=== PATIENT | female | born 1955 | race Caucasian/White ===

== ENCOUNTER 2017-01-08 13:42 | Day surgery (SDC) | payer MEDICARE, BC ==
[~2017-01-08 13:42] MED LIST: DIPRIVAN 200 MG/20 ML IV ONE; Kenalog-40 IM ONE; Lactated Ringers 1,000 ML IV ONE; Sensorcaine 0.25% 10 ML IJ ONE
--- NOTE | 2017-01-08 17:20 | XRAY ---
14 seconds fluoroscopy time in surgery for right side L2-5 MBB.
--- NOTE | 2017-01-10 02:53 | XRAY ---
Indication: Right L2-L5 MBB. Intraoperative fluoroscopy was provided for 14 seconds. Single digital spot image submitted for interpretation demonstrates posterior spinal needles with the tips projected over the expected course of the right L2-L5 nerve roots. Correlate with intraoperative findings/report.
== END 2017-01-08 16:00 | disposition home or self-care (01) ==
LOC: SDC-PAIN 13:42
PROVIDERS: ATTEND Pain Medicine Interventional Pain Medicine
DX: M47.816 Spondylosis without myelopathy or radiculopathy, lumbar region (principal); M96.1 Postlaminectomy syndrome, not elsewhere classified; M54.16 Radiculopathy, lumbar region
CPT/HCPCS: 64493; 64494; 64495; 72020; 77003; J2704; J3301

== ENCOUNTER 2018-01-17 14:59 | Inpatient (IN) | payer MEDICARE, BC ==
[2018-01-17] MEDS ORDERED: MORPHINE SULFATE 4 MG INJ IV ONE ×2 (15:24→17:51)
[2018-01-17] MEDS ORDERED: Zofran 4 MG/2 ML VIAL IV ONE (15:24)
[2018-01-17] MEDS ORDERED: Sodium Chloride 0.9% 1000 ML 1,000 ML IV STA (15:24)
[2018-01-17] MEDS ORDERED: Zofran 4 MG/2 ML VIAL ONE (15:34)
[2018-01-17] MEDS ORDERED: MORPHINE SULFATE 4 MG INJ ONE (15:35)
[2018-01-17] MEDS ORDERED: Sodium Chloride 0.9% 1000 ML 1,000 ML ONE (15:35)
--- NOTE | 2018-01-17 15:45 | ERPHSYRPT ---
- History of Present Illness Time Seen by Provider: 01/17/18 15:17 Historian: patient Exam Limitations: no limitations Patient Subjective Stated Complaint: Pt states "I woke up this morning and was having pain in my upper belly. The pain is now going into my back." Triage Nursing Assessment: Pt alert and oriented X 3, skin pwd. PT ambulates with an upright steady gait, able to speak in clear full sentences. Pt in no apparent respiratory distress. PT holding abdomen. Physician History: 62 y/o female comes to the ER with complaints of epigastric abdominal pain that started this afternoon. Pt describes the pain as sharp, constant, 10/10, with radiation to back and pt has not taken any pain meds. Pt also admits to nausea and vomiting. Pt denies any fever, chills, chest pain, shortness of breath, diarrhea or constipation. Timing/Duration: today Activities at Onset: none Quality: sharpness Abdominal Pain Onset Location: epigastric Pain Radiation: scapula, back Severity of Pain-Max: severe Severity of Pain-Current: severe Modifying Factors: Improves With: nothing Associated Symptoms: nausea, vomiting Previous symptoms: no prior history Allergies/Adverse Reactions: Latex, Natural Rubber Allergy (Intermediate, Verified 12/06/15 12:15) methotrexate Allergy (Intermediate, Verified 12/06/15 12:15) Home Medications: Albuterol 2.5 mg/0.5 ml [PROVENTIL Solution 2.5 MG/0.5 ML] 2.5 mg IH QID 10/21/15 [History] Alendronate Sodium 35 mg PO UD 10/21/15 [History] Calcium Carbonate/Vitamin D3 [Calcium 500-Vit D3 400 Tablet] 1 each PO DAILY [History] Esomeprazole Magnesium [Nexium] 20 mg PO .PRN 05/03/16 [History] Furosemide 20 mg [Lasix 20 mg] 20 mg PO DAILY 05/03/16 [History] Budesonide/Formoterol Fumarate [Symbicort 160-4.5 Mcg Inhaler] 2 puff IH BID [History] Cholecalciferol (Vitamin D3) [Vitamin D] 0 unit PO WEEKLY 07/02/16 [History ] Potassium Chloride 10 Meq Tab* [Klor Con 10 MEQ] 10 meq PO BID 07/02/16 [ History] Gabapentin 400 mg [Neurontin 400 MG] 400 - 1,200 mg PO QHS 11/10/17 [ History] Duloxetine HCl 30 mg [Cymbalta 30 MG Capsule] 30 mg PO DAILY 01/17/18 [ History] Hx Tetanus, Diphtheria Vaccination/Date Given: Yes Hx Influenza Vaccination/Date Given: Yes Hx Pneumococcal Vaccination/Date Given: No Immunizations Up to Date: Yes - Review of Systems Constitutional: No Fever, No Chills Eyes: No Symptoms Ears, Nose, & Throat: No Symptoms Respiratory: No Cough, No Dyspnea Cardiac: No Chest Pain, No Edema, No Syncope Abdominal/Gastrointestinal: Abdominal Pain, Nausea, Vomiting, No Diarrhea Genitourinary Symptoms: No Dysuria Musculoskeletal: No Back Pain, No Neck Pain Skin: No Rash Neurological: No Dizziness, No Focal Weakness, No Sensory Changes Psychological: No Symptoms Endocrine: No Symptoms All Other Systems: Reviewed and Negative - Past Medical History Pertinent Past Medical History: Yes Cardiac History: Hypertension Respiratory History: COPD Endocrine Medical History: Hypothyroidism Musculoskeletal History: Fibromyalgia, Osteoarthritis, Rheumatoid Arthritis Other Medical History: CHRONIC BACK PAIN. DVT'S - Past Surgical History Past Surgical History: Yes Other Surgical History: rt shoulder/foot. back surgery - Social History Smoking Status: Never smoker Exposure to second hand smoke: No Drug Use: none Patient Lives Alone: No - Female History Hx Now: No - Nursing Vital Signs Nursing Vital Signs: Initial Vital Signs Temperature 99.4 F 01/17/18 15:13 Pulse Rate 98 H 01/17/18 15:13 Respiratory Rate 18 01/17/18 15:13 Blood Pressure 193/112 01/17/18 15:13 O2 Sat by Pulse Oximetry 98 01/17/18 15:13 Pain Scale Pain Intensity 4 - Physical Exam General Appearance: mild distress, alert Eye Exam: PERRL/EOMI, eyes nml inspection Ears, Nose, Throat Exam: normal ENT inspection, pharynx normal, moist mucous membranes Neck Exam: normal inspection, non-tender, supple, full range of motion Respiratory Exam: normal breath sounds, lungs clear, No respiratory distress Cardiovascular Exam: regular rate/rhythm, normal heart sounds Gastrointestinal/Abdomen Exam: soft, normal bowel sounds, tenderness, No distention, No mass, No guarding, No rebound Back Exam: normal inspection, normal range of motion, No CVA tenderness, No vertebral tenderness Extremity Exam: normal inspection, normal range of motion, pelvis stable Neurologic Exam: alert, oriented x 3, cooperative, normal mood/affect, nml cerebellar function, sensation nml, No motor deficits Skin Exam: normal color, warm, dry SpO2: 98 Oxygen Delivery: Room Air - Course Nursing assessment & vital signs reviewed: Yes EKG Interpreted by Me: RATE, NORMAL AXIS, NORMAL INTERVALS, NORMAL QRS, NORMAL ST-T Ordered Tests: Active Orders 24 hr Category Date Time Status EKG-ER Only STAT Care 01/17/18 15:24 Active IV Insertion STAT Care 01/17/18 15:24 Active NPO (ED) STAT Care 01/17/18 15:24 Active ABDOMEN AND PELVIS W CONTRAST [CT] Stat Exams 01/17/18 16:12 Taken AMYLASE Stat Lab 01/17/18 15:30 Completed CBC W DIFF Stat Lab 01/17/18 15:30 Completed CMP Stat Lab 01/17/18 15:30 Completed LIPASE Stat Lab 01/17/18 15:30 Completed Lactic Acid Stat Lab 01/17/18 15:33 Completed PROTIME WITH INR Stat Lab 01/17/18 15:30 Completed TROPONIN Q3H Lab 01/17/18 15:30 Completed TROPONIN Q3H Lab 01/17/18 18:30 Ordered TROPONIN Q3H Lab 01/17/18 21:30 Ordered TROPONIN Q3H Lab 01/18/18 00:30 Ordered TROPONIN Q3H Lab 01/18/18 03:30 Ordered UA W/RFX UR CULTURE Stat Lab 01/17/18 17:45 Received Medication Summary Generic Name Dose Route Start Last Admin Trade Name Freq PRN Reason Stop Dose Admin Ampicillin Sodium/Sulbactam Sodium 3 gm in 100 mls @ 200 mls/hr 01/17/18 17: 44 Unasyn 3gm / Nacl 100ml IV 01/17/18 18:13 STAT STA Discontinued Medications Generic Name Dose Route Start Last Admin Trade Name Freq PRN Reason Stop Dose Admin Sodium Chloride 1,000 mls @ 999 mls/hr 01/17/18 15:24 01/17/18 15:43 Sodium Chloride 0.9% 1000 Ml IV 01/17/18 16:24 999 mls/hr .Q1H1M STA Administration Sodium Chloride Confirm 01/17/18 15:35 Sodium Chloride 0.9% 1000 Ml Administered 01/17/18 15:36 Dose 1,000 mls @ ud .ROUTE .STK-MED ONE Morphine Sulfate 4 mg 01/17/18 15:24 01/17/18 15:43 Morphine Sulfate 4 Mg Inj IV 01/17/18 15:25 4 mg STAT ONE Administration Morphine Sulfate Confirm 01/17/18 15:35 Morphine Sulfate 4 Mg Inj Administered 01/17/18 15:36 Dose 4 mg .ROUTE .STK-MED ONE Ondansetron HCl 4 mg 01/17/18 15:24 01/17/18 15:43 Zofran 4 Mg/2 Ml Vial IV 01/17/18 15:25 4 mg STAT ONE Administration Ondansetron HCl Confirm 01/17/18 15:34 Zofran 4 Mg/2 Ml Vial Administered 01/17/18 15:35 Dose 4 mg .ROUTE .STK-MED ONE Lab/Rad Data: Laboratory Result Diagrams 01/17/18 15:30 01/17/18 15:30 Laboratory Results 01/17/18 01/17/18 01/17/18 Range/Units 17:45 15:33 15:30 WBC (4.0-10.5) K/mm3 RBC (4.1-5.4) M/mm3 Hgb (12.0-16.0) gm/dl Hct (35-47) % MCV (78-100) fl MCH (26-32) pg MCHC (32-36) g/dl RDW (11.5-14.0) % Plt Count (150-450) K/mm3 MPV (6-9.5) fl Gran % (36.0-66.0) % Eos # (Auto) (0-0.5) Absolute Lymphs (auto) (1.0-4.6) Absolute Monos (auto) (0.0-1.3) Lymphocytes % (24.0-44.0) % Monocytes % (0.0-12.0) % Eosinophils % (0.00-5.0) % Basophils % (0.0-0.4) % Absolute Granulocytes (1.4-6.9) Basophils # (0-0.4) PT (9.95-12.35) SECONDS INR (0.8-3.0) Sodium (137-145) mmol/L Potassium (3.5-5.1) mmol/L Chloride (98-107) mmol/L Carbon Dioxide (22-30) mmol/L Anion Gap (5-15) MEQ/L BUN (7-17) mg/dL Creatinine (0.52-1.04) mg/dL Estimated GFR ML/MIN Glucose (74-106) mg/dL Lactic Acid 1.7 (0.4-2.0) Calcium (8.4-10.2) mg/dL Total Bilirubin (0.2-1.3) mg/dL AST (14-36) U/L ALT (0-35) U/L Alkaline Phosphatase (38-126) U/L Troponin I < 0.012 (0.000-0.034) ng/mL Serum Total Protein (6.3-8.2) g/dL Albumin (3.5-5.0) g/dL Amylase (30-110) U/L Lipase (23-300) U/L Ur Collection Type CLEAN CATCH Urine Color YELLOW (YELLOW) Urine Appearance CLEAR (CLEAR) Urine pH 7.5 (5-6) Ur Specific [place] 1.005 (1.005-1.025) Urine Protein NEGATIVE (Negative) Urine Ketones NEGATIVE (NEGATIVE) Urine Blood NEGATIVE (0-5) River/ul Urine Nitrite NEGATIVE (NEGATIVE) Urine Bilirubin NEGATIVE (NEGATIVE) Urine Urobilinogen NORMAL (0-1) mg/dL Ur Leukocyte Esterase NEGATIVE (NEGATIVE) Urine Culture Reflexed NO (NO) Urine Glucose NEGATIVE (NEGATIVE) mg/dL Specimen Received 01/17/18 3040 01/17/18 01/17/18 01/17/18 Range/Units 15:30 15:30 15:30 WBC 5.3 (4.0-10.5) K/mm3 RBC 4.96 (4.1-5.4) M/mm3 Hgb 13.9 (12.0-16.0) gm/dl Hct 43.1 (35-47) % MCV 86.9 (78-100) fl MCH 28.0 (26-32) pg MCHC 32.3 (32-36) g/dl RDW 13.8 (11.5-14.0) % Plt Count 513 H (150-450) K/mm3 MPV 9.8 H (6-9.5) fl Gran % 65.1 (36.0-66.0) % Eos # (Auto) 0.02 (0-0.5) Absolute Lymphs (auto) 1.10 (1.0-4.6) Absolute Monos (auto) 0.71 (0.0-1.3) Lymphocytes % 20.7 L (24.0-44.0) % Monocytes % 13.4 H (0.0-12.0) % Eosinophils % 0.4 (0.00-5.0) % Basophils % 0.4 (0.0-0.4) % Absolute Granulocytes 3.46 (1.4-6.9) Basophils # 0.02 (0-0.4) PT 26.0 H (9.95-12.35) SECONDS INR 2.22 (0.8-3.0) Sodium 141 (137-145) mmol/L Potassium 4.3 (3.5-5.1) mmol/L Chloride 106 (98-107) mmol/L Carbon Dioxide 25 (22-30) mmol/L Anion Gap 14.6 (5-15) MEQ/L BUN 11 (7-17) mg/dL Creatinine 0.84 (0.52-1.04) mg/dL Estimated GFR > 60.0 ML/MIN Glucose 134 H (74-106) mg/dL Lactic Acid (0.4-2.0) Calcium 9.2 (8.4-10.2) mg/dL Total Bilirubin 2.80 H (0.2-1.3) mg/dL AST 778 H (14-36) U/L ALT 458 H (0-35) U/L Alkaline Phosphatase 189 H (38-126) U/L Troponin I (0.000-0.034) ng/mL Serum Total Protein 7.7 (6.3-8.2) g/dL Albumin 4.0 (3.5-5.0) g/dL Amylase 52 (30-110) U/L Lipase 111 (23-300) U/L Ur Collection Type Urine Color (YELLOW) Urine Appearance (CLEAR) Urine pH (5-6) Ur Specific [place] (1.005-1.025) Urine Protein (Negative) Urine Ketones (NEGATIVE) Urine Blood (0-5) River/ul Urine Nitrite (NEGATIVE) Urine Bilirubin (NEGATIVE) Urine Urobilinogen (0-1) mg/dL Ur Leukocyte Esterase (NEGATIVE) Urine Culture Reflexed (NO) Urine Glucose (NEGATIVE) mg/dL Specimen Received - Progress Progress: improved Progress Note: 01/17/18 17:45 Pt feels better after receiving morphine, zofran and NS fluids. The CT scan abd/ pelvis shows enlarged 5.5 cm transverse diameter gallbladder and mild 4.1 mm gallbladder wall thickening. Pt also has elevated LFTs. I spoke to Dr Cortes who wants the patient to be admitted to Dr Toth and he will see the patient in the morning. Pt will be started on unasyn. Pt has been admitted to Dr Toth. - Departure Time of Disposition: 17:47 Departure Disposition: In-patient Admission Clinical Impression: Cholecystitis Condition: Fair Critical Care Time: Yes Critical Care Time(excluding separately billable procedures): 30-74 minutes Referrals: JONNATHAN WOODSON [Primary Care Provider] -
[2018-01-17 15:53] LABS: INR 2.22 (0.8-3.0)
[2018-01-17 15:57] LABS: BASOPHIL % 0.4 % (0.0-0.4); Basophil (Absolute #) 0.02 (0-0.4); Eosinophil % 0.4 % (0.00-5.0); Eosinophil (Absolute #) 0.02 (0-0.5); Granulocyte Absolute (ANC) 3.46 (1.4-6.9); Granulocytes % 65.1 % (36.0-66.0); Hematocrit 43.1 % (35-47); Hemoglobin 13.9 gm/dl (12.0-16.0); Lymphocytes % 20.7 % (24.0-44.0); Mean Cell Volume 86.9 fl (78-100); Mean Corpuscular Hgb Concent. 32.3 g/dl (32-36); Mean Platelet Volume 9.8 fl (6-9.5); Monocyte (Absolute #) 0.71 (0.0-1.3); Monocytes % 13.4 % (0.0-12.0); Platelet Count 513 K/mm3 (150-450); Red Blood Count 4.96 M/mm3 (4.1-5.4); Red Cell Distribution Width 13.8 % (11.5-14.0); White Blood Count 5.3 K/mm3 (4.0-10.5)
[2018-01-17 16:05] LABS: ALKALINE PHOSPHATASE 189 U/L (38-126); AMYLASE 52 U/L (30-110); ANION GAP 14.6 MEQ/L (5-15); BLOOD UREA NITROGEN 11 mg/dL (7-17); CHLORIDE 106 mmol/L (98-107); Calcium 9.2 mg/dL (8.4-10.2); Carbon Dioxide 25 mmol/L (22-30); Creatinine 1 0.84 mg/dL (0.52-1.04); Glucose 134 mg/dL (74-106); LIPASE 111 U/L (23-300); Potassium 4.3 mmol/L (3.5-5.1); SGPT/ALT 458 U/L (0-35); SODIUM 141 mmol/L (137-145); Total Protein 7.7 g/dL (6.3-8.2)
[2018-01-17 16:16] LABS: SGOT/AST 778 U/L (14-36)
[2018-01-17] MEDS ORDERED: Unasyn 3GM / NaCl 100ML 3 GM/100 ML IVPB IV STA (17:44)
[2018-01-17 17:51] LABS: Appearance CLEAR (CLEAR); Bilirubin NEGATIVE (NEGATIVE); Blood NEGATIVE Ery/ul (0-5); Glucose NEGATIVE (NEGATIVE); Ketones NEGATIVE (NEGATIVE); Leukocyte Esterase NEGATIVE (NEGATIVE); Nitrite NEGATIVE (NEGATIVE); Ph 7.5 (5-6); Protein,Urine Dip NEGATIVE (Negative); Specific Gravity 1.005 (1.005-1.025); Urobilinogen NORMAL mg/dL (0-1)
[2018-01-17] MEDS: Unasyn 3GM / NaCl 100ML 3 GM/100 ML IVPB IV SCH ×2 (18:33→23:54)
[2018-01-17] MEDS: Sodium Chloride 0.9% 1000 ML 1,000 ML IV SCH (18:45)
--- NOTE | 2018-01-17 21:06 | XRAY ---
Indication: Cholecystitis. Multiple contiguous axial images obtained through the abdomen and pelvis using 80 cc Isovue 370 contrast only. Comparison: None. Lung bases demonstrates minimal bibasilar dependent atelectasis and bibasilar fibrosis/scarring. No infiltrate or effusion. Heart is not enlarged. Moderate size hiatal hernia. Noncontrasted stomach and bowel loops appear nonobstructed. Normal appendix. Gallbladder is abnormally distended up to 5.5 cm in diameter with wall thickening/enhancement and minimal biliary distention. No free fluid/air. Calcified splenic granulomas. Tiny 5 mm right lower pole cortical cyst. Remaining liver, pancreas, spleen, adrenal glands, kidneys, ureters, bladder, and uterus appear unremarkable. Minimal aortic calcifications. No AAA or pathologic retroperitoneal lymphadenopathy. Osseous structures intact with moderate mid lumbar degenerative spondylosis and mild levoscoliosis centered at L. Impression: 1. Abnormal distended gallbladder with wall thickening/enhancement and minimal biliary distention but no gallstones. Rule out acalculous cholecystitis. 2. Incidental hiatal hernia, right renal cyst, and evidence for old granulomatous disease. Comment: Preliminary interpretation was made by C. No critical discrepancy. CTDI 23.68
[2018-01-17] MEDS ORDERED: Neurontin 400 MG PO SCH (22:00)
[2018-01-17] MEDS: Zofran 4 MG/2 ML VIAL IV PRN (22:14)
[2018-01-17] MEDS: MORPHINE SULFATE 4 MG INJ IV PRN (22:14)
[2018-01-17] MEDS: Neurontin 400 MG PO SCH (22:24)
[2018-01-17] MEDS: Cymbalta 30 MG Capsule PO SCH (22:24)
[2018-01-18] MEDS: Sodium Chloride 0.9% 1000 ML 1,000 ML IV SCH ×2 (05:22→16:45)
[2018-01-18] MEDS: MORPHINE SULFATE 4 MG INJ IV PRN ×2 (05:23→09:24)
[2018-01-18] MEDS: Unasyn 3GM / NaCl 100ML 3 GM/100 ML IVPB IV SCH ×4 (05:26→23:10)
[2018-01-18 05:41] LABS: BASOPHIL % 0.2 % (0.0-0.4); Basophil (Absolute #) 0.02 (0-0.4); Eosinophil % 0.2 % (0.00-5.0); Eosinophil (Absolute #) 0.02 (0-0.5); Granulocyte Absolute (ANC) 7.11 (1.4-6.9); Granulocytes % 73.4 % (36.0-66.0); Hematocrit 40.4 % (35-47); Lymphocyte (Absolute #) 0.83 (1.0-4.6); Lymphocytes % 8.6 % (24.0-44.0); Mean Cell Volume 87.8 fl (78-100); Mean Corpuscular Hemoglobin 28.3 pg (26-32); Mean Corpuscular Hgb Concent. 32.2 g/dl (32-36); Mean Platelet Volume 9.6 fl (6-9.5); Monocyte (Absolute #) 1.71 (0.0-1.3); Monocytes % 17.6 % (0.0-12.0); Platelet Count 452 K/mm3 (150-450); Red Cell Distribution Width 13.9 % (11.5-14.0); White Blood Count 9.7 K/mm3 (4.0-10.5)
[2018-01-18 05:58] LABS: ALBUMIN 3.3 g/dL (3.5-5.0); ALKALINE PHOSPHATASE 171 U/L (38-126); ANION GAP 11.9 MEQ/L (5-15); BLOOD UREA NITROGEN 9 mg/dL (7-17); CHLORIDE 110 mmol/L (98-107); Calcium 8.4 mg/dL (8.4-10.2); Carbon Dioxide 24 mmol/L (22-30); Creatinine 1 0.77 mg/dL (0.52-1.04); Glucose 110 mg/dL (74-106); INR 2.43 (0.8-3.0); Potassium 3.9 mmol/L (3.5-5.1); SGOT/AST 402 U/L (14-36); SGPT/ALT 317 U/L (0-35); SODIUM 142 mmol/L (137-145); Total Protein 6.7 g/dL (6.3-8.2)
--- NOTE | 2018-01-18 08:51 | PCM.HP ---
History of Present Illness - Chief Complaint Chief Complaint: choleystitis History of Present Illness: is a 62 year old female who presented to the ER with acute onset of epigastric abdominal pain. She had associated nausea and vomiting as well. Interestingly she has been seeing pain management for pain in her lower rib area for the last few weeks and has a chest CT and MRI of t-spine scheduled for tomorrow to evaluate these concerns. She denies any change in bowel habits. - Review of Systems Constitutional: No Fever, No Chills Respiratory: No Cough, No Short Of Breath Cardiac: No Chest Pain, No Edema, No Syncope Abdominal/Gastrointestinal: Abdominal Pain, Nausea, Vomiting, No Diarrhea, No Constipation, No Hematemesis, No Hematochezia Genitourinary Symptoms: No Dysuria Skin: No Rash All Other Systems: Reviewed and Negative Medications & Allergies Home Medications: Home Medication List Alendronate Sodium 35 mg PO WEEKLY 10/21/15 [History Confirmed 01/17/18] Esomeprazole Magnesium [Nexium] 20 mg PO .PRN 05/03/16 [History Confirmed ] Furosemide 20 mg [Lasix 20 mg] 20 mg PO DAILY 05/03/16 [History Confirmed 01/17/18] Budesonide/Formoterol Fumarate [Symbicort 160-4.5 Mcg Inhaler] 2 puff IH BID [History Confirmed 01/17/18] Cholecalciferol (Vitamin D3) [Vitamin D] 50,000 unit PO WEEKLY 07/02/16 [ History Confirmed 01/17/18] Potassium Chloride 10 Meq Tab* [Klor Con 10 MEQ] 10 meq PO BID 07/02/16 [ History Confirmed 01/17/18] Gabapentin 400 mg [Neurontin 400 MG] 400 mg PO TID 11/10/17 [History Confirmed 01/17/18] Calcium Carbonate/Vitamin D3 [Calcium 600 + Vit D Caplet] 1 each PO BID [History Confirmed 01/17/18] Duloxetine HCl 30 mg [Cymbalta 30 MG Capsule] 30 mg PO HS 01/17/18 [ History Confirmed 01/17/18] Levothyroxine Sodium 88 Mcg [Synthroid 88 Mcg] 88 mcg PO DAILY 01/17/18 [ History Confirmed 01/17/18] Umeclidinium [place] [Incruse Ellipta] 62.5 mcg IH DAILY 01/17/18 [History Confirmed 01/17/18] Warfarin Sodium 3 mg [Coumadin 3 MG] 3 mg PO DAILY 01/17/18 [History Confirmed 01/17/18] Warfarin Sodium [Coumadin] 4 mg PO UD 01/17/18 [History Confirmed 01/17/18] Allergies/Adverse Reactions: Allergies Allergy/AdvReac Type Severity Reaction Status Date / Time Latex, Natural Rubber Allergy Intermediate Verified 12/06/15 12:15 methotrexate Allergy Intermediate Verified 12/06/15 12:15 - Past Medical History Past Medical History: Yes Neurological History: Peripheral Neuropathy ENT History: No Pertinent History Cardiac History: Hypertension Respiratory History: COPD Endocrine Medical History: Hypothyroidism Musculoskelatal History: Fibromyalgia, Osteoarthritis, Rheumatoid Arthritis GI Medical History: No Pertinent History History: Other Pyscho-Social History: Anxiety Comment: CHRONIC BACK PAIN. Kidney disease. DVT'S - Female History Are you now?: No - Past Surgical History Past Surgical History: Yes Neuro Surgical History: No Pertinent History Cardiac History: No Pertinent History Respiratory Surgery: No Pertinent History GI Surgical History: No Pertinent History Genitourinary Surgical Hx: No Pertinent History Musculskeletal Surgical Hx: Orthopedic Surgery Female Surgical History: No Pertinent History Other Surgical History: rt shoulder/foot. back surgery. - Social History Smoking Status: Never smoker Exposure to second hand smoke: No Alcohol: None Drug Use: none - Physical Exam Vital Signs: Vital Signs - 24 hr Temp Pulse Resp BP Pulse Ox 01/18/18 07:16 98.2 F 90 20 109/60 98 01/18/18 04:00 98.5 F 92 H 20 133/70 94 L 01/18/18 00:00 98.3 F 79 20 121/67 91 L 01/17/18 20:00 98.8 F 84 18 144/81 94 L 01/17/18 18:47 98.4 F 84 94 H 136/72 98 01/17/18 17:52 98 01/17/18 17:40 83 20 136/72 95 01/17/18 16:40 84 20 146/80 95 06/09/18 15:13 99.4 F 98 H 18 193/112 98 General Appearance: no apparent distress, alert Eye Exam: PERRL/EOMI, eyes nml inspection Respiratory Exam: normal breath sounds, lungs clear, No respiratory distress Cardiovascular Exam: regular rate/rhythm, normal heart sounds, normal peripheral pulses Gastrointestinal/Abdomen Exam: normal bowel sounds, tenderness (RUQ), No distention, No guarding Extremity Exam: normal inspection, normal range of motion, pelvis stable Skin Exam: normal color, warm, dry, No rash Results - Labs Lab/Micro Results: Lab Results-Last 24 Hours 01/17/18 01/17/18 01/18/18 Range/Units 18:30 21:45 01:00 WBC (4.0-10.5) K/mm3 RBC (4.1-5.4) M/mm3 Hgb (12.0-16.0) gm/dl Hct (35-47) % MCV (78-100) fl MCH (26-32) pg MCHC (32-36) g/dl RDW (11.5-14.0) % Plt Count (150-450) K/mm3 MPV (6-9.5) fl Gran % (36.0-66.0) % Eos # (Auto) (0-0.5) Absolute Lymphs (auto) (1.0-4.6) Absolute Monos (auto) (0.0-1.3) Lymphocytes % (24.0-44.0) % Monocytes % (0.0-12.0) % Eosinophils % (0.00-5.0) % Basophils % (0.0-0.4) % Absolute Granulocytes (1.4-6.9) Basophils # (0-0.4) PT (9.95-12.35) SECONDS INR (0.8-3.0) Sodium (137-145) mmol/L Potassium (3.5-5.1) mmol/L Chloride (98-107) mmol/L Carbon Dioxide (22-30) mmol/L Anion Gap (5-15) MEQ/L BUN (7-17) mg/dL Creatinine (0.52-1.04) mg/dL Estimated GFR ML/MIN Glucose (74-106) mg/dL Calcium (8.4-10.2) mg/dL Total Bilirubin (0.2-1.3) mg/dL AST (14-36) U/L ALT (0-35) U/L Alkaline Phosphatase (38-126) U/L Troponin I < 0.012 < 0.012 < 0.012 (0.000-0.034) ng/mL Serum Total Protein (6.3-8.2) g/dL Albumin (3.5-5.0) g/dL 01/18/18 01/18/18 01/18/18 Range/Units 05:05 05:05 05:05 WBC 9.7 (4.0-10.5) K/mm3 RBC 4.60 (4.1-5.4) M/mm3 Hgb 13.0 (12.0-16.0) gm/dl Hct 40.4 (35-47) % MCV 87.8 (78-100) fl MCH 28.3 (26-32) pg MCHC 32.2 (32-36) g/dl RDW 13.9 (11.5-14.0) % Plt Count 452 H (150-450) K/mm3 MPV 9.6 H (6-9.5) fl Gran % 73.4 H (36.0-66.0) % Eos # (Auto) 0.02 (0-0.5) Absolute Lymphs (auto) 0.83 L (1.0-4.6) Absolute Monos (auto) 1.71 H (0.0-1.3) Lymphocytes % 8.6 L (24.0-44.0) % Monocytes % 17.6 H (0.0-12.0) % Eosinophils % 0.2 (0.00-5.0) % Basophils % 0.2 (0.0-0.4) % Absolute Granulocytes 7.11 H (1.4-6.9) Basophils # 0.02 (0-0.4) PT (9.95-12.35) SECONDS INR (0.8-3.0) Sodium 142 (137-145) mmol/L Potassium 3.9 (3.5-5.1) mmol/L Chloride 110 H (98-107) mmol/L Carbon Dioxide 24 (22-30) mmol/L Anion Gap 11.9 (5-15) MEQ/L BUN 9 (7-17) mg/dL Creatinine 0.77 (0.52-1.04) mg/dL Estimated GFR > 60.0 ML/MIN Glucose 110 H (74-106) mg/dL Calcium 8.4 (8.4-10.2) mg/dL Total Bilirubin 3.90 H (0.2-1.3) mg/dL AST 402 H (14-36) U/L ALT 317 H (0-35) U/L Alkaline Phosphatase 171 H (38-126) U/L Troponin I < 0.012 (0.000-0.034) ng/mL Serum Total Protein 6.7 (6.3-8.2) g/dL Albumin 3.3 L (3.5-5.0) g/dL 01/18/18 Range/Units 05:05 WBC (4.0-10.5) K/mm3 RBC (4.1-5.4) M/mm3 Hgb (12.0-16.0) gm/dl Hct (35-47) % MCV (78-100) fl MCH (26-32) pg MCHC (32-36) g/dl RDW (11.5-14.0) % Plt Count (150-450) K/mm3 MPV (6-9.5) fl Gran % (36.0-66.0) % Eos # (Auto) (0-0.5) Absolute Lymphs (auto) (1.0-4.6) Absolute Monos (auto) (0.0-1.3) Lymphocytes % (24.0-44.0) % Monocytes % (0.0-12.0) % Eosinophils % (0.00-5.0) % Basophils % (0.0-0.4) % Absolute Granulocytes (1.4-6.9) Basophils # (0-0.4) PT 28.5 H (9.95-12.35) SECONDS INR 2.43 (0.8-3.0) Sodium (137-145) mmol/L Potassium (3.5-5.1) mmol/L Chloride (98-107) mmol/L Carbon Dioxide (22-30) mmol/L Anion Gap (5-15) MEQ/L BUN (7-17) mg/dL Creatinine (0.52-1.04) mg/dL Estimated GFR ML/MIN Glucose (74-106) mg/dL Calcium (8.4-10.2) mg/dL Total Bilirubin (0.2-1.3) mg/dL AST (14-36) U/L ALT (0-35) U/L Alkaline Phosphatase (38-126) U/L Troponin I (0.000-0.034) ng/mL Serum Total Protein (6.3-8.2) g/dL Albumin (3.5-5.0) g/dL Assessment/Plan (1) Epigastric abdominal pain Current Visit: Yes Status: Acute Assessment & Plan: CT shows enlarged gallbladder with thick wall suspicious for acalculus cholecystitis. continue IV Unasyn, surgery consult pending. elevation of LFT's noted but no CBD dilatation seen on CT and they have improved since admission, NPO and IV abx therapy initiated. Code(s): R10.13 - EPIGASTRIC PAIN (2) Cholecystitis Current Visit: Yes Status: Acute Assessment & Plan: on Unasyn and surgery consult pending. Code(s): K81.9 - CHOLECYSTITIS, UNSPECIFIED
[2018-01-18] MEDS: Zofran 4 MG/2 ML VIAL IV PRN ×2 (09:27→20:13)
[2018-01-18] MEDS ORDERED: MEDICATION INTERVENTION MC SCH (10:00)
[2018-01-18] MEDS ORDERED: Neurontin 400 MG PO SCH ×2 (10:00→16:00)
[2018-01-18] MEDS ORDERED: NON-FORMULARY ITEM (Budesonide/Formoterol Fumarate [Symbicort 160-4.5 Mcg Inhaler] 2 PUFF) IH SCH (10:00)
[2018-01-18] MEDS ORDERED: SYNTHROID 88 MCG PO SCH (10:00)
[2018-01-18] MEDS ORDERED: NON-FORMULARY ITEM (Umeclidinium Bromide [Incruse Ellipta] 62.5 MCG) IH SCH (10:00)
[2018-01-18 10:23] LABS: Slide Review 1 YES
[2018-01-18] MEDS: Advair Hfa 230/21 Mcg COMMON CANISTER IH SCH ×2 (10:49→19:12)
[2018-01-18] MEDS: DILAUDID 2 MG INJECTION IV PRN ×2 (11:53→20:08)
[2018-01-18] MEDS: Cymbalta 30 MG Capsule PO SCH (22:00)
[2018-01-18] MEDS: Neurontin 400 MG PO SCH (22:01)
[2018-01-19] MEDS: Sodium Chloride 0.9% 1000 ML 1,000 ML IV SCH (04:01)
[2018-01-19] MEDS: Zofran 4 MG/2 ML VIAL IV PRN ×2 (04:02→10:14)
[2018-01-19] MEDS: Unasyn 3GM / NaCl 100ML 3 GM/100 ML IVPB IV SCH (05:42)
[2018-01-19 06:14] LABS: Hemoglobin 12.7 gm/dl (12.0-16.0); Mean Cell Volume 88.4 fl (78-100); Mean Corpuscular Hemoglobin 28.8 pg (26-32); Mean Corpuscular Hgb Concent. 32.6 g/dl (32-36); Mean Platelet Volume 9.9 fl (6-9.5); Platelet Count 407 K/mm3 (150-450); Red Blood Count 4.41 M/mm3 (4.1-5.4); Red Cell Distribution Width 14.2 % (11.5-14.0); White Blood Count 11.3 K/mm3 (4.0-10.5)
[2018-01-19 06:24] LABS: ALBUMIN 3.3 g/dL (3.5-5.0); ALKALINE PHOSPHATASE 186 U/L (38-126); ANION GAP 13.5 MEQ/L (5-15); BLOOD UREA NITROGEN 10 mg/dL (7-17); CHLORIDE 111 mmol/L (98-107); Calcium 8.1 mg/dL (8.4-10.2); Carbon Dioxide 22 mmol/L (22-30); Creatinine 1 0.68 mg/dL (0.52-1.04); Glucose 88 mg/dL (74-106); Potassium 3.7 mmol/L (3.5-5.1); SGOT/AST 214 U/L (14-36); SGPT/ALT 221 U/L (0-35); SODIUM 142 mmol/L (137-145); Total Protein 6.6 g/dL (6.3-8.2)
[2018-01-19] MEDS: Advair Hfa 230/21 Mcg COMMON CANISTER IH SCH (06:56)
[2018-01-19] MEDS: DILAUDID 2 MG INJECTION IV PRN (07:39)
[2018-01-19 08:03] VITALS: BP 146/64; PULSE 93; O2SAT 95
--- NOTE | 2018-01-19 09:06 | CONS ---
CONSULT DATE: 01/18/2018 REASON FOR CONSULT: Symptomatic cholelithiasis, acute cholecystitis. HISTORY: The patient is a 62 year-old female who came through the emergency room complaining of sudden onset of abdominal pain localizing in the epigastric and right upper quadrant area 10 out of 10. She had some nausea and vomiting. She denies any fever or chills, any shortness of breath. The patient was evaluated in the emergency room with CT scan which showed some inflammatory changes of the gallbladder wall and also some elevated liver enzymes. She was admitted for surgical management. PAST MEDICAL HISTORY: Positive for hypertension, chronic obstructive pulmonary disease, hypothyroidism. She also had osteoarthritis. Rheumatoid arthritis and chronic back pain. History of deep venous thrombosis. The patient has also been on Coumadin because of the deep venous thrombosis. PAST SURGICAL HISTORY: Shoulder surgery, foot surgery and back surgery. She also had section in the past. PHYSICAL EXAMINATION: She is alert, oriented. HEENT: Pupils are equal normoreactive. NECK: Supple. COR: Regular rhythm. ABDOMEN: Tender in the right upper quadrant. EXTREMITIES: Within normal limits. No pedal edema. LAB DATA AND TESTS: Normal white count. Liver enzymes seem to be elevated. On admission the total bilirubin was 2.8 and today was 3.4. IMPRESSION: At this point in time I suspect the possibility of acalculous cholelithiasis. The plan is to keep her on antibiotics, a lot of clear liquids today, nothing to eat or drink after midnight and proceed with MRCP tomorrow. If a common bile duct stone is found she will need to be transferred to [facility] for ERCP, laparoscopic cholecystectomy to follow.
--- NOTE | 2018-01-20 11:19 | DS ---
DISCHARGE DIAGNOSES: 1) ABDOMINAL PAIN. 2) CHOLECYSTITIS. 3) ELEVATED LIVER FUNCTION TEST WITH OBSTRUCTIVE PATTERN. 4) CORE WINDER ANTICOAGULATION FOR ANTIPHOPHOLIPID ANTIBODY SYNDROME. DISCHARGE PHYSICAL EXAMINATION: VITALS: Temperature current 98.9F, temperature max 98.9F, heart rate 81 to 93, respiratory rate 16 to 18, blood pressure 138 to 146 over 64 to 86. Oxygen saturation 93 to 96% on room air. GENERAL: The patient is lying in bed in no acute distress. CVS: She has a regular rate and rhythm. No murmurs, gallops or rubs are appreciated. CHEST: Clear to auscultation bilaterally. No crackles or wheezes. ABDOMEN: She had tenderness epigastric and right upper quadrant. She had normal bowel sounds. No guarding. No rigidity. Normal bowel sounds. EXTREMITIES: No clubbing, cyanosis or edema. SKIN: Warm, dry and intact. HOSPITAL COURSE: 1) ABDOMINAL PAIN: She was admitted through the emergency room after having a CT scan of her abdomen and pelvis that was read as abnormal distended gallbladder with wall thickening, enhancement and minimal biliary distention but no gallstones; rule out acalculus cholecystitis and an incidental hiatal hernia. General surgeon, Dr. Stanley Joy, was called from the emergency room and consulted on 01/18/2018 and asked for MRCP on 01/19/2018. However before this was done Dr. Adame was contacted as he was be covering on 01/19/2018 and he wanted her transferred for an ERCP regardless whether or not she had the MRCP or what the results were as he felt like she needed an ERCP to look for a possible common bile duct stone. The patient required medication for nausea and IV Dilaudid during her hospital stay for abdominal pain. She was on Unasyn since being in the emergency department. Her white blood cell count was initially 5.3 and at the time of discharge was 11.3. The case was discussed with Dr. Romero who was available at [facility] to do an ERCP. I then discussed with the Hospitalist, Dr. Hinton, who was willing to have the patient transferred under his care to see the specialist. 2) CHOLECYSTITIS: Eventually she will need her gallbladder removed. However first she needs further evaluation for possible common bile duct stone. 3) ELEVATED LIVER FUNCTION TESTS WITH OBSTRUCTION: AST, ALT, alkaline phosphatase and total bilirubin were all elevated. The bilirubin slowly went up during her hospitalization and was 4.5 at the time of her discharge. 4) CORE WINDER ANTICOAGULATION: Dr. Toth held her Coumadin on 01/18/2018 in preparation for possible surgery. She is on Coumadin for history of antiphospholipid antibody syndrome. DISCHARGE MEDICATIONS: Please see her current inpatient medications at the time of discharge. DISPOSITION: The patient was discharged to [facility] in fair condition. She needed to see a specialist for ERCP, further evaluation and management. The surgeon wanted her to have an ERCP before they would think about doing the cholecystectomy and we do not have an ERCP available here at our hospital.
== END 2018-01-19 10:15 | disposition short-term general hospital (02) | DRG 445 ==
LOC: ED 14:59 → MED SURG 18:19
PROVIDERS: ADMIT Family Medicine; ATTEND Internal Medicine
DX: K80.00 Calculus of gallbladder with acute cholecystitis without obstruction (principal); D68.61 Antiphospholipid syndrome; R10.13 Epigastric pain; R79.89 Other specified abnormal findings of blood chemistry; Z79.01 Long term (current) use of anticoagulants; Z79.899 Other long term (current) drug therapy; G62.9 Polyneuropathy, unspecified; K81.9 Cholecystitis, unspecified; I10 Essential (primary) hypertension; J44.9 Chronic obstructive pulmonary disease, unspecified; E03.9 Hypothyroidism, unspecified; M79.7 Fibromyalgia; F41.9 Anxiety disorder, unspecified; E80.7 Disorder of bilirubin metabolism, unspecified; I12.9 Hypertensive chronic kidney disease with stage 1 through stage 4 chronic kidney disease, or unspecified chronic kidney disease; N18.9 Chronic kidney disease, unspecified; M19.90 Unspecified osteoarthritis, unspecified site; M06.9 Rheumatoid arthritis, unspecified; Z86.718 Personal history of other venous thrombosis and embolism
CPT/HCPCS: 36000; 36415; 74177; 80053; 81002; 82150; 83605; 83690; 84484; 85025; 85027; 85610; 93005; 94150; 94640; 94760; 96360; 96365; 96374; 96375; 96376; 99285; J0295; J1170; J2270; J2405; A9270-GY

== ENCOUNTER 2020-07-01 12:31 | Inpatient (IN) | payer MEDICARE ==
[2020-07-01] MEDS ORDERED: DUONEB 0.5-3 MG/3 ml Neb IH ONE ×2 (12:56→13:02)
[2020-07-01] MEDS ORDERED: Sodium Chloride 0.9% 1000 ML 1,000 ML IV SCH (13:00)
--- NOTE | 2020-07-01 13:02 | ERPHSYRPT ---
- History of Present Illness Time Seen by Provider: 07/01/20 12:59 Source: patient, EMS Exam Limitations: no limitations Patient Subjective Stated Complaint: SOB, cough, ASH Triage Nursing Assessment: pt to ED c/o ASH, SOB, chest tightness. pt states SOB last night and increasing today. pt does have hx COPD and does not require home o2. arrives to ED on 2 L NC O2 sat 96%. does appear SOB but states she is feeling more relief. lungs clear in bases bilaterally, audible wheezing and wheezing auscultated in upper lungs. cap refil < 3 sec. denies COVID exposure. Physician History: 64-year-old female with significant past medical history of COPD morbid obesity started having a headache cough shortness of breath since last night which got worse today morning she called ambulance and patient was brought into the emergency room. When came to the emergency room patient was feeling little bit better after was given oxygen and nebulizer treatment. Patient denies any chest pain nausea vomiting diarrhea abdominal pain or Covid exposure. Patient also denies any fever or chills Timing/Duration: yesterday Severity of Dyspnea-Max: moderate Severity of Dyspnea-Current: mild Possible Cause: frequent episodes Modifying Factors: Improves With: albuterol nebulizer Associated Symptoms: cough, No fever, No productive cough Allergies/Adverse Reactions: Latex, Natural Rubber Allergy (Intermediate, Verified 07/01/20 12:54) methotrexate Allergy (Intermediate, Verified 07/01/20 12:54) Home Medications: Alendronate Sodium 35 mg PO WEEKLY 10/21/15 [History] Furosemide 20 mg [Lasix 20 mg] 20 mg PO DAILY 05/03/16 [History] Cholecalciferol (Vitamin D3) [Vitamin D] 50,000 unit PO WEEKLY 07/02/16 [History] Potassium Chloride 10 Meq Tab* [Klor Con 10 MEQ] 10 meq PO BID 07/02/16 [History] Gabapentin 400 mg [Neurontin 400 MG] 400 mg PO TID 11/10/17 [History] Calcium Carbonate/Vitamin D3 [Calcium 600 + Vit D Caplet] 1 each PO BID 01/17/18 [History] Levothyroxine Sodium 88 Mcg [Synthroid 88 Mcg] 88 mcg PO DAILY 01/17/18 [History] Warfarin Sodium 3 mg [Coumadin 3 MG] 3 mg PO DAILY 01/17/18 [History] Warfarin Sodium [Coumadin] 4 mg PO UD 01/17/18 [History] Hx Tetanus, Diphtheria Vaccination/Date Given: No Hx Influenza Vaccination/Date Given: Yes Hx Pneumococcal Vaccination/Date Given: Yes Immunizations Up to Date: Yes Travel Risk - International Travel Have you traveled outside of the country in past 3 weeks: No - Coronavirus Screening Are you exhibiting any of the following symptoms?: Yes Symptoms: Cough: New Onset, Shortness of Breath, Headaches/Body Aches/Fatigue Close contact with a COVID-19 positive Pt in past 14-21 Days: No - Review of Systems Constitutional: No Fever, No Chills Eyes: No Symptoms Ears, Nose, & Throat: No Symptoms Respiratory: Cough, Dyspnea on Exertion (MIRZA), No Dyspnea Cardiac: No Chest Pain, No Edema, No Syncope Abdominal/Gastrointestinal: No Abdominal Pain, No Nausea, No Vomiting, No Diarrhea Genitourinary Symptoms: No Dysuria Musculoskeletal: No Back Pain, No Neck Pain Skin: No Rash Neurological: Headache, No Dizziness, No Focal Weakness, No Sensory Changes Psychological: No Symptoms Endocrine: No Symptoms All Other Systems: Reviewed and Negative - Past Medical History Pertinent Past Medical History: Yes Neurological History: Peripheral Neuropathy ENT History: No Pertinent History Cardiac History: Hypertension Respiratory History: COPD Endocrine Medical History: Hypothyroidism Musculoskeletal History: Fibromyalgia, Osteoarthritis, Rheumatoid Arthritis GI Medical History: No Pertinent History History: Other Psycho-Social History: Anxiety Other Medical History: CHRONIC BACK PAIN. Kidney disease. DVT'S - Past Surgical History Past Surgical History: Yes Neuro Surgical History: No Pertinent History Cardiac: No Pertinent History Respiratory: No Pertinent History Gastrointestinal: Cholecystectomy Genitourinary: No Pertinent History Musculoskeletal: Orthopedic Surgery Female Surgical History: No Pertinent History Other Surgical History: rt shoulder/foot. back surgery. - Social History Smoking Status: Never smoker Exposure to second hand smoke: No Drug Use: none Patient Lives Alone: No - Female History Hx Now: No - Nursing Vital Signs Nursing Vital Signs: Initial Vital Signs Temperature 97.5 F 07/01/20 12:36 Pulse Rate 99 H 07/01/20 12:36 Respiratory Rate 23 07/01/20 12:36 Blood Pressure 157/96 07/01/20 12:36 O2 Sat by Pulse Oximetry 97 07/01/20 12:36 Pain Scale Pain Intensity 6 - Physical Exam General Appearance: no apparent distress, alert Eye Exam: PERRL/EOMI Neck Exam: normal inspection, supple Respiratory Exam: diminished breath sounds, crackles/rales Cardiovascular/Chest Exam: normal heart sounds, regular rate/rhythm Abdominal/Gastrointestinal Exam: soft, No tenderness, No distention, No mass Extremity Exam: non-tender, normal range of motion, normal inspection, no calf tenderness, no pedal edema Neurologic Exam: alert, oriented x 3, cooperative, check totaler II-XII nml as tested, sensation nml, No motor deficits Skin Exam: normal color, warm, No dry SpO2 Interpretation: normal SpO2: 97 O2 Delivery: Nasal Cannula Ordered Tests: Active Orders 24 hr Category Date Time Status [facility] STAT Care 07/01/20 12:58 Active EKG-ER Only STAT Care 07/01/20 12:58 Active CHEST 1 VIEW (PORTABLE) Stat Exams 07/01/20 12:57 Taken CBC W DIFF Stat Lab 07/01/20 13:22 Completed CMP Stat Lab 07/01/20 13:22 Completed NT PRO BNP Stat Lab 07/01/20 13:22 Completed TROPONIN Q3H Lab 07/01/20 13:22 Completed TROPONIN Q3H Lab 07/01/20 16:00 Ordered TROPONIN Q3H Lab 07/01/20 19:00 Ordered TROPONIN Q3H Lab 07/01/20 22:00 Ordered TROPONIN Q3H Lab 07/02/20 01:00 Ordered Respiratory Therapy Assessment DAILY RT 07/01/20 13:21 Completed Transfer Order Routine Transfer 07/01/20 Ordered Medication Summary Generic Name Dose Route Start Last Admin Trade Name Freq PRN Reason Stop Dose Admin Sodium Chloride 1,000 mls @ 50 mls/hr 07/01/20 13:00 07/01/20 13:06 Sodium Chloride 0.9% 1000 Ml IV 07/31/20 12:59 50 mls/hr .Q20H BETHEL Administration Discontinued Medications Generic Name Dose Route Start Last Admin Trade Name Freq PRN Reason Stop Dose Admin Albuterol/Ipratropium 3 ml 07/01/20 12:56 07/01/20 13:00 Duoneb 0.5-3 Mg/3 Ml Neb IH 07/01/20 12:57 3 ml STAT ONE Administration Albuterol/Ipratropium Confirm 07/01/20 13:02 Duoneb 0.5-3 Mg/3 Ml Neb Administered 07/01/20 13:03 Dose 3 ml IH .STK-MED ONE Azithromycin 500 mg in 250 mls @ 250 mls/hr 07/01/20 13:49 07/01/20 15:00 Zithromax 500 Mg/ 250 Ml Nacl Premix IV 07/01/20 14:48 250 mls/hr STAT STA 250 mls/hr Administration Ceftriaxone Sodium/Dextrose 1 g in 50 mls @ 100 mls/hr 07/01/20 13:49 15:00 Rocephin 1 Gm-D5w 50 Ml Bag IV 07/01/20 14:18 Infused STAT STA Infusion Ceftriaxone Sodium/Dextrose Confirm 07/01/20 14:22 Rocephin 1 Gm-D5w 50 Ml Bag Administered 07/01/20 14:23 Dose 1 g in 50 mls @ ud IV .STK-MED ONE Azithromycin Confirm 07/01/20 14:57 Zithromax 500 Mg/ 250 Ml Nacl Premix Administered 07/01/20 14:58 Dose 500 mg in 250 mls @ ud IV .STK-MED ONE Lab/Rad Data: Laboratory Result Diagrams 07/01/20 13:22 07/01/20 13:22 Laboratory Results 07/01/20 07/01/20 07/01/20 Range/Units 13:52 13:22 13:22 WBC (4.0-10.5) K/mm3 RBC (4.1-5.4) M/mm3 Hgb (12.0-16.0) gm/dl Hct (35-47) % MCV (78-100) fl MCH (26-32) pg MCHC (32-36) g/dl RDW (11.5-14.0) % Plt Count (150-450) K/mm3 MPV (7.5-11.0) fl Gran % (36.0-66.0) % Eos # (Auto) (0-0.5) Absolute Lymphs (auto) (1.0-4.6) Absolute Monos (auto) (0.0-1.3) Lymphocytes % (24.0-44.0) % Monocytes % (0.0-12.0) % Eosinophils % (0.00-5.0) % Basophils % (0.0-0.4) % Absolute Granulocytes (1.4-6.9) Basophils # (0-0.4) Sodium 139 (137-145) mmol/L Potassium 4.1 (3.5-5.1) mmol/L Chloride 106 (98-107) mmol/L Carbon Dioxide 26 (22-30) mmol/L Anion Gap 10.0 (5-15) MEQ/L BUN 10 (7-17) mg/dL Creatinine 0.90 (0.52-1.04) mg/dL Estimated GFR > 60.0 ML/MIN Glucose 109 H (74-106) mg/dL Calcium 8.8 (8.4-10.2) mg/dL Total Bilirubin 0.60 (0.2-1.3) mg/dL AST 41 H (14-36) U/L ALT 18 (0-35) U/L Alkaline Phosphatase 96 (38-126) U/L Troponin I < 0.012 (0.000-0.034) ng/mL NT-Pro-B Natriuret Pep 176 (0-900) pg/mL Serum Total Protein 6.7 (6.3-8.2) g/dL Albumin 3.6 (3.5-5.0) g/dL SARS-CoV-2 (PCR) NEGATIVE (NEGATIVE) 07/01/20 Range/Units 13:22 WBC 22.1 H (4.0-10.5) K/mm3 RBC 4.63 (4.1-5.4) M/mm3 Hgb 12.3 (12.0-16.0) gm/dl Hct 39.4 (35-47) % MCV 85.1 (78-100) fl MCH 26.6 (26-32) pg MCHC 31.2 L (32-36) g/dl RDW 15.0 H (11.5-14.0) % Plt Count 407 (150-450) K/mm3 MPV 9.1 (7.5-11.0) fl Gran % 79.2 H (36.0-66.0) % Eos # (Auto) 0.20 (0-0.5) Absolute Lymphs (auto) 2.90 (1.0-4.6) Absolute Monos (auto) 1.48 H (0.0-1.3) Lymphocytes % 13.1 L (24.0-44.0) % Monocytes % 6.7 (0.0-12.0) % Eosinophils % 0.9 (0.00-5.0) % Basophils % 0.1 (0.0-0.4) % Absolute Granulocytes 17.51 H (1.4-6.9) Basophils # 0.03 (0-0.4) Sodium (137-145) mmol/L Potassium (3.5-5.1) mmol/L Chloride (98-107) mmol/L Carbon Dioxide (22-30) mmol/L Anion Gap (5-15) MEQ/L BUN (7-17) mg/dL Creatinine (0.52-1.04) mg/dL Estimated GFR ML/MIN Glucose (74-106) mg/dL Calcium (8.4-10.2) mg/dL Total Bilirubin (0.2-1.3) mg/dL AST (14-36) U/L ALT (0-35) U/L Alkaline Phosphatase (38-126) U/L Troponin I (0.000-0.034) ng/mL NT-Pro-B Natriuret Pep (0-900) pg/mL Serum Total Protein (6.3-8.2) g/dL Albumin (3.5-5.0) g/dL SARS-CoV-2 (PCR) (NEGATIVE) - Departure Departure Disposition: Observation Clinical Impression: Pneumonia Qualifiers: Pneumonia type: due to unspecified organism Laterality: left Lung location: lower lobe of lung Qualified Code(s): J18.9 - Pneumonia, unspecified organism COPD (chronic obstructive pulmonary disease) Qualifiers: COPD type: chronic bronchitis Chronic bronchitis type: unspecified Qualified Code(s): J42 - Unspecified chronic bronchitis Condition: Fair Critical Care Time: Yes Critical Care Time(excluding separately billable procedures): Critical 30-74 mins Instructions: Chronic Obstructive Pulmonary Disease
[2020-07-01] MEDS ORDERED: Sodium Chloride 0.9% 1000 ML 1,000 ML ONE (13:05)
[2020-07-01 13:23] LABS: Absolute Neutrophil Ct (ANC) 17.51 (1.4-6.9); BASOPHIL % 0.1 % (0.0-0.4); Basophil (Absolute #) 0.03 (0-0.4); Eosinophil % 0.9 % (0.00-5.0); Hematocrit 39.4 % (35-47); Hemoglobin 12.3 gm/dl (12.0-16.0); Lymphocytes % 13.1 % (24.0-44.0); Mean Cell Volume 85.1 fl (78-100); Mean Corpuscular Hemoglobin 26.6 pg (26-32); Mean Corpuscular Hgb Concent. 31.2 g/dl (32-36); Mean Platelet Volume 9.1 fl (7.5-11.0); Monocyte (Absolute #) 1.48 (0.0-1.3); Monocytes % 6.7 % (0.0-12.0); Neutrophil % 79.2 % (36.0-66.0); Platelet Count 407 K/mm3 (150-450); Red Blood Count 4.63 M/mm3 (4.1-5.4); White Blood Count 22.1 K/mm3 (4.0-10.5)
[2020-07-01] MEDS ORDERED: Zithromax 500 MG/ 250 ML NaCl Premix 500 MG/250 ML IVPB IV STA (13:49)
[2020-07-01] MEDS ORDERED: ROCEPHIN 1 Gm-D5w 50 ml Bag** 1 G/50 ML IVPB IV STA (13:49)
[2020-07-01 13:50] LABS: ALBUMIN 3.6 g/dL (3.5-5.0); ALKALINE PHOSPHATASE 96 U/L (38-126); BLOOD UREA NITROGEN 10 mg/dL (7-17); CHLORIDE 106 mmol/L (98-107); Calcium 8.8 mg/dL (8.4-10.2); Carbon Dioxide 26 mmol/L (22-30); EST GLOMERULAR FILTRATION RATE > 60.0 ML/MIN; Glucose 109 mg/dL (74-106); NT PRO BNP 176 pg/mL (0-900); Potassium 4.1 mmol/L (3.5-5.1); SGOT/AST 41 U/L (14-36); SGPT/ALT 18 U/L (0-35); SODIUM 139 mmol/L (137-145); Total Protein 6.7 g/dL (6.3-8.2)
[2020-07-01] MEDS ORDERED: ROCEPHIN 1 Gm-D5w 50 ml Bag** 1 G/50 ML IVPB IV ONE (14:22)
[2020-07-01] MEDS ORDERED: Zithromax 500 MG/ 250 ML NaCl Premix 500 MG/250 ML IVPB IV ONE (14:57)
[2020-07-01 17:18] LABS: INR 2.26 (0.8-3.0); PROTIME 25.7 SECONDS (9.95-12.35)
--- NOTE | 2020-07-01 17:20 | PCM.HP ---
History of Present Illness - Chief Complaint Chief Complaint: cough, shortness of breath foer 2-3 days History of Present Illness: is a 64-year-old female with significant past medical history of COPD morbid obesity started having a headache cough shortness of breath since last night which got worse today morning she called ambulance and patient was brought into the emergency room. When came to the emergency room patient was feeling little bit better after was given oxygen and nebulizer treatment. Patient denies any chest pain nausea vomiting diarrhea abdominal pain or Covid exposure. Patient also denies any fever or chills - Review of Systems Constitutional: No Fever, No Chills Eyes: No Symptoms Ears, Nose, & Throat: No Symptoms Respiratory: Cough, Orthopnea, Short Of Breath, Wheezing Cardiac: No Chest Pain, No Edema, No Syncope Abdominal/Gastrointestinal: No Abdominal Pain, No Nausea, No Vomiting, No D iarrhea Genitourinary Symptoms: No Dysuria Musculoskeletal: No Back Pain, No Neck Pain Skin: No Rash Neurological: No Dizziness, No Focal Weakness, No Sensory Changes Psychological: No Symptoms Endocrine: No Symptoms Hematologic/Lymphatic: No Symptoms Immunological/Allergic: No Symptoms Medications & Allergies Home Medications: Home Medication List Alendronate Sodium 35 mg PO WEEKLY 10/21/15 [History Confirmed 07/01/20] Furosemide 20 mg [Lasix 20 mg] 20 mg PO DAILY 05/03/16 [History Confirmed 07/01/20] Potassium Chloride 10 Meq Tab* [Klor Con 10 MEQ] 10 meq PO QAM 07/02/16 [History Confirmed 07/01/20] Gabapentin 400 mg [Neurontin 400 MG] 2 cap PO BID 11/10/17 [History Confirmed 07/01/20] Calcium Carbonate/Vitamin D3 [Calcium 600 + Vit D Caplet] 1 tab PO BID 01/17/18 [History Confirmed 07/01/20] Warfarin Sodium 3 mg [Coumadin 3 MG] 3 mg PO UD 01/17/18 [History Confirmed 07/01/20] Warfarin Sodium [Coumadin] 4 mg PO UD 01/17/18 [History Confirmed 07/01/20] Albuterol Sulfate 3 ml IH BID 07/01/20 [History Confirmed 07/01/20] Albuterol Sulfate [Albuterol Sulfate Hfa] 2 puff IH QIDPRN PRN 07/01/20 [History Confirmed 07/01/20] Amitriptyline HCl 10 mg PO HS 07/01/20 [History Confirmed 07/01/20] Atorvastatin Calcium 10 mg PO QPM 07/01/20 [History Confirmed 07/01/20] Cholecalciferol (Vitamin D3) [Vitamin D] 3,000 tab PO QAM 07/01/20 [History Confirmed 07/01/20] Duloxetine HCl 30 mg PO QAM 07/01/20 [History Confirmed 07/01/20] Fluticasone/Umeclidin/Vilanter [Trelegy Ellipta 100-62.5-25] 1 puff IH QAM 07/01/20 [History Confirmed 07/01/20] Levothyroxine Sodium 100 mcg PO QAM 07/01/20 [History Confirmed 07/01/20] Magnesium Oxide 400 mg [Mag-Ox 400] 400 mg PO QAM 07/01/20 [History Confirmed 07/01/20] PANTOPRAZOLE 40 mg Tablet [Protonix 40MG Tablet] 40 mg PO BID 07/01/20 [History Confirmed 07/01/20] Allergies/Adverse Reactions: Allergies Allergy/AdvReac Type Severity Reaction Status Date / Time Latex, Natural Rubber Allergy Intermediate Verified 07/01/20 12:54 methotrexate Allergy Intermediate Verified 07/01/20 12:54 - Past Medical History Past Medical History: Yes Neurological History: Peripheral Neuropathy ENT History: No Pertinent History Cardiac History: Hypertension Respiratory History: COPD Endocrine Medical History: Hypothyroidism Musculoskelatal History: Fibromyalgia, Osteoarthritis, Rheumatoid Arthritis GI Medical History: No Pertinent History History: No Pertinent History Pyscho-Social History: Anxiety Comment: CHRONIC BACK PAIN. DVT'S, osteopenia - Female History Are you now?: No - Past Surgical History Past Surgical History: Yes Neuro Surgical History: No Pertinent History Cardiac History: No Pertinent History Respiratory Surgery: No Pertinent History GI Surgical History: Cholecystectomy Genitourinary Surgical Hx: No Pertinent History Musculskeletal Surgical Hx: Orthopedic Surgery Female Surgical History: No Pertinent History Other Surgical History: rt shoulder/foot. back surgery. - Social History Smoking Status: Never smoker Exposure to second hand smoke: No Alcohol: None Drug Use: none - Physical Exam Vital Signs: Vital Signs - 24 hr Temp Pulse Resp BP Pulse Ox 07/01/20 16:34 97.5 F 84 118/71 97 07/01/20 16:32 84 18 97 07/01/20 15:23 97 07/01/20 15:02 84 15 118/71 98 07/01/20 14:53 87 13 127/82 99 07/01/20 13:39 90 17 129/79 98 07/01/20 13:22 92 H 20 96 07/01/20 12:36 97.5 F 99 H 21 157/96 96 General Appearance: mild distress, alert Neurologic Exam: alert, oriented x 3, cooperative, normal mood/affect, nml cerebellar function, nml station & gait, sensation nml, No motor deficits Eye Exam: PERRL/EOMI, eyes nml inspection Ears, Nose, Throat Exam: normal ENT inspection, TMs normal, pharynx normal, moist mucous membranes Neck Exam: normal inspection, non-tender, supple, full range of motion Respiratory Exam: diminished breath sounds, crackles/rales, rhonchi, No respiratory distress Cardiovascular Exam: regular rate/rhythm, normal heart sounds, normal peripheral pulses Gastrointestinal/Abdomen Exam: soft, normal bowel sounds, No tenderness, No mass Back Exam: normal inspection, normal range of motion, No CVA tenderness, No vertebral tenderness Extremity Exam: normal inspection, normal range of motion, pelvis stable Skin Exam: normal color, warm, dry, No rash Lymphatic Exam: No adenopathy Results - Labs Lab/Micro Results: Lab Results-Last 24 Hours 07/01/20 07/01/20 07/01/20 Range/Units 13:22 13:22 13:22 WBC 22.1 H (4.0-10.5) K/mm3 RBC 4.63 (4.1-5.4) M/mm3 Hgb 12.3 (12.0-16.0) gm/dl Hct 39.4 (35-47) % MCV 85.1 (78-100) fl MCH 26.6 (26-32) pg MCHC 31.2 L (32-36) g/dl RDW 15.0 H (11.5-14.0) % Plt Count 407 (150-450) K/mm3 MPV 9.1 (7.5-11.0) fl Gran % 79.2 H (36.0-66.0) % Eos # (Auto) 0.20 (0-0.5) Absolute Lymphs (auto) 2.90 (1.0-4.6) Absolute Monos (auto) 1.48 H (0.0-1.3) Lymphocytes % 13.1 L (24.0-44.0) % Monocytes % 6.7 (0.0-12.0) % Eosinophils % 0.9 (0.00-5.0) % Basophils % 0.1 (0.0-0.4) % Absolute Granulocytes 17.51 H (1.4-6.9) Basophils # 0.03 (0-0.4) Sodium 139 (137-145) mmol/L Potassium 4.1 (3.5-5.1) mmol/L Chloride 106 (98-107) mmol/L Carbon Dioxide 26 (22-30) mmol/L Anion Gap 10.0 (5-15) MEQ/L BUN 10 (7-17) mg/dL Creatinine 0.90 (0.52-1.04) mg/dL Estimated GFR > 60.0 ML/MIN Glucose 109 H (74-106) mg/dL Calcium 8.8 (8.4-10.2) mg/dL Total Bilirubin 0.60 (0.2-1.3) mg/dL AST 41 H (14-36) U/L ALT 18 (0-35) U/L Alkaline Phosphatase 96 (38-126) U/L Troponin I < 0.012 (0.000-0.034) ng/mL NT-Pro-B Natriuret Pep 176 (0-900) pg/mL Serum Total Protein 6.7 (6.3-8.2) g/dL Albumin 3.6 (3.5-5.0) g/dL SARS-CoV-2 (PCR) (NEGATIVE) 07/01/20 Range/Units 13:52 WBC (4.0-10.5) K/mm3 RBC (4.1-5.4) M/mm3 Hgb (12.0-16.0) gm/dl Hct (35-47) % MCV (78-100) fl MCH (26-32) pg MCHC (32-36) g/dl RDW (11.5-14.0) % Plt Count (150-450) K/mm3 MPV (7.5-11.0) fl Gran % (36.0-66.0) % Eos # (Auto) (0-0.5) Absolute Lymphs (auto) (1.0-4.6) Absolute Monos (auto) (0.0-1.3) Lymphocytes % (24.0-44.0) % Monocytes % (0.0-12.0) % Eosinophils % (0.00-5.0) % Basophils % (0.0-0.4) % Absolute Granulocytes (1.4-6.9) Basophils # (0-0.4) Sodium (137-145) mmol/L Potassium (3.5-5.1) mmol/L Chloride (98-107) mmol/L Carbon Dioxide (22-30) mmol/L Anion Gap (5-15) MEQ/L BUN (7-17) mg/dL Creatinine (0.52-1.04) mg/dL Estimated GFR ML/MIN Glucose (74-106) mg/dL Calcium (8.4-10.2) mg/dL Total Bilirubin (0.2-1.3) mg/dL AST (14-36) U/L ALT (0-35) U/L Alkaline Phosphatase (38-126) U/L Troponin I (0.000-0.034) ng/mL NT-Pro-B Natriuret Pep (0-900) pg/mL Serum Total Protein (6.3-8.2) g/dL Albumin (3.5-5.0) g/dL SARS-CoV-2 (PCR) NEGATIVE (NEGATIVE) - Radiology Impressions Radiology Exams & Impressions: Radiology Procedures Category Date Time Status CHEST 1 VIEW (PORTABLE) Stat Exams 07/01/20 12:57 Taken - Other Procedures and Tests Respiratory Therapy 07/01/20 15:54 Oxygen Nasal Cannula 2 lpm 07/01/20 16:06 Peak Expiratory Flow Rate ONCE 07/01/20 16:07 Respiratory Therapy Assessment DAILY 07/01/20 16:59 RT Screen per Nursing Assess ONCE Assessment/Plan (1) Pneumonia Current Visit: Yes Status: Acute Qualifiers: Pneumonia type: due to unspecified organism Laterality: left Lung location: lower lobe of lung Qualified Code(s): J18.9 - Pneumonia, unspecified organism Assessment & Plan: Chief Complaint Diagnosis left lower lobe pneumonia Allergies Allergy/AdvReac Type Severity Reaction Status Date / Time Latex, Natural Rubber Allergy Intermediate Verified 07/01/20 12:54 methotrexate Allergy Intermediate Verified 07/01/20 12:54 Vital Signs (Last 24 hours) Temp Pulse Resp BP Pulse Ox 07/01/20 16:34 97.5 F 84 118/71 97 07/01/20 16:32 84 18 97 07/01/20 15:23 97 07/01/20 15:02 84 15 118/71 98 07/01/20 14:53 87 13 127/82 99 07/01/20 13:39 90 17 129/79 98 07/01/20 13:22 92 H 20 96 07/01/20 12:36 97.5 F 99 H 21 157/96 96 Home Medications Medication Instructions Recorded Confirmed Last Taken Type Albuterol Sulfate 3 ml IH BID 07/01/20 07/01/20 07/01/20 History Albuterol Sulfate [Albuterol 2 puff IH QIDPRN PRN 07/01/20 07/01/20 07/01/20 History Sulfate Hfa] Amitriptyline HCl 10 mg PO HS 07/01/20 07/01/20 06/30/20 History Atorvastatin Calcium 10 mg PO QPM 07/01/20 07/01/20 06/30/20 History Cholecalciferol (Vitamin D3) 3,000 tab PO QAM 07/01/20 07/01/20 07/01/20 History [Vitamin D] Duloxetine HCl 30 mg PO QAM 07/01/20 07/01/20 06/30/20 History Fluticasone/Umeclidin/Vilanter 1 puff IH QAM 07/01/20 07/01/20 06/30/20 History [Trelegy Ellipta 100-62.5-25] Levothyroxine Sodium 100 mcg PO QAM 07/01/20 07/01/20 07/01/20 History Magnesium Oxide 400 mg [Mag-Ox 400 mg PO QAM 07/01/20 07/01/20 07/01/20 History 400] PANTOPRAZOLE 40 mg Tablet 40 mg PO BID 07/01/20 07/01/20 07/01/20 History [Protonix 40MG Tablet] Current Medications Generic Name Dose Route Start Last Admin Trade Name Freq PRN Reason Stop Dose Admin Acetaminophen 1,000 mg 07/01/20 17:17 Tylenol Extra Strength 500 Mg PO 07/31/20 17:16 Q4H PRN PRN HEADACHE Albuterol/Ipratropium 3 ml 07/01/20 19:00 Duoneb 0.5-3 Mg/3 Ml Neb IH 07/31/20 18:59 Q6HRT BETHEL Azithromycin 500 mg in 250 mls @ 250 mls/hr 07/02/20 10:00 Zithromax 500 Mg/ 250 Ml Nacl Premix IV 08/01/20 09:59 Q24H10 BETHEL Sodium Chloride 1,000 mls @ 100 mls/hr 07/01/20 15:54 Sodium Chloride 0.9% 1000 Ml IV 07/31/20 15:53 .Q10H BETHEL Ceftriaxone Sodium/Dextrose 1 g in 50 mls @ 100 mls/hr 07/02/20 10:00 Rocephin 1 Gm-D5w 50 Ml Bag IV 08/01/20 09:59 Q24H10 BETHEL Discontinued Medications Generic Name Dose Route Start Last Admin Trade Name Freq PRN Reason Stop Dose Admin Albuterol/Ipratropium 3 ml 07/01/20 12:56 07/01/20 13:00 Duoneb 0.5-3 Mg/3 Ml Neb IH 07/01/20 12:57 3 ml STAT ONE Administration Albuterol/Ipratropium Confirm 07/01/20 13:02 Duoneb 0.5-3 Mg/3 Ml Neb Administered 07/01/20 13:03 Dose 3 ml IH .STK-MED ONE Sodium Chloride 1,000 mls @ 50 mls/hr 07/01/20 13:00 07/01/20 13:06 Sodium Chloride 0.9% 1000 Ml IV 07/31/20 12:59 50 mls/hr .Q20H BETHEL Administration Azithromycin 500 mg in 250 mls @ 250 mls/hr 07/01/20 13:49 07/01/20 15:00 Zithromax 500 Mg/ 250 Ml Nacl Premix IV 07/01/20 14:48 250 mls/hr STAT STA 250 mls/hr Administration Ceftriaxone Sodium/Dextrose 1 g in 50 mls @ 100 mls/hr 07/01/20 13:49 07/01/20 15:00 Rocephin 1 Gm-D5w 50 Ml Bag IV 07/01/20 14:18 Infused STAT STA Infusion Ceftriaxone Sodium/Dextrose Confirm 07/01/20 14:22 Rocephin 1 Gm-D5w 50 Ml Bag Administered 07/01/20 14:23 Dose 1 g in 50 mls @ ud IV .STK-MED ONE Azithromycin Confirm 07/01/20 14:57 Zithromax 500 Mg/ 250 Ml Nacl Premix Administered 07/01/20 14:58 Dose 500 mg in 250 mls @ ud IV .STK-MED ONE Sodium Chloride Confirm 07/01/20 13:05 Sodium Chloride 0.9% 1000 Ml Administered 07/01/20 13:06 Dose 1,000 mls @ ud .ROUTE .STK-MED ONE Intake & Output (Last 24 hours) 06/29/20 06/30/20 07/01/20 07/02/20 11:59 11:59 11:59 11:59 Weight 117.934 kg Laboratory Results (Last 24 hours) 07/01/20 07/01/20 07/01/20 13:52 13:22 13:22 WBC RBC Hgb Hct MCV MCH MCHC RDW Plt Count MPV Gran % Eos # (Auto) Absolute Lymphs (auto) Absolute Monos (auto) Lymphocytes % Monocytes % Eosinophils % Basophils % Absolute Granulocytes Basophils # Sodium 139 Potassium 4.1 Chloride 106 Carbon Dioxide 26 Anion Gap 10.0 BUN 10 Creatinine 0.90 Estimated GFR > 60.0 Glucose 109 H Calcium 8.8 Total Bilirubin 0.60 AST 41 H ALT 18 Alkaline Phosphatase 96 Troponin I < 0.012 NT-Pro-B Natriuret Pep 176 Serum Total Protein 6.7 Albumin 3.6 SARS-CoV-2 (PCR) NEGATIVE 07/01/20 13:22 WBC 22.1 H RBC 4.63 Hgb 12.3 Hct 39.4 MCV 85.1 MCH 26.6 MCHC 31.2 L RDW 15.0 H Plt Count 407 MPV 9.1 Gran % 79.2 H Eos # (Auto) 0.20 Absolute Lymphs (auto) 2.90 Absolute Monos (auto) 1.48 H Lymphocytes % 13.1 L Monocytes % 6.7 Eosinophils % 0.9 Basophils % 0.1 Absolute Granulocytes 17.51 H Basophils # 0.03 Sodium Potassium Chloride Carbon Dioxide Anion Gap BUN Creatinine Estimated GFR Glucose Calcium Total Bilirubin AST ALT Alkaline Phosphatase Troponin I NT-Pro-B Natriuret Pep Serum Total Protein Albumin SARS-CoV-2 (PCR) Orders (Last 24 hours) Category Date Time Status Up Ad Patito ROUTINE Activity 07/01/20 15:54 Active Medical Management Trainer STAT Care 07/01/20 12:58 Completed Code Status Order ROUTINE Care 07/01/20 15:54 Active EKG-ER Only STAT Care 07/01/20 12:58 Completed IV Care Q6H Care 07/01/20 15:[address] in Observation ROUTINE Care 07/01/20 15:54 Active Mnia Lockwood ROUTINE Care 07/01/20 15:54 Active Telemetry q6h Care 07/01/20 15:58 Active Predictive Maintenance Technician/Discharge Plan ROUTINE Cons 07/01/20 16:59 Active Consistent Carbohydrate Diet 1800 Calorie Diet 07/01/20 Dinner Active CHEST 1 VIEW (PORTABLE) Stat Exams 07/01/20 12:57 Taken CBC W DIFF AM.LAB Lab 07/02/20 04:00 Ordered CBC W DIFF Stat Lab 07/01/20 13:22 Completed CMP AM.LAB Lab 07/02/20 04:00 Ordered CMP Stat Lab 07/01/20 13:22 Completed NT PRO BNP Stat Lab 07/01/20 13:22 Completed PT INR [PROTIME WITH INR] Stat Lab 07/01/20 14:22 Received TROPONIN Q3H Lab 07/01/20 13:22 Completed TROPONIN Q3H Lab 07/01/20 16:00 Ordered TROPONIN Q3H Lab 07/01/20 19:00 Ordered TROPONIN Q3H Lab 07/01/20 22:00 Ordered TROPONIN Q3H Lab 07/02/20 01:00 Ordered Acetaminophen 500 mg [Tylenol Extra Strength 500 mg* Med 07/01/20 17:17 Ordered ] 1,000 mg PO Q4H PRN PRN Albuterol/Ipratropium 3ml Neb* [DUONEB 0.5-3 MG/3 ml Med 07/01/20 13:02 Discontinued Neb] 3 ml IH .STK-MED ONE Albuterol/Ipratropium 3ml Neb* [DUONEB 0.5-3 MG/3 ml Med 07/01/20 19:00 Active Neb] 3 ml IH Q6HRT Albuterol/Ipratropium 3ml Neb* [DUONEB 0.5-3 MG/3 ml Med 07/01/20 12:56 Discontinued Neb] 3 ml IH STAT ONE Azithromycin 500 mg/250 ml [Zithromax 500 MG/ 250 ML Med 07/02/20 10:00 Active NaCl Premix] 500 mg in 250 ml IV Q24H10 Azithromycin 500 mg/250 ml [Zithromax 500 MG/ 250 ML Med 07/01/20 13:49 Discon tinued NaCl Premix] 500 mg in 250 ml IV STAT Azithromycin 500 mg/250 ml [Zithromax 500 MG/ 250 ML Med 07/01/20 14:57 Discontinued NaCl Premix] 500 mg in 250 ml IV UD Ceftriaxone 1 GM/50 ML PREMIX* [ROCEPHIN 1 Gm-D5w 50 ml Med 07/02/20 10:00 Active Bag] 1 g in 50 ml IV Q24H10 Ceftriaxone 1 GM/50 ML PREMIX* [ROCEPHIN 1 Gm-D5w 50 ml Med 07/01/20 13:49 Discontinued Bag] 1 g in 50 ml IV STAT Ceftriaxone 1 GM/50 ML PREMIX* [ROCEPHIN 1 Gm-D5w 50 ml Med 07/01/20 14:22 Discontinued Bag] 1 g in 50 ml IV UD NaCl 0.9% 1000 ml [Sodium Chloride 0.9% 1000 ML] 1,000 Med 07/01/20 13:05 Discontinued ml .ROUTE UD NaCl 0.9% 1000 ml [Sodium Chloride 0.9% 1000 ML] 1,000 Med 07/01/20 15:54 Active ml IV 100 mls/hr NaCl 0.9% 1000 ml [Sodium Chloride 0.9% 1000 ML] 1,000 Med 07/01/20 13:00 Discontinued ml IV 50 mls/hr Oxygen Nasal Cannula 2 lpm RT 07/01/20 15:54 Active Peak Expiratory Flow Rate ONCE RT 07/01/20 16:06 Active Pulse Oximetry .spot check RT 07/01/20 16:07 Active RT Screen per Nursing Assess ONCE RT 07/01/20 16:59 Active Respiratory Therapy Assessment DAILY RT 07/01/20 13:21 Completed Respiratory Therapy Assessment DAILY RT 07/01/20 16:07 Active Transfer Order Routine Transfer 07/01/20 Completed Code(s): J18.9 - PNEUMONIA, UNSPECIFIED ORGANISM (2) COPD (chronic obstructive pulmonary disease) Current Visit: Yes Status: Chronic Qualifiers: COPD type: chronic bronchitis Chronic bronchitis type: unspecified Qualified Code(s): J42 - Unspecified chronic bronchitis
[2020-07-01] MEDS ORDERED: NON-FORMULARY ITEM (Alendronate Sodium [Alendronate Sodium] 35 MG) PO SCH (17:30)
[2020-07-01] MEDS: DUONEB 0.5-3 MG/3 ml Neb IH SCH (17:37)
[2020-07-01] MEDS: TYLENOL EXTRA STRENGTH 500 MG PO PRN ×2 (17:42→21:30)
--- NOTE | 2020-07-01 18:36 | XRAY ---
Indication: Cough and short of breath. Comparison: November 29, 2019. Portable chest again demonstrates normal heart and lungs with a few incidental calcified granulomas and right hemidiaphragm elevation. Bony thorax intact. No new/acute findings.
[2020-07-01] MEDS: Calcium 500MG W/Vit D Tablet PO SCH (21:23)
[2020-07-01] MEDS: Zocor 10MG PO SCH (21:24)
[2020-07-01] MEDS: Protonix 40MG Tablet PO SCH (21:24)
[2020-07-01] MEDS: Neurontin 400 MG PO SCH (21:24)
[2020-07-01] MEDS: ELAVIL 10 MG PO SCH (21:24)
[2020-07-01] MEDS ORDERED: NON-FORMULARY ITEM (Calcium Carbonate/Vitamin D3 [Calcium 600 + Vit D Caplet] 1 TAB) PO SCH (22:00)
[2020-07-01] MEDS ORDERED: NON-FORMULARY ITEM (Atorvastatin Calcium [Atorvastatin Calcium] 10 MG) PO SCH (22:00)
[2020-07-02] MEDS: DUONEB 0.5-3 MG/3 ml Neb IH SCH ×4 (00:35→18:53)
[2020-07-02] MEDS: Sodium Chloride 0.9% 1000 ML 1,000 ML IV SCH ×3 (00:36→22:59)
[2020-07-02 05:49] LABS: Absolute Neutrophil Ct (ANC) 8.14 (1.4-6.9); BASOPHIL % 0.2 % (0.0-0.4); Basophil (Absolute #) 0.03 (0-0.4); Eosinophil % 3.7 % (0.00-5.0); Eosinophil (Absolute #) 0.46 (0-0.5); Hematocrit 37.8 % (35-47); Hemoglobin 11.5 gm/dl (12.0-16.0); Lymphocytes % 22.2 % (24.0-44.0); Mean Cell Volume 87.3 fl (78-100); Mean Corpuscular Hemoglobin 26.6 pg (26-32); Mean Corpuscular Hgb Concent. 30.4 g/dl (32-36); Mean Platelet Volume 9.2 fl (7.5-11.0); Monocyte (Absolute #) 1.16 (0.0-1.3); Monocytes % 9.2 % (0.0-12.0); Neutrophil % 64.7 % (36.0-66.0); Platelet Count 363 K/mm3 (150-450); Red Blood Count 4.33 M/mm3 (4.1-5.4); Red Cell Distribution Width 15.3 % (11.5-14.0); White Blood Count 12.6 K/mm3 (4.0-10.5)
[2020-07-02] MEDS ORDERED: Fosamax 70 MG PO SCH (06:00)
[2020-07-02] MEDS: TYLENOL EXTRA STRENGTH 500 MG PO PRN (06:07)
[2020-07-02] MEDS: SYNTHROID 100 MCG PO SCH (06:07)
[2020-07-02 06:15] LABS: ALBUMIN 3.1 g/dL (3.5-5.0); ALKALINE PHOSPHATASE 78 U/L (38-126); ANION GAP 6.9 MEQ/L (5-15); BLOOD UREA NITROGEN 10 mg/dL (7-17); CHLORIDE 109 mmol/L (98-107); Calcium 8.5 mg/dL (8.4-10.2); Carbon Dioxide 27 mmol/L (22-30); Creatinine 1 0.86 mg/dL (0.52-1.04); EST GLOMERULAR FILTRATION RATE > 60.0 ML/MIN; Glucose 98 mg/dL (74-106); Potassium 4.1 mmol/L (3.5-5.1); SGOT/AST 29 U/L (14-36); SGPT/ALT 15 U/L (0-35); SODIUM 138 mmol/L (137-145); Total Protein 6.1 g/dL (6.3-8.2)
[2020-07-02] MEDS: ROCEPHIN 1 Gm-D5w 50 ml Bag** 1 G/50 ML IVPB IV SCH (09:20)
[2020-07-02] MEDS: MAG-OX 400 PO SCH (09:20)
[2020-07-02] MEDS: Calcium 500MG W/Vit D Tablet PO SCH ×2 (09:20→21:12)
[2020-07-02] MEDS: Neurontin 400 MG PO SCH ×2 (09:21→21:12)
[2020-07-02] MEDS: LASIX 20 MG PO SCH (09:21)
[2020-07-02] MEDS: VITAMIN D PO SCH (09:21)
[2020-07-02] MEDS: Klor Con 10 MEQ PO SCH (09:21)
[2020-07-02] MEDS: Cymbalta 30 MG Capsule PO SCH (09:21)
[2020-07-02] MEDS: Protonix 40MG Tablet PO SCH ×2 (09:21→21:12)
--- NOTE | 2020-07-02 09:53 | PCM.NOTE ---
Date and Time: 07/02/20 0950 Subjective Assessment: doing better, still short of breath and wheezing - Review of Systems Constitutional: No Fever, No Chills Eyes: No Symptoms Ears, Nose, & Throat: No Symptoms Respiratory: Orthopnea, Short Of Breath, Wheezing, No Cough Cardiac: No Chest Pain, No Edema, No Syncope Abdominal/Gastrointestinal: No Abdominal Pain, No Nausea, No Vomiting, No Diarrh ea Genitourinary Symptoms: No Dysuria Musculoskeletal: No Back Pain, No Neck Pain Skin: No Rash Neurological: No Dizziness, No Focal Weakness, No Sensory Changes Psychological: No Symptoms Endocrine: No Symptoms Hematologic/Lymphatic: No Symptoms Immunological/Allergic: No Symptoms Objective Exam General Appearance: no apparent distress, alert Neurologic Exam: alert, oriented x 3, cooperative, normal mood/affect, nml cerebellar function, sensation nml, No motor deficits Skin Exam: normal color, warm, dry Eye Exam: PERRL, EOMI, eyes nml inspection Ears, Nose, Throat Exam: normal ENT inspection, pharynx normal, moist mucous membranes Neck Exam: normal inspection, non-tender, supple, full range of motion Respiratory Exam: crackles/rales, rhonchi, wheezing, No respiratory distress Cardiovascular Exam: regular rate/rhythm, normal heart sounds Gastrointestinal/Abdomen Exam: soft, No tenderness, No mass Extremity Exam: normal inspection, normal range of motion Back Exam: normal inspection, normal range of motion, No CVA tenderness, No vertebral tenderness Pelvic Exam: deferred Rectal Exam: deferred OBJECTIVE DATA Vital Signs: Vital Signs - 24 hr Temp Pulse Resp BP Pulse Ox 07/02/20 07:41 96.4 F 84 18 120/67 97 07/02/20 07:13 88 18 98 07/02/20 04:00 98.4 F 87 18 149/75 98 07/02/20 00:35 87 13 99 07/02/20 00:00 98.2 F 87 13 144/72 99 07/01/20 20:00 98.7 F 84 18 130/64 96 07/01/20 19:09 96 07/01/20 17:37 88 20 95 07/01/20 16:34 97.5 F 84 118/71 97 07/01/20 16:32 84 18 97 07/01/20 15:23 97 07/01/20 15:02 84 15 118/71 98 07/01/20 14:53 87 13 127/82 99 07/01/20 13:39 90 17 129/79 98 07/01/20 13:22 92 H 20 96 07/01/20 12:36 97.5 F 99 H 21 157/96 96 Oxygen-Last 24 hours Oxygen Flowrate (L/min)-RT 2 Pain Assessment - Last Documented Pain Intensity 5 Pain Scale Used 0-10 Pain Scale Intake and Output: Intake & Output 06/29/20 06/30/20 07/01/20 07/02/20 11:59 11:59 11:59 11:59 Intake Total 2135 Balance 2135 Weight 117.934 kg Lab Results: Lab Results-Last 24 Hours 07/01/20 07/01/20 07/01/20 Range/Units 13:22 13:22 13:22 WBC 22.1 H (4.0-10.5) K/mm3 RBC 4.63 (4.1-5.4) M/mm3 Hgb 12.3 (12.0-16.0) gm/dl Hct 39.4 (35-47) % MCV 85.1 (78-100) fl MCH 26.6 (26-32) pg MCHC 31.2 L (32-36) g/dl RDW 15.0 H (11.5-14.0) % Plt Count 407 (150-450) K/mm3 MPV 9.1 (7.5-11.0) fl Gran % 79.2 H (36.0-66.0) % Eos # (Auto) 0.20 (0-0.5) Absolute Lymphs (auto) 2.90 (1.0-4.6) Absolute Monos (auto) 1.48 H (0.0-1.3) Lymphocytes % 13.1 L (24.0-44.0) % Monocytes % 6.7 (0.0-12.0) % Eosinophils % 0.9 (0.00-5.0) % Basophils % 0.1 (0.0-0.4) % Absolute Granulocytes 17.51 H (1.4-6.9) Basophils # 0.03 (0-0.4) PT (9.95-12.35) SECONDS INR (0.8-3.0) Sodium 139 (137-145) mmol/L Potassium 4.1 (3.5-5.1) mmol/L Chloride 106 (98-107) mmol/L Carbon Dioxide 26 (22-30) mmol/L Anion Gap 10.0 (5-15) MEQ/L BUN 10 (7-17) mg/dL Creatinine 0.90 (0.52-1.04) mg/dL Estimated GFR > 60.0 ML/MIN Glucose 109 H (74-106) mg/dL Calcium 8.8 (8.4-10.2) mg/dL Total Bilirubin 0.60 (0.2-1.3) mg/dL AST 41 H (14-36) U/L ALT 18 (0-35) U/L Alkaline Phosphatase 96 (38-126) U/L Troponin I < 0.012 (0.000-0.034) ng/mL NT-Pro-B Natriuret Pep 176 (0-900) pg/mL Serum Total Protein 6.7 (6.3-8.2) g/dL Albumin 3.6 (3.5-5.0) g/dL SARS-CoV-2 (PCR) (NEGATIVE) 07/01/20 07/01/20 07/01/20 Range/Units 13:52 14:22 16:00 WBC (4.0-10.5) K/mm3 RBC (4.1-5.4) M/mm3 Hgb (12.0-16.0) gm/dl Hct (35-47) % MCV (78-100) fl MCH (26-32) pg MCHC (32-36) g/dl RDW (11.5-14.0) % Plt Count (150-450) K/mm3 MPV (7.5-11.0) fl Gran % (36.0-66.0) % Eos # (Auto) (0-0.5) Absolute Lymphs (auto) (1.0-4.6) Absolute Monos (auto) (0.0-1.3) Lymphocytes % (24.0-44.0) % Monocytes % (0.0-12.0) % Eosinophils % (0.00-5.0) % Basophils % (0.0-0.4) % Absolute Granulocytes (1.4-6.9) Basophils # (0-0.4) PT 25.7 H (9.95-12.35) SECONDS INR 2.26 (0.8-3.0) Sodium (137-145) mmol/L Potassium (3.5-5.1) mmol/L Chloride (98-107) mmol/L Carbon Dioxide (22-30) mmol/L Anion Gap (5-15) MEQ/L BUN (7-17) mg/dL Creatinine (0.52-1.04) mg/dL Estimated GFR ML/MIN Glucose (74-106) mg/dL Calcium (8.4-10.2) mg/dL Total Bilirubin (0.2-1.3) mg/dL AST (14-36) U/L ALT (0-35) U/L Alkaline Phosphatase (38-126) U/L Troponin I < 0.012 (0.000-0.034) ng/mL NT-Pro-B Natriuret Pep (0-900) pg/mL Serum Total Protein (6.3-8.2) g/dL Albumin (3.5-5.0) g/dL SARS-CoV-2 (PCR) NEGATIVE (NEGATIVE) 07/01/20 07/02/20 07/02/20 Range/Units 19:00 05:30 05:30 WBC 12.6 H (4.0-10.5) K/mm3 RBC 4.33 (4.1-5.4) M/mm3 Hgb 11.5 L (12.0-16.0) gm/dl Hct 37.8 (35-47) % MCV 87.3 (78-100) fl MCH 26.6 (26-32) pg MCHC 30.4 L (32-36) g/dl RDW 15.3 H (11.5-14.0) % Plt Count 363 (150-450) K/mm3 MPV 9.2 (7.5-11.0) fl Gran % 64.7 (36.0-66.0) % Eos # (Auto) 0.46 (0-0.5) Absolute Lymphs (auto) 2.80 (1.0-4.6) Absolute Monos (auto) 1.16 (0.0-1.3) Lymphocytes % 22.2 L (24.0-44.0) % Monocytes % 9.2 (0.0-12.0) % Eosinophils % 3.7 (0.00-5.0) % Basophils % 0.2 (0.0-0.4) % Absolute Granulocytes 8.14 H (1.4-6.9) Basophils # 0.03 (0-0.4) PT (9.95-12.35) SECONDS INR (0.8-3.0) Sodium 138 (137-145) mmol/L Potassium 4.1 (3.5-5.1) mmol/L Chloride 109 H (98-107) mmol/L Carbon Dioxide 27 (22-30) mmol/L Anion Gap 6.9 (5-15) MEQ/L BUN 10 (7-17) mg/dL Creatinine 0.86 (0.52-1.04) mg/dL Estimated GFR > 60.0 ML/MIN Glucose 98 (74-106) mg/dL Calcium 8.5 (8.4-10.2) mg/dL Total Bilirubin 0.40 (0.2-1.3) mg/dL AST 29 (14-36) U/L ALT 15 (0-35) U/L Alkaline Phosphatase 78 (38-126) U/L Troponin I < 0.012 (0.000-0.034) ng/mL NT-Pro-B Natriuret Pep (0-900) pg/mL Serum Total Protein 6.1 L (6.3-8.2) g/dL Albumin 3.1 L (3.5-5.0) g/dL SARS-CoV-2 (PCR) (NEGATIVE) Radiology Exams: Radiology Procedures Category Date Time Status CHEST 1 VIEW (PORTABLE) Stat Exams 07/01/20 12:57 Completed Assessment/Plan (1) Pneumonia Current Visit: Yes Status: Acute Qualifiers: Pneumonia type: due to unspecified organism Laterality: left Lung location: lower lobe of lung Qualified Code(s): J18.9 - Pneumonia, unspecified organism Assessment & Plan: Chief Complaint Diagnosis cough, shortness of breath foer 2-3 days Allergies Allergy/AdvReac Type Severity Reaction Status Date / Time Latex, Natural Rubber Allergy Intermediate Verified 07/01/20 12:54 methotrexate Allergy Intermediate Verified 07/01/20 12:54 Vital Signs (Last 24 hours) Temp Pulse Resp BP Pulse Ox 07/02/20 07:41 96.4 F 84 18 120/67 97 07/02/20 07:13 88 18 98 07/02/20 04:00 98.4 F 87 18 149/75 98 07/02/20 00:35 87 13 99 07/02/20 00:00 98.2 F 87 13 144/72 99 07/01/20 20:00 98.7 F 84 18 130/64 96 07/01/20 19:09 96 07/01/20 17:37 88 20 95 07/01/20 16:34 97.5 F 84 118/71 97 07/01/20 16:32 84 18 97 07/01/20 15:23 97 07/01/20 15:02 84 15 118/71 98 07/01/20 14:53 87 13 127/82 99 07/01/20 13:39 90 17 129/79 98 07/01/20 13:22 92 H 20 96 07/01/20 12:36 97.5 F 99 H 21 157/96 96 Home Medications Medication Instructions Recorded Confirmed Last Taken Type Albuterol Sulfate 3 ml IH BID 07/01/20 07/01/20 07/01/20 History Albuterol Sulfate [Albuterol 2 puff IH QIDPRN PRN 07/01/20 07/01/20 07/01/20 History Sulfate Hfa] Amitriptyline HCl 10 mg PO HS 07/01/20 07/01/20 06/30/20 History Atorvastatin Calcium 10 mg PO QPM 07/01/20 07/01/20 06/30/20 History Cholecalciferol (Vitamin D3) 3,000 tab PO QAM 07/01/20 07/01/20 07/01/20 History [Vitamin D] Duloxetine HCl 30 mg PO QAM 07/01/20 07/01/20 06/30/20 History Fluticasone/Umeclidin/Vilanter 1 puff IH QAM 07/01/20 07/01/20 06/30/20 History [Trelegy Ellipta 100-62.5-25] Levothyroxine Sodium 100 mcg PO QAM 07/01/20 07/01/20 07/01/20 History Magnesium Oxide 400 mg [Mag-Ox 400 mg PO QAM 07/01/20 07/01/20 07/01/20 History 400] PANTOPRAZOLE 40 mg Tablet 40 mg PO BID 07/01/20 07/01/20 07/01/20 History [Protonix 40MG Tablet] Current Medications Generic Name Dose Route Start Last Admin Trade Name Freq PRN Reason Stop Dose Admin Acetaminophen 1,000 mg 07/01/20 17:17 07/02/20 06:07 Tylenol Extra Strength 500 Mg PO 07/31/20 17:16 1,000 mg Q4H PRN PRN Administration HEADACHE Albuterol/Ipratropium 3 ml 07/01/20 19:00 07/02/20 07:08 Duoneb 0.5-3 Mg/3 Ml Neb IH 07/31/20 18:59 3 ml Q6HRT BETHEL Administration Alendronate Sodium 35 mg 07/02/20 06:00 07/02/20 06:24 Fosamax 70 Mg PO 08/01/20 05:59 35 mg Q7D@0600 BETHEL Administration Amitriptyline HCl 10 mg 07/01/20 22:00 07/01/20 21:24 Elavil 10 Mg PO 07/31/20 21:59 10 mg HS BETHEL Administration Calcium Carbonate 1 tab 07/01/20 22:00 07/02/20 09:20 Calcium 500mg W/Vit D Tablet PO 07/31/20 21:59 1 tab BID BETHEL Administration Cholecalciferol 3,000 unit 07/02/20 10:00 07/02/20 09:21 Vitamin D PO 08/01/20 09:59 3,000 unit QAM BETHEL Administration Duloxetine HCl 30 mg 07/02/20 10:00 07/02/20 09:21 Cymbalta 30 Mg Capsule PO 08/01/20 09:59 30 mg QAM BETHEL Administration Furosemide 20 mg 07/02/20 10:00 07/02/20 09:21 Lasix 20 Mg PO 08/01/20 09:59 20 mg DAILY BETHEL Administration Gabapentin 800 mg 07/01/20 22:00 07/02/20 09:21 Neurontin 400 Mg PO 07/31/20 21:59 800 mg BID BETHEL Administration Azithromycin 500 mg in 250 mls @ 250 mls/hr 07/02/20 10:00 Zithromax 500 Mg/ 250 Ml Nacl Premix IV 08/01/20 09:59 Q24H10 BETHEL Sodium Chloride 1,000 mls @ 100 mls/hr 07/01/20 15:54 07/02/20 00:36 Sodium Chloride 0.9% 1000 Ml IV 07/31/20 15:53 100 mls/hr .Q10H BETHEL Administration Ceftriaxone Sodium/Dextrose 1 g in 50 mls @ 100 mls/hr 07/02/20 10:00 07/02/20 09:20 Rocephin 1 Gm-D5w 50 Ml Bag IV 08/01/20 09:59 100 mls/hr Q24H10 BETHEL Administration Levothyroxine Sodium 100 mcg 07/02/20 06:00 07/02/20 06:07 Synthroid 100 Mcg PO 08/01/20 05:59 100 mcg QAM@0600 BETHEL Administration Magnesium Oxide 400 mg 07/02/20 10:00 07/02/20 09:20 Mag-Ox 400 PO 08/01/20 09:59 400 mg QAM BETHEL Administration Pantoprazole Sodium 40 mg 07/01/20 22:00 07/02/20 09:21 Protonix 40mg Tablet PO 07/31/20 21:59 40 mg BID BETHEL Administration Patient Own Med ( 0 each 07/02/20 10:00 Trelog) 08/01/20 09:59 QAM BETHEL Potassium Chloride 10 meq 07/02/20 10:00 07/02/20 09:21 Klor Con 10 Meq PO 08/01/20 09:59 10 meq QAM BETHEL Administration Simvastatin 10 mg 07/01/20 22:00 07/01/20 21:24 Zocor 10mg PO 07/31/20 21:59 10 mg QPM BETHEL Administration Warfarin Sodium 3 mg 07/02/20 18:00 Coumadin 3 Mg PO 08/01/20 17:59 DAILY@1800 BETHEL Warfarin Sodium 1 mg 07/02/20 18:00 Coumadin 1 Mg PO 08/01/20 17:59 Q48H BETHEL Discontinued Medications Generic Name Dose Route Start Last Admin Trade Name Freq PRN Reason Stop Dose Admin Albuterol/Ipratropium 3 ml 07/01/20 12:56 07/01/20 13:00 Duoneb 0.5-3 Mg/3 Ml Neb IH 07/01/20 12:57 3 ml STAT ONE Administration Albuterol/Ipratropium Confirm 07/01/20 13:02 Duoneb 0.5-3 Mg/3 Ml Neb Administered 07/01/20 13:03 Dose 3 ml IH .STK-MED ONE Sodium Chloride 1,000 mls @ 50 mls/hr 07/01/20 13:00 07/01/20 13:06 Sodium Chloride 0.9% 1000 Ml IV 07/31/20 12:59 50 mls/hr .Q20H BETHEL Administration Azithromycin 500 mg in 250 mls @ 250 mls/hr 07/01/20 13:49 07/01/20 15:00 Zithromax 500 Mg/ 250 Ml Nacl Premix IV 07/01/20 14:48 250 mls/hr STAT STA 250 mls/hr Administration Ceftriaxone Sodium/Dextrose 1 g in 50 mls @ 100 mls/hr 07/01/20 13:49 15:00 Rocephin 1 Gm-D5w 50 Ml Bag IV 07/01/20 14:18 Infused STAT STA Infusion Ceftriaxone Sodium/Dextrose Confirm 07/01/20 14:22 Rocephin 1 Gm-D5w 50 Ml Bag Administered 07/01/20 14:23 Dose 1 g in 50 mls @ ud IV .STK-MED ONE Azithromycin Confirm 07/01/20 14:57 Zithromax 500 Mg/ 250 Ml Nacl Premix Administered 07/01/20 14:58 Dose 500 mg in 250 mls @ ud IV .STK-MED ONE Sodium Chloride Confirm 07/01/20 13:05 Sodium Chloride 0.9% 1000 Ml Administered 07/01/20 13:06 Dose 1,000 mls @ ud .ROUTE .STK-MED ONE Intake & Output (Last 24 hours) 06/29/20 06/30/20 07/01/20 07/02/20 11:59 11:59 11:59 11:59 Intake Total 2135 Balance 2135 Weight 117.934 kg Laboratory Results (Last 24 hours) 07/02/20 07/02/20 07/01/20 05:30 05:30 19:00 WBC 12.6 H RBC 4.33 Hgb 11.5 L Hct 37.8 MCV 87.3 MCH 26.6 MCHC 30.4 L RDW 15.3 H Plt Count 363 MPV 9.2 Gran % 64.7 Eos # (Auto) 0.46 Absolute Lymphs (auto) 2.80 Absolute Monos (auto) 1.16 Lymphocytes % 22.2 L Monocytes % 9.2 Eosinophils % 3.7 Basophils % 0.2 Absolute Granulocytes 8.14 H Basophils # 0.03 PT INR Sodium 138 Potassium 4.1 Chloride 109 H Carbon Dioxide 27 Anion Gap 6.9 BUN 10 Creatinine 0.86 Estimated GFR > 60.0 Glucose 98 Calcium 8.5 Total Bilirubin 0.40 AST 29 ALT 15 Alkaline Phosphatase 78 Troponin I < 0.012 NT-Pro-B Natriuret Pep Serum Total Protein 6.1 L Albumin 3.1 L SARS-CoV-2 (PCR) 07/01/20 07/01/20 07/01/20 16:00 14:22 13:52 WBC RBC Hgb Hct MCV MCH MCHC RDW Plt Count MPV Gran % Eos # (Auto) Absolute Lymphs (auto) Absolute Monos (auto) Lymphocytes % Monocytes % Eosinophils % Basophils % Absolute Granulocytes Basophils # PT 25.7 H INR 2.26 Sodium Potassium Chloride Carbon Dioxide Anion Gap BUN Creatinine Estimated GFR Glucose Calcium Total Bilirubin AST ALT Alkaline Phosphatase Troponin I < 0.012 NT-Pro-B Natriuret Pep Serum Total Protein Albumin SARS-CoV-2 (PCR) NEGATIVE 07/01/20 07/01/20 07/01/20 13:22 13:22 13:22 WBC 22.1 H RBC 4.63 Hgb 12.3 Hct 39.4 MCV 85.1 MCH 26.6 MCHC 31.2 L RDW 15.0 H Plt Count 407 MPV 9.1 Gran % 79.2 H Eos # (Auto) 0.20 Absolute Lymphs (auto) 2.90 Absolute Monos (auto) 1.48 H Lymphocytes % 13.1 L Monocytes % 6.7 Eosinophils % 0.9 Basophils % 0.1 Absolute Granulocytes 17.51 H Basophils # 0.03 PT INR Sodium 139 Potassium 4.1 Chloride 106 Carbon Dioxide 26 Anion Gap 10.0 BUN 10 Creatinine 0.90 Estimated GFR > 60.0 Glucose 109 H Calcium 8.8 Total Bilirubin 0.60 AST 41 H ALT 18 Alkaline Phosphatase 96 Troponin I < 0.012 NT-Pro-B Natriuret Pep 176 Serum Total Protein 6.7 Albumin 3.6 SARS-CoV-2 (PCR) Orders (Last 24 hours) Category Date Time Status Up Ad Patito ROUTINE Activity 07/01/20 15:54 Active [facility] STAT Care 07/01/20 12:58 Completed Code Status Order ROUTINE Care 07/01/20 15:54 Active EKG-ER Only STAT Care 07/01/20 12:58 Completed IV Care Q6H Care 07/01/20 15:[address] in Observation ROUTINE Care 07/01/20 15:54 Active SCD's [Sequential Compression Device] Q6H Care 07/02/20 08:00 Active Lenin Gonzalez, Apply ROUTINE Care 07/01/20 15:54 Active Telemetry q6h Care 07/01/20 15:58 Active Supervisor Carding/Discharge Plan ROUTINE Cons 07/01/20 16:59 Active Consistent Carbohydrate Diet 1800 Calorie Diet 07/01/20 Dinner Active CHEST 1 VIEW (PORTABLE) Stat Exams 07/01/20 12:57 Completed CBC W DIFF AM.LAB Lab 07/02/20 05:30 Completed CBC W DIFF Stat Lab 07/01/20 13:22 Completed CMP AM.LAB Lab 07/02/20 05:30 Completed CMP Stat Lab 07/01/20 13:22 Completed NT PRO BNP Stat Lab 07/01/20 13:22 Completed PT INR [PROTIME WITH INR] DAILY Lab 07/03/20 05:00 Ordered PT INR [PROTIME WITH INR] DAILY Lab 07/04/20 05:00 Ordered PT INR [PROTIME WITH INR] DAILY Lab 07/05/20 05:00 Ordered PT INR [PROTIME WITH INR] DAILY Lab 07/06/20 05:00 Ordered PT INR [PROTIME WITH INR] DAILY Lab 07/07/20 05:00 Ordered PT INR [PROTIME WITH INR] Stat Lab 07/01/20 14:22 Completed TROPONIN Q3H Lab 07/01/20 13:22 Completed TROPONIN Q3H Lab 07/01/20 16:00 Completed TROPONIN Q3H Lab 07/01/20 19:00 Completed Acetaminophen 500 mg [Tylenol Extra Strength 500 mg* Med 07/01/20 17:17 Active ] 1,000 mg PO Q4H PRN PRN Albuterol/Ipratropium 3ml Neb* [DUONEB 0.5-3 MG/3 ml Med 07/01/20 13:02 Discontinued Neb] 3 ml IH .STK-MED ONE Albuterol/Ipratropium 3ml Neb* [DUONEB 0.5-3 MG/3 ml Med 07/01/20 19:00 Active Neb] 3 ml IH Q6HRT Albuterol/Ipratropium 3ml Neb* [DUONEB 0.5-3 MG/3 ml Med 07/01/20 12:56 Discontinued Neb] 3 ml IH STAT ONE Alendronate Sodium 70 mg [Fosamax 70 MG] Med 07/02/20 06:00 Active 35 mg PO Q7D@0600 Amitriptyline HCl 10 mg [Elavil 10 mg] Med 07/01/20 22:00 Active 10 mg PO HS Azithromycin 500 mg/250 ml [Zithromax 500 MG/ 250 ML Med 07/02/20 10:00 Active NaCl Premix] 500 mg in 250 ml IV Q24H10 Azithromycin 500 mg/250 ml [Zithromax 500 MG/ 250 ML Med 07/01/20 13:49 Discontinued NaCl Premix] 500 mg in 250 ml IV STAT Azithromycin 500 mg/250 ml [Zithromax 500 MG/ 250 ML Med 07/01/20 14:57 Discontinued NaCl Premix] 500 mg in 250 ml IV UD Calcium Carb/Vitamin D 500 mg* [Calcium 500MG W/Vit D Med 07/01/20 22:00 Active Tablet] 1 tab PO BID Ceftriaxone 1 GM/50 ML PREMIX* [ROCEPHIN 1 Gm-D5w 50 ml Med 07/02/20 10:00 Active Bag] 1 g in 50 ml IV Q24H10 Ceftriaxone 1 GM/50 ML PREMIX* [ROCEPHIN 1 Gm-D5w 50 ml Med 07/01/20 13:49 Discontinued Bag] 1 g in 50 ml IV STAT Ceftriaxone 1 GM/50 ML PREMIX* [ROCEPHIN 1 Gm-D5w 50 ml Med 07/01/20 14:22 Di scontinued Bag] 1 g in 50 ml IV UD Cholecalciferol (Vitamin D3) [Vitamin D] Med 07/02/20 10:00 Active 3,000 unit PO QAM Duloxetine HCl 30 mg [Cymbalta 30 MG Capsule] Med 07/02/20 10:00 Active 30 mg PO QAM Furosemide 20 mg [Lasix 20 mg] Med 07/02/20 10:00 Active 20 mg PO DAILY Gabapentin 400 mg [Neurontin 400 MG] Med 07/01/20 22:00 Active 800 mg PO BID Levothyroxine Sodium 100 Mcg [Synthroid 100 Mcg] Med 07/02/20 06:00 Active 100 mcg PO QAM@0600 Magnesium Oxide 400 mg [Mag-Ox 400] Med 07/02/20 10:00 Active 400 mg PO QAM NaCl 0.9% 1000 ml [Sodium Chloride 0.9% 1000 ML] 1,000 Med 07/01/20 13:05 Discontinued ml .ROUTE UD NaCl 0.9% 1000 ml [Sodium Chloride 0.9% 1000 ML] 1,000 Med 07/01/20 15:54 Active ml IV 100 mls/hr NaCl 0.9% 1000 ml [Sodium Chloride 0.9% 1000 ML] 1,000 Med 07/01/20 13:00 Discontinued ml IV 50 mls/hr PANTOPRAZOLE 40 mg Tablet [Protonix 40MG Tablet] Med 07/01/20 22:00 Active 40 mg PO BID Patient Own Med [Patient Own Medication] Med 07/02/20 10:00 Active 0 each IH QAM Potassium Chloride 10 Meq Tab* [Klor Con 10 MEQ] Med 07/02/20 10:00 Active 10 meq PO QAM Simvastatin 10 mg [Zocor 10MG] Med 07/01/20 22:00 Active 10 mg PO QPM Warfarin Sodium 1 mg [Coumadin 1 MG] Med 07/02/20 18:00 Active 1 mg PO Q48H Warfarin Sodium 3 mg [Coumadin 3 MG] Med 07/02/20 18:00 Active 3 mg PO DAILY@1800 Oxygen Nasal Cannula 2 lpm RT 07/01/20 15:54 Active Peak Expiratory Flow Rate ONCE RT 07/01/20 16:06 Active Pulse Oximetry .spot check RT 07/01/20 16:07 Active RT Screen per Nursing Assess ONCE RT 07/01/20 16:59 Completed Respiratory Therapy Assessment DAILY RT 07/01/20 13:21 Completed Respiratory Therapy Assessment DAILY RT 07/01/20 16:07 Active Code(s): J18.9 - PNEUMONIA, UNSPECIFIED ORGANISM (2) COPD (chronic obstructive pulmonary disease) Current Visit: Yes Status: Chronic Qualifiers: COPD type: chronic bronchitis Chronic bronchitis type: unspecified Qualified Code(s): J42 - Unspecified chronic bronchitis
[2020-07-02] MEDS ORDERED: NON-FORMULARY ITEM (Fluticasone/Umeclidin/Vilanter [Trelegy Ellipta 100-62.5-25] 1 PUFF) IH SCH (10:00)
[2020-07-02] MEDS ORDERED: VITAMIN D PO SCH (10:00)
[2020-07-02] MEDS: Zithromax 500 MG/ 250 ML NaCl Premix 500 MG/250 ML IVPB IV SCH (10:00)
[2020-07-02] MEDS: PATIENT OWN MEDICATION IH SCH (11:32)
[2020-07-02] MEDS: NORCO 5/325 MG PO PRN ×2 (13:25→23:12)
[2020-07-02] MEDS: Coumadin 3 MG PO SCH (17:27)
[2020-07-02] MEDS ORDERED: Coumadin 1 MG PO SCH (18:00)
[2020-07-02] MEDS: ELAVIL 10 MG PO SCH (21:12)
[2020-07-02] MEDS: Zocor 10MG PO SCH (21:12)
[2020-07-03] MEDS: DUONEB 0.5-3 MG/3 ml Neb IH SCH ×4 (01:44→19:44)
[2020-07-03] MEDS: SYNTHROID 100 MCG PO SCH (05:56)
[2020-07-03 05:59] LABS: INR 1.69 (0.8-3.0); PROTIME 19.2 SECONDS (9.95-12.35)
[2020-07-03] MEDS: PATIENT OWN MEDICATION IH SCH (07:31)
[2020-07-03] MEDS: NORCO 5/325 MG PO PRN (09:26)
[2020-07-03] MEDS: solu-MEDROL 125 MG IV SCH ×4 (09:27→23:49)
[2020-07-03] MEDS: VITAMIN D PO SCH (09:36)
[2020-07-03] MEDS: Neurontin 400 MG PO SCH ×2 (09:37→21:58)
[2020-07-03] MEDS: Cymbalta 30 MG Capsule PO SCH (09:37)
[2020-07-03] MEDS: LASIX 20 MG PO SCH (09:37)
[2020-07-03] MEDS: Protonix 40MG Tablet PO SCH ×2 (09:37→21:58)
[2020-07-03] MEDS: Calcium 500MG W/Vit D Tablet PO SCH ×2 (09:37→21:58)
[2020-07-03] MEDS: MAG-OX 400 PO SCH (09:37)
[2020-07-03] MEDS: Klor Con 10 MEQ PO SCH (09:37)
[2020-07-03] MEDS: ROCEPHIN 1 Gm-D5w 50 ml Bag** 1 G/50 ML IVPB IV SCH (09:38)
[2020-07-03] MEDS: Zithromax 500 MG/ 250 ML NaCl Premix 500 MG/250 ML IVPB IV SCH (10:43)
--- NOTE | 2020-07-03 11:05 | XRAY ---
Indication: Pain and swelling. History of DVT. Current Coumadin therapy. Two-dimensional sonogram and color Doppler imaging of the major venous vessels of the left leg was performed. Comparison: January 28, 2017. New nonoccluding thrombi scattered throughout the femoral and popliteal vein. No thrombus seen in the remaining visualized common femoral, posterior tibial, and greater saphenous veins. Impression: New nonoccluding DVT in the femoral and popliteal veins.
[2020-07-03] MEDS ORDERED: ENOXAPARIN SODIUM SQ SCH (15:00)
[2020-07-03] MEDS ORDERED: Coumadin 1 MG PO ONE (18:00)
[2020-07-03] MEDS: Coumadin 3 MG PO SCH (18:12)
[2020-07-03] MEDS: Zocor 10MG PO SCH (21:57)
[2020-07-03] MEDS: ELAVIL 10 MG PO SCH (21:58)
[2020-07-03] MEDS: TYLENOL EXTRA STRENGTH 500 MG PO PRN (22:03)
[2020-07-04] MEDS: DUONEB 0.5-3 MG/3 ml Neb IH SCH ×2 (00:10→07:45)
[2020-07-04] MEDS: solu-MEDROL 125 MG IV SCH (05:30)
[2020-07-04] MEDS: SYNTHROID 100 MCG PO SCH (05:30)
[2020-07-04 05:40] LABS: Absolute Neutrophil Ct (ANC) 8.37 (1.4-6.9); BASOPHIL % 0.1 % (0.0-0.4); Basophil (Absolute #) 0.01 (0-0.4); Eosinophil (Absolute #) 0 (0-0.5); Hematocrit 37.9 % (35-47); Hemoglobin 11.7 gm/dl (12.0-16.0); Lymphocyte (Absolute #) 1.45 (1.0-4.6); Lymphocytes % 14.6 % (24.0-44.0); Mean Cell Volume 85.6 fl (78-100); Mean Corpuscular Hemoglobin 26.4 pg (26-32); Mean Corpuscular Hgb Concent. 30.9 g/dl (32-36); Mean Platelet Volume 9.4 fl (7.5-11.0); Monocyte (Absolute #) 0.12 (0.0-1.3); Monocytes % 1.2 % (0.0-12.0); Neutrophil % 84.1 % (36.0-66.0); Platelet Count 427 K/mm3 (150-450); Red Blood Count 4.43 M/mm3 (4.1-5.4); Red Cell Distribution Width 15.2 % (11.5-14.0)
[2020-07-04 05:45] LABS: INR 1.82 (0.8-3.0); PROTIME 20.7 SECONDS (9.95-12.35)
[2020-07-04 05:55] LABS: ALBUMIN 3.5 g/dL (3.5-5.0); ALKALINE PHOSPHATASE 81 U/L (38-126); ANION GAP 9.4 MEQ/L (5-15); BLOOD UREA NITROGEN 11 mg/dL (7-17); CHLORIDE 106 mmol/L (98-107); Calcium 8.7 mg/dL (8.4-10.2); Carbon Dioxide 25 mmol/L (22-30); Creatinine 1 0.84 mg/dL (0.52-1.04); EST GLOMERULAR FILTRATION RATE > 60.0 ML/MIN; Glucose 167 mg/dL (74-106); Potassium 3.7 mmol/L (3.5-5.1); SGOT/AST 29 U/L (14-36); SGPT/ALT 18 U/L (0-35); SODIUM 137 mmol/L (137-145)
[2020-07-04 07:58] VITALS: BP 136/66; PULSE 85; O2SAT 96
[2020-07-04] MEDS ORDERED: ENOXAPARIN SODIUM SQ SCH (10:00)
--- NOTE | 2020-07-04 11:15 | DS ---
DISCHARGE DIAGNOSIS: ACUTE EXACERBATION OF CHRONIC OBSTRUCTIVE PULMONARY DISEASE. HOSPITAL COURSE: The patient is a 64 year old white female with a long history of chronic obstructive pulmonary disease and exacerbation. She sees Dr. Dunn and takes 10 mg of prednisone at home. The patient noticed increasing shortness of breath and was brought to the emergency room and admitted to the hospital. She had been checked out for COVID and was negative. The patient initially received IV Rocephin and Zithromax at which time her white count did improve but she was noted to be significantly wheezing by the next morning when I saw her. She did not receive any IV steroids. She was given Solu-Medrol 80 mg IV every six hours which did help take care of her wheezing. By the next morning, she was essentially wheeze-free. The patient does have nebulization medicines at home. She was felt to be ready for discharge home again at this time. The patient's chest x-ray was negative for pneumonia. Her metabolic panel was slightly elevated with sugar of 167 after the IV Solu-Medrol but everything else was normal. Her CBC and white count was down to 10,000. Her PLT count 427,000 and hemoglobin 11.7. She was discharged home on prednisone 60 mg for five days, 40 mg for five and then 20 mg for five and then back to her usual 10 mg a day. She will see me in the office in one week. The patient was also noted to have increase in swelling of the left leg. The venous Doppler did show the patient to have a new nonoccluding deep venous thrombosis in the femoral and popliteal veins. She was somewhat low on her INR and was increased on her Coumadin by 1 mg a day. On the day of discharge, her INR was up to 1.8. Again, the patient is ready for discharge home at this time with follow up appointment to see me in the office in one week and to follow up to see Dr. Dunn in the next two weeks. The patient reports she does have an appointment in July to see him already.
[2020-07-04] MEDS ORDERED: Coumadin 1 MG PO ONE (18:00)
== END 2020-07-04 10:26 | disposition home or self-care (01) | DRG 191 ==
LOC: ED 12:31 → MED SURG 15:44 → OBSVTOIN 07-02 09:50
PROVIDERS: ADMIT General Practice; ATTEND Family Medicine
DX: J44.1 Chronic obstructive pulmonary disease with (acute) exacerbation (principal); I82.412 Acute embolism and thrombosis of left femoral vein; I82.432 Acute embolism and thrombosis of left popliteal vein; Z79.01 Long term (current) use of anticoagulants; R51.9 Headache, unspecified; Z79.899 Other long term (current) drug therapy; I10 Essential (primary) hypertension; M79.89 Other specified soft tissue disorders
CPT/HCPCS: 36415; 80053; 83880; 84484; 85025; 85610; 93005; 93041; 93971; 94150; 94640; 94760; 96360; 96365; 96367; 99291; G0378; U0003; 71045; 99285; J0456; J0696; J1650; J2930; A9270-GY

== ENCOUNTER 2020-11-08 13:15 | Day surgery (SDC) | payer MEDICARE ==
[2020-11-08] MEDS ORDERED: Depo-Medrol 40 MG/ML IM ONE (13:16)
[2020-11-08] MEDS ORDERED: Xylocaine 1% Vial 30 ML PF IJ ONE (13:16)
[2020-11-08] MEDS ORDERED: BUPIVACAINE 0.5% VIAL IJ ONE (13:16)
[2020-11-08 13:47] LABS: INR 2.08 (0.8-3.0); PROTIME 23.7 SECONDS (9.95-12.35)
--- NOTE | 2020-11-08 15:22 | XRAY ---
Indication: Left shoulder injection. Intraoperative fluoroscopy provided for 26 seconds. 2 digital spot images submitted for interpretation demonstrate needle tip projecting over the left glenohumeral joint superiorly. Small amount of contrast injected for needle tip placement. Correlate with intraoperative findings/report.
--- NOTE | 2020-11-08 16:22 | XRAY ---
26 seconds of fluoroscopy was used in surgery for a left shoulder intra-articular injection.
== END 2020-11-08 14:51 | disposition home or self-care (01) ==
LOC: SDC-PAIN 13:15
PROVIDERS: ATTEND Psychiatry & Neurology Pain Medicine
DX: M19.012 Primary osteoarthritis, left shoulder (principal); I10 Essential (primary) hypertension; E78.5 Hyperlipidemia, unspecified; J44.9 Chronic obstructive pulmonary disease, unspecified; M06.9 Rheumatoid arthritis, unspecified; Z79.899 Other long term (current) drug therapy; Z79.01 Long term (current) use of anticoagulants
CPT/HCPCS: 20610; 36415; 73030; 77002; 85610; J1030; J2001; Q9966

== ENCOUNTER 2023-08-11 09:06 | Emergency (ER) | payer MEDICARE ==
[2023-08-11 09:42] VITALS: TEMP 97.5
--- NOTE | 2023-08-11 10:54 | ERPHSYRPT ---
- History of Present Illness Time Seen by Provider: 08/11/23 10:28 Source: patient Exam Limitations: no limitations Patient Subjective Stated Complaint: "weak and exausted for past week" Triage Nursing Assessment: C/o feeling weak and exhausted for past week. aaox3, color pale, sob with exertion , h/o copd, denies chest pain, denies cardiac problems. no diabetes, Physician History: Pt c/o shortness of air with exertion and fatigue for the past week; constant occipital headache up to 8/10, chills and cough productive of clear phlegm for the past 2 weeks. Pt also c/o dizziness. Allergies/Adverse Reactions: Latex, Natural Rubber Allergy (Intermediate, Verified 08/20/22 16:34) methotrexate Allergy (Intermediate, Verified 08/20/22 16:34) Home Medications: Alendronate Sodium 35 mg PO WEEKLY 10/21/15 [History] Furosemide 20 mg [Lasix 20 mg] 20 mg PO DAILY 05/03/16 [History] Potassium Chloride Tab* [Klor Con] 10 meq PO QAM 07/02/16 [History] Gabapentin [Neurontin ] 2 cap PO BID 11/10/17 [History] Calcium Carbonate/Vitamin D3 [Calcium 600-Vit D3 400 Caplet] 1 tab PO BID 01/17/18 [History] Warfarin Sodium 3 mg [Coumadin 3 MG] 3 mg PO UD 01/17/18 [History] Warfarin Sodium [Coumadin] 4 mg PO UD 01/17/18 [History] Albuterol Sulfate 3 ml IH BID 07/01/20 [History] Albuterol Sulfate [Albuterol Sulfate Hfa] 2 puff IH QIDPRN PRN 07/01/20 [H istory] Atorvastatin Calcium 10 mg PO QPM 07/01/20 [History] Cholecalciferol (Vitamin D3) [Vitamin D] 3,000 tab PO QAM 07/01/20 [History] Duloxetine HCl 30 mg PO QAM 07/01/20 [History] Fluticasone/Umeclidin/Vilanter [Trelegy Ellipta 100-62.5-25] 1 puff IH QAM 07/01/20 [History] Levothyroxine Sodium 100 mcg PO QAM 07/01/20 [History] Magnesium Oxide 400 mg [Mag-Ox 400] 400 mg PO QAM 07/01/20 [History] PANTOPRAZOLE 40 mg Tablet [Protonix 40MG Tablet] 40 mg PO BID 07/01/20 [History] Hx Tetanus, Diphtheria Vaccination/Date Given: No Hx Influenza Vaccination/Date Given: No Hx Pneumococcal Vaccination/Date Given: No Immunizations Up to Date: Yes Travel Risk - International Travel Have you traveled outside of the country in past 3 weeks: No - Coronavirus Screening Symptoms: Shortness of Breath, Vomiting/Diarrhea Close contact with a COVID-19 positive Pt in past 14-21 Days: No - Vaccine Status Have you recieved a Covid-19 vaccination: Yes 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 - Vaccination Dates Date of 2cond Vaccination (if applicable): 2020 - Review of Systems Constitutional: Chills, Fatigue Respiratory: Cough, Dyspnea on Exertion (MIRZA) Cardiac: No Chest Pain Abdominal/Gastrointestinal: No Abdominal Pain, No Nausea, No Vomiting, No Diarrh ea Neurological: Dizziness, Headache - Past Medical History Pertinent Past Medical History: Yes Neurological History: No Pertinent History ENT History: No Pertinent History Cardiac History: Hypertension Respiratory History: COPD Endocrine Medical History: No Pertinent History Musculoskeletal History: Fibromyalgia, Osteoarthritis, Rheumatoid Arthritis GI Medical History: No Pertinent History History: No Pertinent History Psycho-Social History: Anxiety Other Medical History: 2L O2 AT NIGHT AND SOMETIMES DURING THE DAY. CONSTANT HEADACHE. 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 ALSO TRIED A TENS WITHOUT MUCH RELIEF. STAGE 3 KIDNEY DISEASE. MRI OF THE BACK IN THE PAST, DX WITH SPONDYLOSIS. LB SURGERY IN 2006, L SHOULDER SURGERY 2021, R SHOULDER SURGERY 2011, R FOOT SURGERY 2011. OSTEOPENIA, HISTORY OF SI JOINT PAIN. - Past Surgical History Past Surgical History: Yes Neuro Surgical History: No Pertinent History Cardiac: No Pertinent History Respiratory: No Pertinent History Gastrointestinal: Cholecystectomy Genitourinary: No Pertinent History Musculoskeletal: Orthopedic Surgery Female Surgical History: No Pertinent History Other Surgical History: rt shoulder/foot. back surgery. - Social History Smoking Status: Never smoker Exposure to second hand smoke: Yes ( quit 1979) Drug Use: none Patient Lives Alone: No - Nursing Vital Signs Nursing Vital Signs: Initial Vital Signs Temperature 97.5 F 08/11/23 09:23 Pulse Rate 108 H 08/11/23 09:23 Respiratory Rate 22 08/11/23 09:23 Blood Pressure 135/106 08/11/23 09:23 O2 Sat by Pulse Oximetry 95 08/11/23 09:23 Pain Scale Pain Intensity 3 - Physical Exam General Appearance: alert Eye Exam: PERRL/EOMI Ears, Nose, Throat Exam: TM abnormal (R) (erythematous), TM abnormal (L) (erythematous) Neck Exam: normal inspection Respiratory Exam: wheezing (expiratory wheezing over posterior bases) Cardiovascular Exam: normal heart sounds Gastrointestinal/Abdomen Exam: normal bowel sounds Back Exam: normal inspection Neurologic Exam: alert, cooperative Skin Exam: warm, dry SpO2 Interpretation: normal SpO2: 95 O2 Delivery: Room Air - Course Nursing assessment & vital signs reviewed: Yes EKG Interpreted by Me: RATE ([id number]), Sinus Tach, Left Center Sandwich Deviation - CT Exams Head CT Interpretation: Tele-radiologist Report (Mild bilateral maxillary acute sinusitis. Mild microvascular ischemic changes and senile changes.) Chest CT Interpretation: Tele-radiologist Report (Large hiatal hernia. No evidence of consolidation or pulmonary infection.) Ordered Tests: Active Orders 24 hr Category Date Time Status EKG-ER Only STAT Care 08/11/23 10:53 Active IV Insertion STAT Care 08/11/23 11:34 Active cath [Cath for Specimen-Straight] STAT Care 08/11/23 13:56 Active CHEST WITHOUT CONTRAST [CT] Stat Exams 08/11/23 10:52 Completed HEAD WITHOUT CONTRAST [CT] Stat Exams 08/11/23 10:53 Completed BLOOD CULTURE Stat Lab 08/11/23 11:00 Received CBC W DIFF Stat Lab 08/11/23 10:48 Completed CMP Stat Lab 08/11/23 11:09 Completed CULTURE,SPUTUM Stat Lab 08/11/23 14:03 Ordered CULTURE,URINE Stat Lab 08/11/23 13:56 Received Lactic Acid Stat Lab 08/11/23 11:20 Completed Lactic Acid Stat Lab 08/11/23 13:25 Completed MAGNESIUM Stat Lab 08/11/23 11:09 Completed PROTIME WITH INR Stat Lab 08/11/23 11:09 Completed PTT Stat Lab 08/11/23 11:09 Completed TROPONIN Q4H Lab 08/11/23 11:09 Completed TROPONIN Q4H Lab 08/11/23 14:32 Received TROPONIN Q4H Lab 08/11/23 19:00 Ordered UA W/RFX UR CULTURE Stat Lab 08/11/23 13:56 Completed VENOUS BLOOD GAS Stat Lab 08/11/23 11:20 Completed Respiratory Therapy Assessment DAILY RT 08/11/23 11:29 Active Medication Summary Discontinued Medications Generic Name Dose Route Start Last Admin Trade Name Terrell PRN Reason Stop Dose Admin Albuterol Sulfate 2.5 mg 08/11/23 10:48 08/11/23 11:20 Albuterol Sulfate 2.5 Mg/3 Ml Neb IH 08/11/23 10:49 2.5 mg STAT ONE Administration Albuterol Sulfate Confirm 08/11/23 11:17 Albuterol Sulfate 2.5 Mg/3 Ml Neb Administered 08/11/23 11:18 Dose 2.5 mg IH .STK-MED ONE Sodium Chloride 1,000 mls @ 999 mls/hr 08/11/23 10:48 08/11/23 12:54 Sodium Chloride 0.9% 1000 Ml IV 08/11/23 11:48 Infused .Q1H1M STA Infusion Ceftriaxone Sodium/Dextrose 1 g in 50 mls @ 100 mls/hr 08/11/23 10:48 08/11/23 12:11 Rocephin 1 Gm-D5w 50 Ml Bag IV 08/11/23 11:17 Infused STAT STA Infusion Azithromycin 500 mg in 250 mls @ 250 mls/hr 08/11/23 10:48 08/11/23 12:55 Zithromax 500 Mg/ 250 Ml Nacl Premix IV 08/11/23 11:47 Infused STAT STA Infusion Azithromycin Confirm 08/11/23 11:35 Zithromax 500 Mg/ 250 Ml Nacl Premix Administered 08/11/23 11:36 Dose 500 mg in 250 mls @ ud IV .STK-MED ONE Sodium Chloride Confirm 08/11/23 11:35 Sodium Chloride 0.9% 1000 Ml Administered 08/11/23 11:36 Dose 1,000 mls @ ud .ROUTE .STK-MED ONE Ceftriaxone Sodium/Dextrose Confirm 08/11/23 11:35 Rocephin 1 Gm-D5w 50 Ml Bag Administered 08/11/23 11:36 Dose 1 g in 50 mls @ ud IV .STK-MED ONE Sodium Chloride 1,000 mls @ 999 mls/hr 08/11/23 13:25 08/11/23 14:30 Sodium Chloride 0.9% 1000 Ml IV 08/11/23 14:25 Infused .Q1H1M STA Infusion Sodium Chloride Confirm 08/11/23 13:27 Sodium Chloride 0.9% 1000 Ml Administered 08/11/23 13:28 Dose 1,000 mls @ ud .ROUTE .STK-MED ONE Ondansetron HCl 4 mg 08/11/23 11:59 08/11/23 12:01 Ondansetron Hcl 4 Mg/2 Ml Vial IV 08/11/23 12:00 4 mg STAT ONE Administration Ondansetron HCl Confirm 08/11/23 11:59 Ondansetron Hcl 4 Mg/2 Ml Vial Administered 08/11/23 12:00 Dose 4 mg .ROUTE .STK-MED ONE Lab/Rad Data: Laboratory Result Diagrams 08/11/23 10:48 08/11/23 11:09 Laboratory Results 08/11/23 08/11/23 08/11/23 Range/Units 13:56 13:25 11:20 WBC (4.0-10.5) x10^3/uL RBC (4.1-5.4) x10^6/uL Hgb (12.0-16.0) g/dL Hct (35-47) % MCV (78-100) fL MCH (26-32) pg MCHC (32-36) g/dL RDW (11.5-14.0) % Plt Count (150-450) x10^3/uL MPV (7.5-11.0) fL Gran % (36.0-66.0) % Immature Gran % (Auto) (0.00-0.4) % Nucleat RBC Rel Count (0.00-0.1) % Eos # (Auto) (0-0.5) x10^3/uL Immature Gran # (Auto) (0.00-0.03) x10^3u/L Absolute Lymphs (auto) (1.0-4.6) x10^3/uL Absolute Monos (auto) (0.0-1.3) x10^3/uL Absolute Nucleated RBC (0.00-0.01) x10^3u/L Lymphocytes % (24.0-44.0) % Monocytes % (0.0-12.0) % Eosinophils % (0.00-5.0) % Basophils % (0.0-0.4) % Absolute Granulocytes (1.4-6.9) x10^3/uL Basophils # (0-0.4) x10^3/uL PT (9.4-12.5) SECONDS INR (0.8-3.0) APTT (25.1-36.5) SECONDS pO2/FiO2 Ratio 21.0 % VBG pH 7.46 H (7.32-7.42) VBG pCO2 at Pat Temp 40 L (42-55) mm/Hg VBG pO2 at Pat Temp 31 (25-40) mm/Hg VBG HCO3 28.4 H (22-28) meq/L VBG O2 Sat (Theresa) 54.4 L (95-100) VBG Base Excess 4.2 H (-2.0-2.0) VBG Hemoglobin 13.8 VBG Carboxyhemoglobin 4.8 (0.0-6.9) % T HGB POC Potassium 4.3 (3.5-5.1) Sodium (137-145) mmol/L Potassium (3.5-5.1) mmol/L Chloride (98-107) mmol/L Carbon Dioxide (22-30) mmol/L Anion Gap (5-15) MEQ/L BUN (7-17) mg/dL Creatinine (0.52-1.04) mg/dL Estimated GFR ML/MIN Glucose (74-106) mg/dL Lactic Acid 2.4 H (0.4-2.0) Calcium (8.4-10.2) mg/dL Magnesium (1.6-2.3) mg/dL Total Bilirubin (0.2-1.3) mg/dL AST (14-36) U/L ALT (0-35) U/L Alkaline Phosphatase (38-126) U/L Troponin I (0.000-0.034) ng/mL Serum Total Protein (6.3-8.2) g/dL Albumin (3.5-5.0) g/dL Urine Color Dark Yellow A (Yellow) Urine Appearance Clear (Clear) Urine pH 5.0 (4.6-8.0) Ur Specific [place] >=1.030 A (1.005-1.030) Urine Protein 30 (Negative) Urine Glucose (UA) Negative (Negative) mg/dL Urine Ketones 15 A (Negative) Urine Blood Negative (Negative) Urine Nitrite Negative (Negative) Urine Bilirubin Small A (Negative) Urine Urobilinogen 1.0 A (0.2) mg/dL Ur Leukocyte Esterase Negative (Negative) U Hyaline Cast (Auto) 3-5 A (0-2) /LPF Urine Microscopic RBC 6-10 A (0-5) /HPF Urine Microscopic WBC 0-2 (0-5) /HPF Ur Epithelial Cells Rare (None Seen) /HPF Urine Bacteria None Seen (None Seen) /HPF Urine Culture Reflexed ORDERED SEPARATELY (NO) Influenza Type A Ag (NEGATIVE) Influenza Type B Ag (NEGATIVE) RSV (PCR) (NEGATIVE) SARS-CoV-2 (PCR) (NEGATIVE) 08/11/23 08/11/23 08/11/23 Range/Units 11:20 11:09 11:09 WBC (4.0-10.5) x10^3/uL RBC (4.1-5.4) x10^6/uL Hgb (12.0-16.0) g/dL Hct (35-47) % MCV (78-100) fL MCH (26-32) pg MCHC (32-36) g/dL RDW (11.5-14.0) % Plt Count (150-450) x10^3/uL MPV (7.5-11.0) fL Gran % (36.0-66.0) % Immature Gran % (Auto) (0.00-0.4) % Nucleat RBC Rel Count (0.00-0.1) % Eos # (Auto) (0-0.5) x10^3/uL Immature Gran # (Auto) (0.00-0.03) x10^3u/L Absolute Lymphs (auto) (1.0-4.6) x10^3/uL Absolute Monos (auto) (0.0-1.3) x10^3/uL Absolute Nucleated RBC (0.00-0.01) x10^3u/L Lymphocytes % (24.0-44.0) % Monocytes % (0.0-12.0) % Eosinophils % (0.00-5.0) % Basophils % (0.0-0.4) % Absolute Granulocytes (1.4-6.9) x10^3/uL Basophils # (0-0.4) x10^3/uL PT (9.4-12.5) SECONDS INR (0.8-3.0) APTT (25.1-36.5) SECONDS pO2/FiO2 Ratio % VBG pH (7.32-7.42) VBG pCO2 at Pat Temp (42-55) mm/Hg VBG pO2 at Pat Temp (25-40) mm/Hg VBG HCO3 (22-28) meq/L VBG O2 Sat (Theresa) (95-100) VBG Base Excess (-2.0-2.0) VBG Hemoglobin VBG Carboxyhemoglobin (0.0-6.9) % T HGB POC Potassium (3.5-5.1) Sodium (137-145) mmol/L Potassium (3.5-5.1) mmol/L Chloride (98-107) mmol/L Carbon Dioxide (22-30) mmol/L Anion Gap (5-15) MEQ/L BUN (7-17) mg/dL Creatinine (0.52-1.04) mg/dL Estimated GFR ML/MIN Glucose (74-106) mg/dL Lactic Acid 2.7 H (0.4-2.0) Calcium (8.4-10.2) mg/dL Magnesium (1.6-2.3) mg/dL Total Bilirubin (0.2-1.3) mg/dL AST (14-36) U/L ALT (0-35) U/L Alkaline Phosphatase (38-126) U/L Troponin I < 0.012 (0.000-0.034) ng/mL Serum Total Protein (6.3-8.2) g/dL Albumin (3.5-5.0) g/dL Urine Color (Yellow) Urine Appearance (Clear) Urine pH (4.6-8.0) Ur Specific [place] (1.005-1.030) Urine Protein (Negative) Urine Glucose (UA) (Negative) mg/dL Urine Ketones (Negative) Urine Blood (Negative) Urine Nitrite (Negative) Urine Bilirubin (Negative) Urine Urobilinogen (0.2) mg/dL Ur Leukocyte Esterase (Negative) U Hyaline Cast (Auto) (0-2) /LPF Urine Microscopic RBC (0-5) /HPF Urine Microscopic WBC (0-5) /HPF Ur Epithelial Cells (None Seen) /HPF Urine Bacteria (None Seen) /HPF Urine Culture Reflexed (NO) Influenza Type A Ag NEGATIVE (NEGATIVE) Influenza Type B Ag NEGATIVE (NEGATIVE) RSV (PCR) POSITIVE (NEGATIVE) SARS-CoV-2 (PCR) NEGATIVE (NEGATIVE) 08/11/23 08/11/23 08/11/23 Range/Units 11:09 11:09 10:48 WBC 12.2 H (4.0-10.5) x10^3/uL RBC 4.81 (4.1-5.4) x10^6/uL Hgb 13.2 (12.0-16.0) g/dL Hct 43.2 (35-47) % MCV 89.8 (78-100) fL MCH 27.4 (26-32) pg MCHC 30.6 L (32-36) g/dL RDW 13.3 (11.5-14.0) % Plt Count 370 (150-450) x10^3/uL MPV 9.5 (7.5-11.0) fL Gran % 81.5 H (36.0-66.0) % Immature Gran % (Auto) 0.3 (0.00-0.4) % Nucleat RBC Rel Count 0.0 (0.00-0.1) % Eos # (Auto) 0.01 (0-0.5) x10^3/uL Immature Gran # (Auto) 0.04 H (0.00-0.03) x10^3u/L Absolute Lymphs (auto) 1.42 (1.0-4.6) x10^3/uL Absolute Monos (auto) 0.74 (0.0-1.3) x10^3/uL Absolute Nucleated RBC 0.00 (0.00-0.01) x10^3u/L Lymphocytes % 11.6 L (24.0-44.0) % Monocytes % 6.0 (0.0-12.0) % Eosinophils % 0.1 (0.00-5.0) % Basophils % 0.5 (0.0-0.4) % Absolute Granulocytes 9.97 H (1.4-6.9) x10^3/uL Basophils # 0.06 (0-0.4) x10^3/uL PT 28.6 H (9.4-12.5) SECONDS INR 2.81 (0.8-3.0) APTT 39.7 H (25.1-36.5) SECONDS pO2/FiO2 Ratio % VBG pH (7.32-7.42) VBG pCO2 at Pat Temp (42-55) mm/Hg VBG pO2 at Pat Temp (25-40) mm/Hg VBG HCO3 (22-28) meq/L VBG O2 Sat (Theresa) (95-100) VBG Base Excess (-2.0-2.0) VBG Hemoglobin VBG Carboxyhemoglobin (0.0-6.9) % T HGB POC Potassium (3.5-5.1) Sodium 138 (137-145) mmol/L Potassium 4.1 (3.5-5.1) mmol/L Chloride 101 (98-107) mmol/L Carbon Dioxide 25 (22-30) mmol/L Anion Gap 15.4 H (5-15) MEQ/L BUN 10 (7-17) mg/dL Creatinine 1.20 H (0.52-1.04) mg/dL Estimated GFR 49.3 ML/MIN Glucose 147 H (74-106) mg/dL Lactic Acid (0.4-2.0) Calcium 9.3 (8.4-10.2) mg/dL Magnesium 1.9 (1.6-2.3) mg/dL Total Bilirubin 0.50 (0.2-1.3) mg/dL AST 35 (14-36) U/L ALT 19 (0-35) U/L Alkaline Phosphatase 88 (38-126) U/L Troponin I (0.000-0.034) ng/mL Serum Total Protein 7.5 (6.3-8.2) g/dL Albumin 4.0 (3.5-5.0) g/dL Urine Color (Yellow) Urine Appearance (Clear) Urine pH (4.6-8.0) Ur Specific [place] (1.005-1.030) Urine Protein (Negative) Urine Glucose (UA) (Negative) mg/dL Urine Ketones (Negative) Urine Blood (Negative) Urine Nitrite (Negative) Urine Bilirubin (Negative) Urine Urobilinogen (0.2) mg/dL Ur Leukocyte Esterase (Negative) U Hyaline Cast (Auto) (0-2) /LPF Urine Microscopic RBC (0-5) /HPF Urine Microscopic WBC (0-5) /HPF Ur Epithelial Cells (None Seen) /HPF Urine Bacteria (None Seen) /HPF Urine Culture Reflexed (NO) Influenza Type A Ag (NEGATIVE) Influenza Type B Ag (NEGATIVE) RSV (PCR) (NEGATIVE) SARS-CoV-2 (PCR) (NEGATIVE) - Progress Progress: improved Counseled pt/family regarding: lab results, diagnosis, need for follow-up, rad results Medical Desision Making - Diagnostic Testing Diagnostic test were ordered, analyzed, and reviewed by me: Yes Radiological Interpretation: Teleradiologist Report - Departure Departure Disposition: Home Clinical Impression: RSV infection, Bronchitis, Headache, Maxillary sinusitis, acute Condition: Stable Critical Care Time: No Referrals: JACKY MARIA [Primary Care Provider] - Follow up/PCP as directed Instructions: Acute bronchitis, Respiratory Syncytial Virus, Adult (DC) Additional Instructions: Follow up with private doctor tomorrow. Prescriptions: Albuterol 2.5 mg/0.5 ml [PROVENTIL Solution 2.5 MG/0.5 ML] 2.5 mg IH Q4H PRN PRN #10 PRN Reason: Shortness Of Breath/Wheezing Cefpodoxime Proxetil 200 mg [Vantin 200 mg] 200 mg PO BID #20 tablet Azithromycin 250 mg [Zithromax 250 MG TABLET] 250 mg PO ZPACK #6 tablet
[2023-08-11] MEDS ORDERED: PROVENTIL 2.5 MG/3 ML NEB IH ONE (11:17)
[2023-08-11 11:19] LABS: Absolute Neutrophil Ct (ANC) 9.97 x10^3/uL (1.4-6.9); BASOPHIL % 0.5 % (0.0-0.4); Basophil (Absolute #) 0.06 x10^3/uL (0-0.4); Eosinophil % 0.1 % (0.00-5.0); Eosinophil (Absolute #) 0.01 x10^3/uL (0-0.5); Hematocrit 43.2 % (35-47); Hemoglobin 13.2 g/dL (12.0-16.0); IMMATURE GRAN # 0.04 x10^3u/L (0.00-0.03); IMMATURE GRAN % 0.3 % (0.00-0.4); Lymphocyte (Absolute #) 1.42 x10^3/uL (1.0-4.6); Lymphocytes % 11.6 % (24.0-44.0); Mean Cell Volume 89.8 fL (78-100); Mean Corpuscular Hemoglobin 27.4 pg (26-32); Mean Corpuscular Hgb Concent. 30.6 g/dL (32-36); Mean Platelet Volume 9.5 fL (7.5-11.0); Monocyte (Absolute #) 0.74 x10^3/uL (0.0-1.3); Neutrophil % 81.5 % (36.0-66.0); Platelet Count 370 x10^3/uL (150-450); Red Blood Count 4.81 x10^6/uL (4.1-5.4); Red Cell Distribution Width 13.3 % (11.5-14.0); White Blood Count 12.2 x10^3/uL (4.0-10.5)
[2023-08-11] MEDS: PROVENTIL 2.5 MG/3 ML NEB IH ONE (11:20)
[2023-08-11 11:27] LABS: VBG BASE EXCESS 4.2 (-2.0-2.0); VBG CARBOXYHEMOGLOBIN 4.8 % T HGB (0.0-6.9); VBG HCO3- 28.4 meq/L (22-28); VBG HEMOGLOBIN 13.8; VBG O2 SATURATION 54.4 (95-100); VBG POTASSIUM 4.3 (3.5-5.1); VBG pH 7.46 (7.32-7.42)
[2023-08-11] MEDS ORDERED: Sodium Chloride 0.9% 1000 ML 1,000 ML ONE ×2 (11:35→13:27)
[2023-08-11] MEDS ORDERED: Zithromax 500 MG/ 250 ML NaCl Premix 500 MG/250 ML IVPB IV ONE (11:35)
[2023-08-11] MEDS ORDERED: ROCEPHIN 1 Gm-D5w 50 ml Bag** 1 G/50 ML IVPB IV ONE (11:35)
[2023-08-11 11:37] LABS: ANION GAP 15.4 MEQ/L (5-15); BILIRUBIN,TOTAL 0.5 mg/dL (0.2-1.3); Calcium 9.3 mg/dL (8.4-10.2); Creatinine 1 1.2 mg/dL (0.52-1.04); EST GLOMERULAR FILTRATION RATE 49.3 ML/MIN; MAGNESIUM 1.9 mg/dL (1.6-2.3); Potassium 4.1 mmol/L (3.5-5.1); Total Protein 7.5 g/dL (6.3-8.2)
[2023-08-11] MEDS: ROCEPHIN 1 Gm-D5w 50 ml Bag** 1 G/50 ML IVPB IV STA (11:41)
[2023-08-11] MEDS: Sodium Chloride 0.9% 1000 ML 1,000 ML IV STA ×2 (11:41→13:29)
[2023-08-11] MEDS: Zithromax 500 MG/ 250 ML NaCl Premix 500 MG/250 ML IVPB IV STA (11:43)
[2023-08-11] MEDS ORDERED: Zofran 4 MG/2 ML VIAL ONE (11:59)
[2023-08-11] MEDS: Zofran 4 MG/2 ML VIAL IV ONE (12:01)
[2023-08-11 12:04] LABS: INFLUENZA A NEGATIVE (NEGATIVE); INFLUENZA B NEGATIVE (NEGATIVE); SARS-CoV-2 Xpert Express NEGATIVE (NEGATIVE)
[2023-08-11 12:13] LABS: RESPIRATORY SYNCTIAL VIRUS POSITIVE (NEGATIVE)
--- NOTE | 2023-08-11 13:08 | XRAY ---
CLINICAL HISTORY:headache COMPARISON:None. TECHNIQUE:Axial non-contrast CT scan of the brain was performed from the skull base to the high parietal region. Coronal and sagittal reconstructions were also obtained. FINDINGS: There are a few tiny ill-defined iso-to hypodense areas noted in the subcortical white matter bilaterally, suggestive of microvascular ischemic changes. The ventricular system, cortical sulci and basal cisterns are prominent and consistent with senile changes. The visualized brain parenchyma shows a normal appearance. Shannon-white matter differentiation is maintained. No midline shifts or deformity. No intracerebral or extra axial hematoma. Normal size and configuration of the cerebral ventricles. Normal CT appearance of the posterior fossa structures namely the cerebellar hemispheres, brainstem and cerebellar peduncles. The IACs are unremarkable. The cerebello-pontine angles are clear. The pituitary gland, the pineal gland, the optic chiasm are unremarkable. The osseous structures in the skull base are unremarkable. No definite calvarium fractures. The scanned paranasal sinuses show mild mucosal thickening with air-fluid levels representing acute bilateral maxillary sinusitis. IMPRESSION: 1. The above-mentioned findings are suggestive of mild microvascular ischemic changes and senile changes. 2. The rest of the non-enhanced CT study for the brain is unremarkable. 3. Mild bilateral maxillary acute sinuistis. Electronically Signed by: Mary Mohan MD. (08/11/2023 13:05:11 EST)
[2023-08-11 13:17] LABS: INR 2.81 (0.8-3.0); PROTIME 28.6 SECONDS (9.4-12.5); PTT 39.7 SECONDS (25.1-36.5)
--- NOTE | 2023-08-11 13:42 | XRAY ---
CLINICAL HISTORY:dyspnea on exertion; R/O PE COMPARISON:None. TECHNIQUE:Contiguous axial CT images of the chest were acquired without intravenous contrast. Coronal and sagittal reconstructions were also obtained. FINDINGS: For evaluation of pulmonary embolism, contrast CT chest with pulmonary embolism protocol is advised. No consolidation is seen. The lung parenchyma shows no inter or intralobular septal thickening. No pleural effusion or pneumothorax is seen. Few calcified mediastinal lymph nodes are noted, largest one in the right paratracheal region measures 0.9 cm. Small pre aortic lymph node measuring 0.8 cm is seen. Limited evaluation of the hilar lymph nodes due to lack of IV contrast. No pathologically enlarged axillary lymph nodes are seen. Cardiac size is normal, no pericardial effusion seen. Atherosclerotic calcification of the aortic arch and the coronary vessels. There is evidence of large hiatus hernia noted with herniation of the gastric fundus into the chest cavity. The included sections of the thyroid gland appear unremarkable. Sections of the upper abdomen unremarkable liver, evidence of cholecystectomy, unremarkable pancreas, bilateral adrenal glands and visualized kidneys. Calcified granulomas are seen within the spleen. Small splenule is seen near the splenic hilum. The osseous structures show mild spondylotic changes of the visualized spine. IMPRESSION: 1. For evaluation of pulmonary embolism, contrast CT chest with pulmonary embolism protocol is advised. 2. Large hiatus hernia noted with herniation of the gastric fundus into the chest cavity. 3. No evidence of consolidation or pulmonary infection. Electronically Signed by: Mary Mohan MD. (08/11/2023 13:38:20 EST)
[2023-08-11 14:50] LABS: Appearance Clear (Clear); Bacteria None Seen /HPF (None Seen); Bilirubin Small (Negative); Blood Negative (Negative); Epithelial Cells Rare /HPF (None Seen); Glucose, Urine Negative (Negative); Ketones 15 (Negative); Leukocyte Esterase Negative (Negative); Nitrite Negative (Negative); Protein,Urine Dip 30 (Negative); Specific Gravity >=1.030 (1.005-1.030); WBC 0-2 /HPF (0-5)
[2023-08-11 14:54] VITALS: RESP 18
[2023-08-11 14:54] LABS: ADD URINE CULTURE? ORDERED SEPARATELY (NO)
[2023-08-11 15:14] VITALS: BP 115/75; PULSE 117
[2023-08-11 15:30] VITALS: O2SAT 95
== END 2023-08-11 15:54 | disposition home or self-care (01) ==
LOC: ED 09:06
DX: J20.5 Acute bronchitis due to respiratory syncytial virus (principal); J01.00 Acute maxillary sinusitis, unspecified; R51.9 Headache, unspecified; R06.02 Shortness of breath; R53.83 Other fatigue; R05.1 Acute cough; R68.83 Chills (without fever); R42 Dizziness and giddiness; I12.9 Hypertensive chronic kidney disease with stage 1 through stage 4 chronic kidney disease, or unspecified chronic kidney disease; N18.30 Chronic kidney disease, stage 3 unspecified; Z79.01 Long term (current) use of anticoagulants; Z79.899 Other long term (current) drug therapy
CPT/HCPCS: 0241U; 36000; 36415; 70450; 71250; 80053; 81001; 82805; 83605; 83735; 84484; 85025; 85610; 85730; 87040; 87086; 93005; 94640; 96360; 96365; 96367; 96374; 99285; P9612; J0456; J0696; J2405; J7609; A9270-GY

== ENCOUNTER 2023-08-14 12:52 | Observation (INO) | payer MEDICARE ==
[2023-08-14] MEDS ORDERED: DUONEB 0.5-3 MG/3 ml Neb IH ONE ×2 (13:17→13:21)
[2023-08-14 14:11] LABS: Absolute Neutrophil Ct (ANC) 7.05 x10^3/uL (1.4-6.9); BASOPHIL % 0.4 % (0.0-0.4); Basophil (Absolute #) 0.05 x10^3/uL (0-0.4); Eosinophil % 1.6 % (0.00-5.0); Eosinophil (Absolute #) 0.19 x10^3/uL (0-0.5); Hematocrit 22.9 % (35-47); IMMATURE GRAN # 0.28 x10^3u/L (0.00-0.03); IMMATURE GRAN % 2.3 % (0.00-0.4); Lymphocytes % 28.9 % (24.0-44.0); Mean Cell Volume 90.9 fL (78-100); Mean Corpuscular Hemoglobin 27.8 pg (26-32); Mean Corpuscular Hgb Concent. 30.6 g/dL (32-36); Mean Platelet Volume 10.1 fL (7.5-11.0); Monocyte (Absolute #) 1.04 x10^3/uL (0.0-1.3); Monocytes % 8.6 % (0.0-12.0); NUCLEATED RBC # 0.41 x10^3u/L (0.00-0.01); NUCLEATED RBC % 3.4 % (0.00-0.1); Neutrophil % 58.2 % (36.0-66.0); Platelet Count 383 x10^3/uL (150-450); Red Blood Count 2.52 x10^6/uL (4.1-5.4); Red Cell Distribution Width 13.5 % (11.5-14.0); White Blood Count 12.1 x10^3/uL (4.0-10.5)
[2023-08-14 14:21] LABS: INR 3.68 (0.8-3.0); PROTIME 36.8 SECONDS (9.4-12.5)
[2023-08-14] MEDS ORDERED: Sodium Chloride 0.9% 1000 ML 1,000 ML ONE (14:29)
[2023-08-14] MEDS ORDERED: Sodium Chloride 0.9% 1000 ML 1,000 ML IV SCH ×2 (14:30→19:00)
[2023-08-14 14:31] LABS: ALBUMIN 3.3 g/dL (3.5-5.0); ANION GAP 11.1 MEQ/L (5-15); BILIRUBIN,TOTAL 0.7 mg/dL (0.2-1.3); Calcium 8.4 mg/dL (8.4-10.2); Creatinine 1 1.13 mg/dL (0.52-1.04); Total Protein 6.4 g/dL (6.3-8.2)
--- NOTE | 2023-08-14 14:38 | ERPHSYRPT ---
- History of Present Illness Time Seen by Provider: 08/14/23 12:59 Source: patient, family Exam Limitations: no limitations Patient Subjective Stated Complaint: SOB Triage Nursing Assessment: Patient brought into ED per W/C and transferred to bed with assist of 1. Patient A+O X3. Patient's skin pink, warm and dry. Patient complains of increased SOB since Friday. Patient was seen in ER and dx with RSV, Bronchitis, Sinusitis and prescribed sterioids, nebulizer and atb. Patient denies pain or disomfort. Physician History: 67 years old female presented in the ER with chief complaint of increasing shortness of breath and generalized weakness fatigue and tiredness. Patient was evaluated in this ER 4 days ago with RSV bronchiolitis/sinusitis and was given nebs/steroids and antibiotics. Patient reports worsening of generalized weakness. Denies any chest pain or palpitations. She gets short of breath with minimal activity. Patient also reports increasing pain on the right side of her belly with a bruising. No nausea or vomiting reported. Denies any hemoptysis/hematochezia/hematemesis. No fever or chills reported. Reports having wheezing which is a little worse than usual. Feeling lightheaded with standing. Allergies/Adverse Reactions: Latex, Natural Rubber Allergy (Intermediate, Verified 08/20/22 16:34) methotrexate Allergy (Intermediate, Verified 08/20/22 16:34) Home Medications: Alendronate Sodium 35 mg PO WEEKLY 10/21/15 [History] Furosemide 20 mg [Lasix 20 mg] 40 mg PO DAILY 05/03/16 [History] Potassium Chloride Tab* [Klor Con] 20 meq PO QAM 07/02/16 [History] Gabapentin [Neurontin ] 800 mg PO TID 11/10/17 [History] Warfarin Sodium [Coumadin] 4 mg PO DAILY 01/17/18 [History] Albuterol Sulfate 1 neb IH Q6H 07/01/20 [History] Albuterol Sulfate [Albuterol Sulfate Hfa] 2 puff IH QID 07/01/20 [History] Atorvastatin Calcium 10 mg PO QPM 07/01/20 [History] Cholecalciferol (Vitamin D3) [Vitamin D] 3,000 tab PO DAILY 07/01/20 [History] Duloxetine HCl 60 mg PO QAM 07/01/20 [History] Magnesium Oxide 400 mg [Mag-Ox 400] 400 mg PO DAILY 07/01/20 [History] PANTOPRAZOLE 40 mg Tablet [Protonix 40MG Tablet] 80 mg PO DAILY 07/01/20 [History] Benazepril HCl 5 mg PO DAILY 08/14/23 [History] Calcium Carbonate [Calcium] 1,200 mg PO DAILY 08/14/23 [History] Cetirizine HCl [Zyrtec] 10 mg PO DAILY PRN PRN 08/14/23 [History] Hydroxychloroquine Sulfate [Plaquenil] 200 mg PO DAILY 08/14/23 [History] Levothyroxine Sodium 88 Mcg [Synthroid 88 Mcg] 88 mcg PO DAILY 08/14/23 [History] Meclizine HCl 25 mg [Antivert 25 mg] 25 mg PO TIDPRN PRN 08/14/23 [History] Melatonin 10 mg PO HS 08/14/23 [History] Metoprolol Succinate 25 mg Xl* [Toprol-Xl 25MG Tablets] 25 mg PO DAILY 08/14/23 [History] Semaglutide [Ozempic] 0.5 mg SQ WEEKLY 08/14/23 [History] Hx Tetanus, Diphtheria Vaccination/Date Given: No Hx Influenza Vaccination/Date Given: No Hx Pneumococcal Vaccination/Date Given: No Immunizations Up to Date: Yes Travel Risk - International Travel Have you traveled outside of the country in past 3 weeks: No - Coronavirus Screening Are you exhibiting any of the following symptoms?: No Close contact with a COVID-19 positive Pt in past 14-21 Days: No - Vaccine Status Have you recieved a Covid-19 vaccination: Yes Cryptologic Technician: Moderna - Vaccination Dates Date of 2cond Vaccination (if applicable): 2020 - Review of Systems Constitutional: Fatigue, Weakness Eyes: No Symptoms Ears, Nose, & Throat: No Symptoms Respiratory: Cough, Dyspnea, Wheezing Cardiac: No Symptoms Abdominal/Gastrointestinal: Abdominal Pain Genitourinary Symptoms: No Symptoms Musculoskeletal: Back Pain Skin: No Symptoms Neurological: Dizziness Psychological: No Symptoms Endocrine: No Symptoms Hematologic/Lymphatic: No Symptoms - Past Medical History Pertinent Past Medical History: Yes Neurological History: No Pertinent History ENT History: No Pertinent History Cardiac History: Hypertension Respiratory History: COPD Endocrine Medical History: No Pertinent History Musculoskeletal History: Fibromyalgia, Osteoarthritis, Rheumatoid Arthritis GI Medical History: No Pertinent History History: No Pertinent History Psycho-Social History: Anxiety Other Medical History: 2L O2 AT NIGHT AND SOMETIMES DURING THE DAY. CONSTANT HEADACHE. 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 ALSO TRIED A TENS WITHOUT MUCH RELIEF. STAGE 3 KIDNEY DISEASE. MRI OF THE BACK IN THE PAST, DX WITH SPONDYLOSIS. LB SURGERY IN 2006, L SHOULDER SURGERY 2021, R SHOULDER SURGERY 2011, R FOOT SURGERY 2011. OSTEOPENIA, HISTORY OF SI JOINT PAIN. - Past Surgical History Past Surgical History: Yes Neuro Surgical History: No Pertinent History Cardiac: No Pertinent History Respiratory: No Pertinent History Gastrointestinal: Cholecystectomy Genitourinary: No Pertinent History Musculoskeletal: Orthopedic Surgery Female Surgical History: No Pertinent History Other Surgical History: rt shoulder/foot. back surgery. - Social History Smoking Status: Never smoker Exposure to second hand smoke: Yes ( quit 1979) Drug Use: none Patient Lives Alone: No - Nursing Vital Signs Nursing Vital Signs: Initial Vital Signs Temperature 97.8 F 08/14/23 12:57 Pulse Rate 88 08/14/23 12:57 Respiratory Rate 28 H 08/14/23 12:57 Blood Pressure 124/62 08/14/23 12:57 O2 Sat by Pulse Oximetry 97 08/14/23 12:57 Pain Scale Pain Intensity 0 - Physical Exam General Appearance: no apparent distress, alert Eye Exam: PERRL/EOMI Ears, Nose, Throat Exam: hearing grossly normal, normal ENT inspection, normal pharynx Neck Exam: normal inspection, non-tender, supple, full range of motion Respiratory Exam: wheezing Cardiovascular/Chest Exam: normal heart sounds, regular rate/rhythm Abdominal/Gastrointestinal Exam: normal bowel sounds, other (Bruising/hematoma right flank/right lower quadrant area. Firm consistency. Tender to touch.) Extremity Exam: non-tender, normal range of motion Neurologic Exam: alert, oriented x 3, cooperative Skin Exam: normal color SpO2 Interpretation: normal SpO2: 96 O2 Delivery: Room Air - Course EKG Interpreted by Me: RATE (85), Sinus Rhythm, NORMAL AXIS, NORMAL INTERVALS, Non-specific ST Changes Ordered Tests: Medication Summary Discontinued Medications Generic Name Dose Route Start Last Admin Trade Name Freq PRN Reason Stop Dose Admin Acetaminophen 650 mg 08/14/23 17:50 08/14/23 21:53 Acetaminophen 325 Mg Tablet PO 09/13/23 17:49 650 mg Q6H PRN PRN Administration PAIN AND/OR FEVER Albuterol Sulfate 2 puff 08/14/23 22:00 Albuterol Common Canister Inhaler IH 09/13/23 21:59 QID BETHEL Albuterol/Ipratropium 3 ml 08/14/23 13:17 08/14/23 13:28 Ipratropium/Albuterol Sulfate 3 Ml Ampul.Neb IH 08/14/23 13:18 3 ml STAT ONE Administration Albuterol/Ipratropium Confirm 08/14/23 13:21 Ipratropium/Albuterol Sulfate 3 Ml Ampul.Neb Administered 08/14/23 13:22 Dose 3 ml IH .STK-MED ONE Albuterol/Ipratropium 3 ml 08/14/23 19:00 08/16/23 07:25 Ipratropium/Albuterol Sulfate 3 Ml Ampul.Neb IH 09/13/23 18:59 3 ml Q6HRT BETHEL Administration Albuterol/Ipratropium Confirm 08/15/23 07:14 Ipratropium/Albuterol Sulfate 3 Ml Ampul.Neb Administered 08/15/23 07:15 Dose 3 ml IH .STK-MED ONE Alendronate Sodium 35 mg 08/17/23 06:00 Alendronate Sodium 70 Mg Tablet PO 09/16/23 05:59 Q7D@0600 BETHEL Benazepril HCl 5 mg 08/15/23 10:00 08/16/23 09:58 Benazepril Hcl 10 Mg Tablet PO 09/14/23 09:59 Not Given DAILY BETHEL Calcium Carbonate 2 tab 08/15/23 10:00 08/16/23 09:45 Calcium Carbonate 500 Mg/Vitamin D 1 Tab Tablet PO 09/14/23 09:59 2 tab DAILY BETHEL Administration Cholecalciferol 3,000 unit 08/15/23 10:00 08/16/23 09:45 Cholecalciferol (Vitamin D3) 1000 Unit Tablet PO 09/14/23 09:59 3,000 unit DAILY BETHEL Administration Methylprednisolone Sodium 0 mg 08/15/23 10:00 08/16/23 09:47 Succinate 40 mg/ Sterile Water IV 09/14/23 09:59 40 mg 1 ml Q12HT BETHEL Administration Duloxetine HCl 60 mg 08/15/23 10:00 08/16/23 09:44 Duloxetine Hcl 30 Mg Cap PO 09/14/23 09:59 60 mg QAM BETHEL Administration Furosemide 40 mg 08/15/23 10:00 08/16/23 09:45 Furosemide 40 Mg Tablet PO 09/14/23 09:59 40 mg DAILY BETHEL Administration Gabapentin 800 mg 08/14/23 22:00 08/16/23 09:45 Gabapentin 400 Mg Capsule PO 09/13/23 21:59 800 mg TID BETHEL Administration Guaifenesin/Dextromethorphan 5 ml 08/15/23 13:46 Guaifenesin/D-Methorphan Hb 118 Ml Syrup PO 09/14/23 13:45 Q4H PRN PRN COUGH Sodium Chloride 1,000 mls @ 125 mls/hr 08/14/23 14:30 08/14/23 14:31 Sodium Chloride 0.9% 1000 Ml IV 09/13/23 14:29 125 mls/hr .Q8H BETHEL Administration Sodium Chloride Confirm 08/14/23 14:29 Sodium Chloride 0.9% 1000 Ml Administered 08/14/23 14:30 Dose 1,000 mls @ ud .ROUTE .STK-MED ONE Sodium Chloride 1,000 mls @ 75 mls/hr 08/14/23 19:00 08/14/23 23:06 Sodium Chloride 0.9% 1000 Ml IV 09/13/23 18:59 75 mls/hr .[id number] BETHEL Administration Ceftriaxone Sodium/Dextrose 1 g in 50 mls @ 100 mls/hr 08/15/23 13:00 08/16/23 09:46 Rocephin 1 Gm-D5w 50 Ml Bag IV 08/18/23 12:59 100 mls/hr Q24H10 BETHEL Administration Lactobacillus Acidophilus 1 tab 08/15/23 13:00 08/16/23 09:46 Lactobacillus Acidophilus 1 Tab Tablet PO 09/14/23 12:59 1 tab DAILY BETHEL Administration Levothyroxine Sodium 88 mcg 08/15/23 10:00 08/16/23 09:48 Levothyroxine Sodium 88 Mcg Tablet PO 09/14/23 09:59 88 mcg DAILY BETHEL Administration Lidocaine HCl Confirm 08/14/23 15:46 Lidocaine Hcl 1% 20 Ml Mdv 20 Ml Ml Administered 08/14/23 15:47 Dose 3 ml .ROUTE .STK-MED ONE Loratadine 10 mg 08/15/23 07:20 Loratadine 10 Mg Tablet PO 09/14/23 07:19 DAILY PRN PRN Magnesium Oxide 400 mg 08/15/23 10:00 08/16/23 09:45 Magnesium Oxide 400 Mg Tablet PO 09/14/23 09:59 400 mg DAILY BETHEL Administration Meclizine HCl 25 mg 08/14/23 18:45 Meclizine Hcl 25 Mg Tablet PO 09/13/23 18:44 TIDPRN PRN DIZZINESS Melatonin Confirm 08/14/23 21:32 Melatonin 3 Mg Tablet Administered 08/14/23 21:33 Dose 9 mg PO .STK-MED ONE Melatonin 9 mg 08/15/23 22:00 Melatonin 3 Mg Tablet PO 09/14/23 21:59 HS BETHEL Melatonin 9 mg 08/14/23 22:32 08/15/23 23:05 Melatonin 3 Mg Tablet PO 09/13/23 21:59 9 mg HS [facility] Administration Methylprednisolone Sodium Succinate Confirm 08/15/23 22:23 Methylprednisolone Sod Suc 40m 40 Mg/Ml Vial Administered 08/15/23 22:24 Dose 40 mg .ROUTE .STK-MED ONE Metoprolol Succinate 25 mg 08/15/23 10:00 08/16/23 13:55 Metoprolol Succinate 25 Mg Xl Tab PO 09/14/23 09:59 Not Given DAILY BETHEL Non-Formulary Medication 1 each 08/14/23 17:43 08/14/23 21:43 Pharmacy Dosing Request 08/14/23 17:44 1 each STAT ONE Administration Non-Formulary Medication 1 each 08/14/23 18:42 08/14/23 21:43 Pharmacy Dosing Request 08/14/23 18:43 1 each STAT ONE Administration Non-Formulary Dru each 08/15/23 10:00 08/16/23 09:47 Hydroxychloroquine PO 09/14/23 09:59 1 each 200 Mg DAILY BETHEL Administration Ondansetron HCl 4 mg 08/14/23 17:50 Ondansetron Hcl 4 Mg/2 Ml Vial IV 09/13/23 17:49 Q6H PRN PRN NAUSEA/VOMITING Pantoprazole Sodium 80 mg 08/15/23 10:00 08/16/23 09:46 Protonix (Pantoprazole) 40 Mg Tablet PO 09/14/23 09:59 80 mg DAILY BETHEL Administration Phytonadione 5 mg 08/14/23 14:45 08/14/23 14:53 Phytonadione 10 Mg/Ml Amp PO 08/14/23 14:46 5 mg STAT ONE Administration Phytonadione Confirm 08/14/23 14:48 Phytonadione 10 Mg/Ml Amp Administered 08/14/23 14:49 Dose 10 mg .ROUTE .STK-MED ONE Potassium Chloride 20 meq 08/15/23 10:00 08/16/23 09:46 Potassium Chloride Tab 10 Meq Tab PO 09/14/23 09:59 20 meq QAM BETHEL Administration Fluticasone/Salmeterol 1 each 08/14/23 19:00 08/15/23 07:00 Fluticasone/Salmeterol 500/50* 1 Each Inh IH 09/13/23 18:59 Not Given BIDRT BETHEL Simvastatin Confirm 08/14/23 21:33 Simvastatin 10 Mg Tablet Administered 08/14/23 21:34 Dose 10 mg .ROUTE .STK-MED ONE Simvastatin 10 mg 08/14/23 22:00 08/15/23 23:03 Simvastatin 10 Mg Tablet PO 09/13/23 21:59 10 mg HS [facility] Administration Throat Lozenges 15 mg 08/14/23 20:33 08/14/23 21:24 Benzocaine/Menthol 15 Mg Lozenge - Cepacol PO 09/13/23 20:32 15 mg Q2H PRN PRN Administration SORE THROAT OR COUGH Warfarin Sodium 1 mg 08/14/23 21:00 08/14/23 21:56 Warfarin Sodium 1 Mg Tablet PO 08/14/23 21:01 1 mg ONCE ONE Administration Warfarin Sodium 3 mg 08/18/23 18:00 Warfarin Sodium 3 Mg Tablet PO 09/17/23 17:59 MOWEFR [facility] Warfarin Sodium 4 mg 08/14/23 20:45 Warfarin Sodium 2 Mg Tablet PO 09/13/23 20:44 UD BETHEL Warfarin Sodium 4 mg 08/16/23 18:00 Warfarin Sodium 2 Mg Tablet PO 09/15/23 17:59 COU [facility] Lab/Rad Data: Laboratory Result Diagrams 08/14/23 13:40 08/14/23 13:40 Laboratory Results 08/14/23 08/14/23 08/14/23 Range/Units 16:00 16:00 16:00 WBC (4.0-10.5) x10^3/uL RBC (4.1-5.4) x10^6/uL Hgb (12.0-16.0) g/dL Hct (35-47) % MCV (78-100) fL MCH (26-32) pg MCHC (32-36) g/dL RDW (11.5-14.0) % Plt Count (150-450) x10^3/uL MPV (7.5-11.0) fL Gran % (36.0-66.0) % Immature Gran % (Auto) (0.00-0.4) % Nucleat RBC Rel Count (0.00-0.1) % Eos # (Auto) (0-0.5) x10^3/uL Immature Gran # (Auto) (0.00-0.03) x10^3u/L Absolute Lymphs (auto) (1.0-4.6) x10^3/uL Absolute Monos (auto) (0.0-1.3) x10^3/uL Absolute Nucleated RBC (0.00-0.01) x10^3u/L Lymphocytes % (24.0-44.0) % Monocytes % (0.0-12.0) % Eosinophils % (0.00-5.0) % Basophils % (0.0-0.4) % Absolute Granulocytes (1.4-6.9) x10^3/uL Segmented Neutrophils (36.0-66.0) % Lymphocytes (Manual) (24-44) % Monocytes (Manual) (0.0-12.0) % Basophils # (0-0.4) x10^3/uL Nucleated RBCs % Hypochromia Platelet Estimate (NORMAL) RBC Morphology Polychromasia Anisocytosis Microcytosis PT (9.4-12.5) SECONDS INR (0.8-3.0) Sodium (137-145) mmol/L Potassium (3.5-5.1) mmol/L Chloride (98-107) mmol/L Carbon Dioxide (22-30) mmol/L Anion Gap (5-15) MEQ/L BUN (7-17) mg/dL Creatinine (0.52-1.04) mg/dL Estimated GFR ML/MIN Glucose (74-106) mg/dL Lactic Acid (0.4-2.0) Calcium (8.4-10.2) mg/dL Magnesium (1.6-2.3) mg/dL Total Bilirubin (0.2-1.3) mg/dL AST (14-36) U/L ALT (0-35) U/L Alkaline Phosphatase (38-126) U/L Troponin I (0.000-0.034) ng/mL NT-Pro-B Natriuret Pep (<300) pg/mL Serum Total Protein (6.3-8.2) g/dL Albumin (3.5-5.0) g/dL Influenza Type A Ag (NEGATIVE) Influenza Type B Ag (NEGATIVE) RSV (PCR) (NEGATIVE) SARS-CoV-2 (PCR) (NEGATIVE) ABO Group O Rh Factor POSITIVE Antibody Screen NEGATIVE (NEGATIVE) Crossmatch COMPATIBLE COMPATIBLE (COMPATIBLE) 08/14/23 08/14/23 08/14/23 Range/Units 15:26 13:44 13:44 WBC (4.0-10.5) x10^3/uL RBC (4.1-5.4) x10^6/uL Hgb (12.0-16.0) g/dL Hct (35-47) % MCV (78-100) fL MCH (26-32) pg MCHC (32-36) g/dL RDW (11.5-14.0) % Plt Count (150-450) x10^3/uL MPV (7.5-11.0) fL Gran % (36.0-66.0) % Immature Gran % (Auto) (0.00-0.4) % Nucleat RBC Rel Count (0.00-0.1) % Eos # (Auto) (0-0.5) x10^3/uL Immature Gran # (Auto) (0.00-0.03) x10^3u/L Absolute Lymphs (auto) (1.0-4.6) x10^3/uL Absolute Monos (auto) (0.0-1.3) x10^3/uL Absolute Nucleated RBC (0.00-0.01) x10^3u/L Lymphocytes % (24.0-44.0) % Monocytes % (0.0-12.0) % Eosinophils % (0.00-5.0) % Basophils % (0.0-0.4) % Absolute Granulocytes (1.4-6.9) x10^3/uL Segmented Neutrophils (36.0-66.0) % Lymphocytes (Manual) (24-44) % Monocytes (Manual) (0.0-12.0) % Basophils # (0-0.4) x10^3/uL Nucleated RBCs % Hypochromia Platelet Estimate (NORMAL) RBC Morphology Polychromasia Anisocytosis Microcytosis PT (9.4-12.5) SECONDS INR (0.8-3.0) Sodium (137-145) mmol/L Potassium (3.5-5.1) mmol/L Chloride (98-107) mmol/L Carbon Dioxide (22-30) mmol/L Anion Gap (5-15) MEQ/L BUN (7-17) mg/dL Creatinine (0.52-1.04) mg/dL Estimated GFR ML/MIN Glucose (74-106) mg/dL Lactic Acid 1.9 (0.4-2.0) Calcium (8.4-10.2) mg/dL Magnesium (1.6-2.3) mg/dL Total Bilirubin (0.2-1.3) mg/dL AST (14-36) U/L ALT (0-35) U/L Alkaline Phosphatase (38-126) U/L Troponin I 0.045 H* (0.000-0.034) ng/mL NT-Pro-B Natriuret Pep (<300) pg/mL Serum Total Protein (6.3-8.2) g/dL Albumin (3.5-5.0) g/dL Influenza Type A Ag NEGATIVE (NEGATIVE) Influenza Type B Ag NEGATIVE (NEGATIVE) RSV (PCR) POSITIVE (NEGATIVE) SARS-CoV-2 (PCR) NEGATIVE (NEGATIVE) ABO Group Rh Factor Antibody Screen (NEGATIVE) Crossmatch (COMPATIBLE) 08/14/23 08/14/23 08/14/23 Range/Units 13:40 13:40 13:40 WBC 12.1 H (4.0-10.5) x10^3/uL RBC 2.52 L (4.1-5.4) x10^6/uL Hgb 7.0 L* (12.0-16.0) g/dL Hct 22.9 L (35-47) % MCV 90.9 (78-100) fL MCH 27.8 (26-32) pg MCHC 30.6 L (32-36) g/dL RDW 13.5 (11.5-14.0) % Plt Count 383 (150-450) x10^3/uL MPV 10.1 (7.5-11.0) fL Gran % 58.2 (36.0-66.0) % Immature Gran % (Auto) 2.3 H (0.00-0.4) % Nucleat RBC Rel Count 3.4 H (0.00-0.1) % Eos # (Auto) 0.19 (0-0.5) x10^3/uL Immature Gran # (Auto) 0.28 H (0.00-0.03) x10^3u/L Absolute Lymphs (auto) 3.50 (1.0-4.6) x10^3/uL Absolute Monos (auto) 1.04 (0.0-1.3) x10^3/uL Absolute Nucleated RBC 0.41 H (0.00-0.01) x10^3u/L Lymphocytes % 28.9 (24.0-44.0) % Monocytes % 8.6 (0.0-12.0) % Eosinophils % 1.6 (0.00-5.0) % Basophils % 0.4 (0.0-0.4) % Absolute Granulocytes 7.05 H (1.4-6.9) x10^3/uL Segmented Neutrophils 78 H (36.0-66.0) % Lymphocytes (Manual) 14 L (24-44) % Monocytes (Manual) 8 (0.0-12.0) % Basophils # 0.05 (0-0.4) x10^3/uL Nucleated RBCs 2 % Hypochromia 1+ Platelet Estimate NORMAL (NORMAL) RBC Morphology ABNORMAL Polychromasia 1+ Anisocytosis 1+ Microcytosis 1+ PT 36.8 H (9.4-12.5) SECONDS INR 3.68 H (0.8-3.0) Sodium 136 L (137-145) mmol/L Potassium 4.0 (3.5-5.1) mmol/L Chloride 106 (98-107) mmol/L Carbon Dioxide 23 (22-30) mmol/L Anion Gap 11.1 (5-15) MEQ/L BUN 12 (7-17) mg/dL Creatinine 1.13 H (0.52-1.04) mg/dL Estimated GFR 53.0 ML/MIN Glucose 94 (74-106) mg/dL Lactic Acid (0.4-2.0) Calcium 8.4 (8.4-10.2) mg/dL Magnesium 2.0 (1.6-2.3) mg/dL Total Bilirubin 0.70 (0.2-1.3) mg/dL AST 54 H (14-36) U/L ALT 18 (0-35) U/L Alkaline Phosphatase 60 (38-126) U/L Troponin I (0.000-0.034) ng/mL NT-Pro-B Natriuret Pep 1540 (<300) pg/mL Serum Total Protein 6.4 (6.3-8.2) g/dL Albumin 3.3 L (3.5-5.0) g/dL Influenza Type A Ag (NEGATIVE) Influenza Type B Ag (NEGATIVE) RSV (PCR) (NEGATIVE) SARS-CoV-2 (PCR) (NEGATIVE) ABO Group Rh Factor Antibody Screen (NEGATIVE) Crossmatch (COMPATIBLE) 08/14/23 08/14/23 Range/Units 13:25 05:00 WBC (4.0-10.5) x10^3/uL RBC (4.1-5.4) x10^6/uL Hgb (12.0-16.0) g/dL Hct (35-47) % MCV (78-100) fL MCH (26-32) pg MCHC (32-36) g/dL RDW (11.5-14.0) % Plt Count (150-450) x10^3/uL MPV (7.5-11.0) fL Gran % (36.0-66.0) % Immature Gran % (Auto) (0.00-0.4) % Nucleat RBC Rel Count (0.00-0.1) % Eos # (Auto) (0-0.5) x10^3/uL Immature Gran # (Auto) (0.00-0.03) x10^3u/L Absolute Lymphs (auto) (1.0-4.6) x10^3/uL Absolute Monos (auto) (0.0-1.3) x10^3/uL Absolute Nucleated RBC (0.00-0.01) x10^3u/L Lymphocytes % (24.0-44.0) % Monocytes % (0.0-12.0) % Eosinophils % (0.00-5.0) % Basophils % (0.0-0.4) % Absolute Granulocytes (1.4-6.9) x10^3/uL Segmented Neutrophils (36.0-66.0) % Lymphocytes (Manual) (24-44) % Monocytes (Manual) (0.0-12.0) % Basophils # (0-0.4) x10^3/uL Nucleated RBCs % Hypochromia Platelet Estimate (NORMAL) RBC Morphology Polychromasia Anisocytosis Microcytosis PT (9.4-12.5) SECONDS INR (0.8-3.0) Sodium (137-145) mmol/L Potassium (3.5-5.1) mmol/L Chloride (98-107) mmol/L Carbon Dioxide (22-30) mmol/L Anion Gap (5-15) MEQ/L BUN (7-17) mg/dL Creatinine (0.52-1.04) mg/dL Estimated GFR ML/MIN Glucose (74-106) mg/dL Lactic Acid 2.5 H (0.4-2.0) Calcium (8.4-10.2) mg/dL Magnesium (1.6-2.3) mg/dL Total Bilirubin (0.2-1.3) mg/dL AST (14-36) U/L ALT (0-35) U/L Alkaline Phosphatase (38-126) U/L Troponin I 0.041 H* (0.000-0.034) ng/mL NT-Pro-B Natriuret Pep (<300) pg/mL Serum Total Protein (6.3-8.2) g/dL Albumin (3.5-5.0) g/dL Influenza Type A Ag (NEGATIVE) Influenza Type B Ag (NEGATIVE) RSV (PCR) (NEGATIVE) SARS-CoV-2 (PCR) (NEGATIVE) ABO Group Rh Factor Antibody Screen (NEGATIVE) Crossmatch (COMPATIBLE) - Progress Progress: improved, re-examined Air Movement: fair, good Progress Note: 08/14/23 16:50 67 years old is evaluated for increasing wheezing/shortness of breath, cough and generalized weakness along with increasing pain right flank area. She is given a breathing treatment. On reevaluation she is feeling better. She is on room air around 96%. She has I believe RSV bronchiolitis. Patient hemoglobin was 13 few days ago and today is 7. I believe patient has been bleeding in the abdominal wall. I have discussed with patient about risk and benefits of transfusion and she wants to go ahead with transfusion. We will transfuse 2 units. Chemistries fairly okay. Patient is not in any distress, not hypotensive or tachycardic. Blood transfusion is started in the ER. Patient RSV still positive. Patient INR is 3.68 and I have given a dose of vitamin K. Obtained CT chest abdomen pelvis which showed no acute infiltrative process in the chest and right-sided abdominal wall hematoma. I have shared the results of workup with patient and family and plan of admission which they understand and agree. Discussed with Dr. Escobar and patient is being admitted. Blood Culture(s) Obtained: No Antibiotics given: No Discussed with : Stacy Counseled pt/family regarding: lab results, diagnosis, rad results Medical Desision Making - Discussion of managment Care discussed with:: hospitalist Reviewed:: Test results Agreed on:: Treatment plan Will see patient: in hospital (Dr. Escobar) - Risk of complications The pt has a high risk of morbidity or mortality based on: Decision regarding hospitilization or escalation of hosp level of care - Departure Departure Disposition: Observation Clinical Impression: Hematoma of abdominal wall, RSV bronchiolitis, Elevated INR Condition: Fair Critical Care Time: No
[2023-08-14] MEDS ORDERED: Vitamin K 10 MG/ML PO ONE (14:45)
[2023-08-14 14:48] LABS: INFLUENZA A NEGATIVE (NEGATIVE); INFLUENZA B NEGATIVE (NEGATIVE); SARS-CoV-2 Xpert Express NEGATIVE (NEGATIVE)
[2023-08-14] MEDS ORDERED: Vitamin K 10 MG/ML ONE (14:48)
[2023-08-14 14:50] LABS: RESPIRATORY SYNCTIAL VIRUS POSITIVE (NEGATIVE)
[2023-08-14 15:28] LABS: Lymphocytes 14 % (24-44); Monocyte 8 % (0.0-12.0); Neutrophils 78 % (36.0-66.0); Nucleated Red Blood Cell 2 %; Platelet Estimate NORMAL (NORMAL); Total Cells Counted 100
[2023-08-14 15:30] LABS: ANISOCYTOSIS 1+; Hypochromia 1+; Polychromasia 1+
[2023-08-14 15:31] LABS: Microcytosis 1+
[2023-08-14] MEDS ORDERED: XYLOCAINE 1% HCL 20 ML MDV ONE (15:46)
--- NOTE | 2023-08-14 15:47 | XRAY ---
Indication: Short of breath and cough. Right lateral pain and swelling. Multiple contiguous axial images obtained through the chest without contrast. Comparison: August 11, 2023 Lungs again demonstrates minimal dependent atelectasis without focal infiltrate, consolidation, or effusion. Heart not enlarged again with minimal coronary calcifications. Aorta again minimally arteriosclerotic without aneurysm. Stable paratracheal/right hilar calcified nodes. No pathologic mediastinal lymphadenopathy. Stable moderate-sized hiatal hernia with partial intrathoracic stomach. Bony thorax intact again with minimal/mild degenerative changes throughout the spine. CT abdomen/pelvis reported separately. Impression: No change compared to ER CT chest exam 3 days ago. Again chronic findings including hiatal hernia with partial intrathoracic stomach, arteriosclerotic disease, degenerative spondylosis, and old granulomatous disease. No new/acute findings on this noncontrast exam.
--- NOTE | 2023-08-14 15:53 | XRAY ---
Indication: Right lateral pain and swelling. Hematoma. Multiple contiguous axial images obtained through abdomen and pelvis without contrast. Comparison: January 17, 2018 CT chest reported separately. Study is limited by patient body habitus and does not completely include the entire left abdomen/pelvis. Far right lateral mid abdomen demonstrates new subcutaneous fluid collection midaxillary line measuring at least 8.6 x 11.0 x 7.3 cm in greatest AP, transverse, and CC projections respectively with surrounding fatty infiltration. Finding presumed known hematoma. Lack of IV contrast precludes evaluation for inflammatory/infectious process. Noncontrasted stomach and bowel loops appear nonobstructed. Interval cholecystectomy. Again a few tiny splenic calcified granulomas. No free fluid/air. Remaining liver, pancreas, spleen, adrenal glands, kidneys, ureters, bladder, and uterus are unremarkable for noncontrast exam. Again minimal aortoiliac calcifications without AAA. Osseous structures intact. There remains mild/moderate degenerative changes throughout visualized spine and minimal levoscoliosis centered at L4. Impression: 1. New right flank subcutaneous fluid collection as detailed presumed known hematoma. Inflammatory/infectious process not completely excluded on this noncontrast exam. 2. Again chronic findings including arteriosclerotic disease, chronic bony findings, and old granulomatous disease.
[2023-08-14 17:05] LABS: ABO TYPING O; Antibody Screen NEGATIVE (NEGATIVE); RH TYPING POSITIVE
[2023-08-14 17:08] LABS: CROSS MATCH (PRBC) COMPATIBLE (COMPATIBLE)
--- NOTE | 2023-08-14 17:30 | PCM.HP ---
History of Present Illness - Chief Complaint Chief Complaint: bronchitis Date: 08/14/23 History of Present Illness: is a 67 year old female with PMHX of HTN, COPD, OA, Fibromyalgia, chronic morbid obesity, chronic headaches, RA, anxiety, Stage 3 CKD, spondylos is, and O2 2LNC at [facility]. Pt came in to the ER with complaints of increased SOB, generalized weakness, fatigue and tiredness since Friday. She gets short of breath with minimal activity. Patient also reports increasing pain on the right side of her belly with a bruising. No nausea or vomiting reported. Denies any hemoptysis/hematochezia/hematemesis. No fever or chills reported. Reports having wheezing which is a little worse than usual. Feeling lightheaded with standing. Patient was seen in ER Friday and dx with RSV, Bronchitis, Sinusitis and prescribed sterioids, nebulizer and atbx. Hgb was found to be 7.0 and blood transfusion ordered in ER. It is thought to be r/t elevated PT/INR on warfarin and hematoma she obatined when being transferred to cot Friday in radiology. Will keep pt overnight and most likely d/c tomorrow. She is on RA at 97%. Will continue IVF, breathing txs, abd finish blood products. - Review of Systems Constitutional: No Fever, No Chills Eyes: No Symptoms Ears, Nose, & Throat: No Symptoms Respiratory: Cough, Short Of Breath, Wheezing Cardiac: No Chest Pain, No Edema, No Syncope Abdominal/Gastrointestinal: Abdominal Pain (at site of hematoma), No Nausea, No Vomiting, No Diarrhea Genitourinary Symptoms: No Dysuria Musculoskeletal: No Back Pain, No Neck Pain Skin: No Rash Neurological: No Dizziness, No Focal Weakness, No Sensory Changes Psychological: No Symptoms Endocrine: No Symptoms Hematologic/Lymphatic: No Symptoms Immunological/Allergic: No Symptoms Medications & Allergies Home Medications: Home Medication List Alendronate Sodium 35 mg PO WEEKLY 10/21/15 [History Confirmed 08/14/23] Furosemide 20 mg [Lasix 20 mg] 40 mg PO DAILY 05/03/16 [History Confirmed 08/14/23] Potassium Chloride Tab* [Klor Con] 20 meq PO QAM 07/02/16 [History Confirmed 08/14/23] Gabapentin [Neurontin ] 800 mg PO TID 11/10/17 [History Confirmed 08/14/23] Warfarin Sodium [Coumadin] 4 mg PO DAILY 01/17/18 [History Confirmed 08/14/23] Albuterol Sulfate 1 neb IH Q6H 07/01/20 [History Confirmed 08/14/23] Albuterol Sulfate [Albuterol Sulfate Hfa] 2 puff IH QID 07/01/20 [History Confirmed 08/14/23] Atorvastatin Calcium 10 mg PO QPM 07/01/20 [History Confirmed 08/14/23] Cholecalciferol (Vitamin D3) [Vitamin D] 3,000 tab PO DAILY 07/01/20 [History Confirmed 08/14/23] Duloxetine HCl 60 mg PO QAM 07/01/20 [History Confirmed 08/14/23] Magnesium Oxide 400 mg [Mag-Ox 400] 400 mg PO DAILY 07/01/20 [History Confirmed 08/14/23] PANTOPRAZOLE 40 mg Tablet [Protonix 40MG Tablet] 80 mg PO DAILY 07/01/20 [History Confirmed 08/14/23] Benazepril HCl 5 mg PO DAILY 08/14/23 [History Confirmed 08/14/23] Calcium Carbonate [Calcium] 1,200 mg PO DAILY 08/14/23 [History Confirmed 08/14/23] Cetirizine HCl [Zyrtec] 10 mg PO DAILY PRN PRN 08/14/23 [History Confirmed 08/14/23] Hydroxychloroquine Sulfate [Plaquenil] 200 mg PO DAILY 08/14/23 [History Confirmed 08/14/23] Levothyroxine Sodium 88 Mcg [Synthroid 88 Mcg] 88 mcg PO DAILY 08/14/23 [History Confirmed 08/14/23] Meclizine HCl 25 mg [Antivert 25 mg] 25 mg PO TIDPRN PRN 08/14/23 [History Confirmed 08/14/23] Melatonin 10 mg PO HS 08/14/23 [History Confirmed 08/14/23] Metoprolol Succinate 25 mg Xl* [Toprol-Xl 25MG Tablets] 25 mg PO DAILY 08/14/23 [History Confirmed 08/14/23] Semaglutide [Ozempic] 0.5 mg SQ WEEKLY 08/14/23 [History Confirmed 08/14/23] Allergies/Adverse Reactions: Allergies Allergy/AdvReac Type Severity Reaction Status Date / Time Latex, Natural Rubber Allergy Intermediate Verified 08/20/22 16:34 methotrexate Allergy Intermediate Verified 08/20/22 16:34 - Past Medical History Past Medical History: Yes Neurological History: No Pertinent History ENT History: No Pertinent History Cardiac History: Hypertension Respiratory History: COPD Endocrine Medical History: No Pertinent History Musculoskelatal History: Fibromyalgia, Osteoarthritis, Rheumatoid Arthritis GI Medical History: No Pertinent History History: No Pertinent History Pyscho-Social History: Anxiety Comment: 2L O2 AT NIGHT AND SOMETIMES DURING THE DAY. CONSTANT HEADACHE. 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 ALSO TRIED A TENS WITHOUT MUCH RELIEF. STAGE 3 KIDNEY DISEASE. MRI OF THE BACK IN THE PAST, DX WITH SPONDYLOSIS. LB SURGERY IN 2006, L SHOULDER SURGERY 2021, R SHOULDER SURGERY 2011, R FOOT SURGERY 2011. OSTEOPENIA, HISTORY OF SI JOINT PAIN. - Past Surgical History Past Surgical History: Yes Neuro Surgical History: No Pertinent History Cardiac History: No Pertinent History Respiratory Surgery: No Pertinent History GI Surgical History: Cholecystectomy Genitourinary Surgical Hx: No Pertinent History Musculskeletal Surgical Hx: Orthopedic Surgery Female Surgical History: No Pertinent History Other Surgical History: rt shoulder/foot. back surgery. - Social History Smoking Status: Never smoker Exposure to second hand smoke: Yes ( quit 1979) Alcohol: None Drug Use: none - Physical Exam Vital Signs: Vital Signs - 24 hr Temp Pulse Resp BP BP Pulse Ox 08/14/23 17:00 116/63 98 08/14/23 16:54 96 08/14/23 16:31 108/55 99 08/14/23 16:01 97 08/14/23 15:31 95/46 98 08/14/23 14:30 110/70 97 08/14/23 14:00 79 17 119/65 96 08/14/23 13:31 78 10 L 95/66 98 08/14/23 13:29 82 25 H 95 08/14/23 12:57 97.8 F 88 28 H 124/62 97 General Appearance: no apparent distress, alert, obese Neurologic Exam: alert, oriented x 3, cooperative, normal mood/affect, nml cerebellar function, nml station & gait, sensation nml, No motor deficits Eye Exam: PERRL/EOMI, eyes nml inspection Ears, Nose, Throat Exam: normal ENT inspection, TMs normal, pharynx normal, moist mucous membranes Neck Exam: normal inspection, non-tender, supple, full range of motion Respiratory Exam: wheezing, No respiratory distress Cardiovascular Exam: regular rate/rhythm, normal heart sounds, normal peripheral pulses Gastrointestinal/Abdomen Exam: soft, normal bowel sounds, other (hematoma of abd), No tenderness, No mass Back Exam: normal inspection, normal range of motion, No CVA tenderness, No vertebral tenderness Extremity Exam: normal inspection, normal range of motion, pelvis stable Skin Exam: normal color, warm, dry, No rash Lymphatic Exam: No adenopathy Results - Labs Lab/Micro Results: Lab Results-Last 24 Hours 08/14/23 08/14/23 08/14/23 Range/Units 13:25 13:40 13:40 WBC 12.1 H (4.0-10.5) x10^3/uL RBC 2.52 L (4.1-5.4) x10^6/uL Hgb 7.0 L* (12.0-16.0) g/dL Hct 22.9 L (35-47) % MCV 90.9 (78-100) fL MCH 27.8 (26-32) pg MCHC 30.6 L (32-36) g/dL RDW 13.5 (11.5-14.0) % Plt Count 383 (150-450) x10^3/uL MPV 10.1 (7.5-11.0) fL Gran % 58.2 (36.0-66.0) % Immature Gran % (Auto) 2.3 H (0.00-0.4) % Nucleat RBC Rel Count 3.4 H (0.00-0.1) % Eos # (Auto) 0.19 (0-0.5) x10^3/uL Immature Gran # (Auto) 0.28 H (0.00-0.03) x10^3u/L Absolute Lymphs (auto) 3.50 (1.0-4.6) x10^3/uL Absolute Monos (auto) 1.04 (0.0-1.3) x10^3/uL Absolute Nucleated RBC 0.41 H (0.00-0.01) x10^3u/L Lymphocytes % 28.9 (24.0-44.0) % Monocytes % 8.6 (0.0-12.0) % Eosinophils % 1.6 (0.00-5.0) % Basophils % 0.4 (0.0-0.4) % Absolute Granulocytes 7.05 H (1.4-6.9) x10^3/uL Segmented Neutrophils 78 H (36.0-66.0) % Lymphocytes (Manual) 14 L (24-44) % Monocytes (Manual) 8 (0.0-12.0) % Basophils # 0.05 (0-0.4) x10^3/uL Nucleated RBCs 2 % Hypochromia 1+ Platelet Estimate NORMAL (NORMAL) RBC Morphology ABNORMAL Polychromasia 1+ Anisocytosis 1+ Microcytosis 1+ PT (9.4-12.5) SECONDS INR (0.8-3.0) Sodium 136 L (137-145) mmol/L Potassium 4.0 (3.5-5.1) mmol/L Chloride 106 (98-107) mmol/L Carbon Dioxide 23 (22-30) mmol/L Anion Gap 11.1 (5-15) MEQ/L BUN 12 (7-17) mg/dL Creatinine 1.13 H (0.52-1.04) mg/dL Estimated GFR 53.0 ML/MIN Glucose 94 (74-106) mg/dL Lactic Acid 2.5 H (0.4-2.0) Calcium 8.4 (8.4-10.2) mg/dL Magnesium 2.0 (1.6-2.3) mg/dL Total Bilirubin 0.70 (0.2-1.3) mg/dL AST 54 H (14-36) U/L ALT 18 (0-35) U/L Alkaline Phosphatase 60 (38-126) U/L Troponin I (0.000-0.034) ng/mL NT-Pro-B Natriuret Pep 1540 (<300) pg/mL Serum Total Protein 6.4 (6.3-8.2) g/dL Albumin 3.3 L (3.5-5.0) g/dL Influenza Type A Ag (NEGATIVE) Influenza Type B Ag (NEGATIVE) RSV (PCR) (NEGATIVE) SARS-CoV-2 (PCR) (NEGATIVE) ABO Group Rh Factor Antibody Screen (NEGATIVE) Crossmatch (COMPATIBLE) 08/14/23 08/14/23 08/14/23 Range/Units 13:40 13:44 13:44 WBC (4.0-10.5) x10^3/uL RBC (4.1-5.4) x10^6/uL Hgb (12.0-16.0) g/dL Hct (35-47) % MCV (78-100) fL MCH (26-32) pg MCHC (32-36) g/dL RDW (11.5-14.0) % Plt Count (150-450) x10^3/uL MPV (7.5-11.0) fL Gran % (36.0-66.0) % Immature Gran % (Auto) (0.00-0.4) % Nucleat RBC Rel Count (0.00-0.1) % Eos # (Auto) (0-0.5) x10^3/uL Immature Gran # (Auto) (0.00-0.03) x10^3u/L Absolute Lymphs (auto) (1.0-4.6) x10^3/uL Absolute Monos (auto) (0.0-1.3) x10^3/uL Absolute Nucleated RBC (0.00-0.01) x10^3u/L Lymphocytes % (24.0-44.0) % Monocytes % (0.0-12.0) % Eosinophils % (0.00-5.0) % Basophils % (0.0-0.4) % Absolute Granulocytes (1.4-6.9) x10^3/uL Segmented Neutrophils (36.0-66.0) % Lymphocytes (Manual) (24-44) % Monocytes (Manual) (0.0-12.0) % Basophils # (0-0.4) x10^3/uL Nucleated RBCs % Hypochromia Platelet Estimate (NORMAL) RBC Morphology Polychromasia Anisocytosis Microcytosis PT 36.8 H (9.4-12.5) SECONDS INR 3.68 H (0.8-3.0) Sodium (137-145) mmol/L Potassium (3.5-5.1) mmol/L Chloride (98-107) mmol/L Carbon Dioxide (22-30) mmol/L Anion Gap (5-15) MEQ/L BUN (7-17) mg/dL Creatinine (0.52-1.04) mg/dL Estimated GFR ML/MIN Glucose (74-106) mg/dL Lactic Acid (0.4-2.0) Calcium (8.4-10.2) mg/dL Magnesium (1.6-2.3) mg/dL Total Bilirubin (0.2-1.3) mg/dL AST (14-36) U/L ALT (0-35) U/L Alkaline Phosphatase (38-126) U/L Troponin I 0.045 H* (0.000-0.034) ng/mL NT-Pro-B Natriuret Pep (<300) pg/mL Serum Total Protein (6.3-8.2) g/dL Albumin (3.5-5.0) g/dL Influenza Type A Ag NEGATIVE (NEGATIVE) Influenza Type B Ag NEGATIVE (NEGATIVE) RSV (PCR) POSITIVE (NEGATIVE) SARS-CoV-2 (PCR) NEGATIVE (NEGATIVE) ABO Group Rh Factor Antibody Screen (NEGATIVE) Crossmatch (COMPATIBLE) 08/14/23 08/14/23 08/14/23 Range/Units 15:26 16:00 16:00 WBC (4.0-10.5) x10^3/uL RBC (4.1-5.4) x10^6/uL Hgb (12.0-16.0) g/dL Hct (35-47) % MCV (78-100) fL MCH (26-32) pg MCHC (32-36) g/dL RDW (11.5-14.0) % Plt Count (150-450) x10^3/uL MPV (7.5-11.0) fL Gran % (36.0-66.0) % Immature Gran % (Auto) (0.00-0.4) % Nucleat RBC Rel Count (0.00-0.1) % Eos # (Auto) (0-0.5) x10^3/uL Immature Gran # (Auto) (0.00-0.03) x10^3u/L Absolute Lymphs (auto) (1.0-4.6) x10^3/uL Absolute Monos (auto) (0.0-1.3) x10^3/uL Absolute Nucleated RBC (0.00-0.01) x10^3u/L Lymphocytes % (24.0-44.0) % Monocytes % (0.0-12.0) % Eosinophils % (0.00-5.0) % Basophils % (0.0-0.4) % Absolute Granulocytes (1.4-6.9) x10^3/uL Segmented Neutrophils (36.0-66.0) % Lymphocytes (Manual) (24-44) % Monocytes (Manual) (0.0-12.0) % Basophils # (0-0.4) x10^3/uL Nucleated RBCs % Hypochromia Platelet Estimate (NORMAL) RBC Morphology Polychromasia Anisocytosis Microcytosis PT (9.4-12.5) SECONDS INR (0.8-3.0) Sodium (137-145) mmol/L Potassium (3.5-5.1) mmol/L Chloride (98-107) mmol/L Carbon Dioxide (22-30) mmol/L Anion Gap (5-15) MEQ/L BUN (7-17) mg/dL Creatinine (0.52-1.04) mg/dL Estimated GFR ML/MIN Glucose (74-106) mg/dL Lactic Acid 1.9 (0.4-2.0) Calcium (8.4-10.2) mg/dL Magnesium (1.6-2.3) mg/dL Total Bilirubin (0.2-1.3) mg/dL AST (14-36) U/L ALT (0-35) U/L Alkaline Phosphatase (38-126) U/L Troponin I (0.000-0.034) ng/mL NT-Pro-B Natriuret Pep (<300) pg/mL Serum Total Protein (6.3-8.2) g/dL Albumin (3.5-5.0) g/dL Influenza Type A Ag (NEGATIVE) Influenza Type B Ag (NEGATIVE) RSV (PCR) (NEGATIVE) SARS-CoV-2 (PCR) (NEGATIVE) ABO Group O Rh Factor POSITIVE Antibody Screen NEGATIVE (NEGATIVE) Crossmatch COMPATIBLE (COMPATIBLE) 08/14/23 Range/Units 16:00 WBC (4.0-10.5) x10^3/uL RBC (4.1-5.4) x10^6/uL Hgb (12.0-16.0) g/dL Hct (35-47) % MCV (78-100) fL MCH (26-32) pg MCHC (32-36) g/dL RDW (11.5-14.0) % Plt Count (150-450) x10^3/uL MPV (7.5-11.0) fL Gran % (36.0-66.0) % Immature Gran % (Auto) (0.00-0.4) % Nucleat RBC Rel Count (0.00-0.1) % Eos # (Auto) (0-0.5) x10^3/uL Immature Gran # (Auto) (0.00-0.03) x10^3u/L Absolute Lymphs (auto) (1.0-4.6) x10^3/uL Absolute Monos (auto) (0.0-1.3) x10^3/uL Absolute Nucleated RBC (0.00-0.01) x10^3u/L Lymphocytes % (24.0-44.0) % Monocytes % (0.0-12.0) % Eosinophils % (0.00-5.0) % Basophils % (0.0-0.4) % Absolute Granulocytes (1.4-6.9) x10^3/uL Segmented Neutrophils (36.0-66.0) % Lymphocytes (Manual) (24-44) % Monocytes (Manual) (0.0-12.0) % Basophils # (0-0.4) x10^3/uL Nucleated RBCs % Hypochromia Platelet Estimate (NORMAL) RBC Morphology Polychromasia Anisocytosis Microcytosis PT (9.4-12.5) SECONDS INR (0.8-3.0) Sodium (137-145) mmol/L Potassium (3.5-5.1) mmol/L Chloride (98-107) mmol/L Carbon Dioxide (22-30) mmol/L Anion Gap (5-15) MEQ/L BUN (7-17) mg/dL Creatinine (0.52-1.04) mg/dL Estimated GFR ML/MIN Glucose (74-106) mg/dL Lactic Acid (0.4-2.0) Calcium (8.4-10.2) mg/dL Magnesium (1.6-2.3) mg/dL Total Bilirubin (0.2-1.3) mg/dL AST (14-36) U/L ALT (0-35) U/L Alkaline Phosphatase (38-126) U/L Troponin I (0.000-0.034) ng/mL NT-Pro-B Natriuret Pep (<300) pg/mL Serum Total Protein (6.3-8.2) g/dL Albumin (3.5-5.0) g/dL Influenza Type A Ag (NEGATIVE) Influenza Type B Ag (NEGATIVE) RSV (PCR) (NEGATIVE) SARS-CoV-2 (PCR) (NEGATIVE) ABO Group Rh Factor Antibody Screen (NEGATIVE) Crossmatch COMPATIBLE (COMPATIBLE) - Radiology Impressions Radiology Exams & Impressions: Radiology Procedures Category Date Time Status ABDOMEN AND PELVIS W/0 CONTRAS [CT] Stat Exams 08/14/23 13:18 Completed CHEST WITHOUT CONTRAST [CT] Stat Exams 08/14/23 13:17 Completed - Other Procedures and Tests Respiratory Therapy 08/14/23 17:12 Oxygen Nasal Cannula 2 lpm Respiratory Therapy Consult ONCE Assessment/Plan (1) RSV bronchiolitis Current Visit: Yes Status: Acute Assessment & Plan: - Chest CT Impression: No change compared to ER CT chest exam 3 days ago. Again chronic findings including hiatal hernia with partial intrathoracic stomach, arteriosclerotic disease, degenerative spondylosis, and old granulomatous disease. No new/acute findings on this noncontrast exam. - edwin Bowie - RA 98% - IVF - supportive care - IS - Cough drops - RT eval and treat Code(s): J21.0 - ACUTE BRONCHIOLITIS DUE TO RESPIRATORY SYNCYTIAL VIRUS (2) Elevated INR Current Visit: Yes Status: Acute Assessment & Plan: - - VItamin K gave in ER Code(s): R79.1 - ABNORMAL COAGULATION PROFILE (3) Hematoma of abdominal wall Current Visit: Yes Status: Acute Assessment & Plan: - CT abd. 08/14/23: Impression: 1. New right flank subcutaneous fluid collection as detailed presumed known hematoma. Inflammatory/infectious process not completely excluded on this noncontrast exam. 2. Again chronic findings including arteriosclerotic disease, chronic bony findings, and old granulomatous disease. - Hold warfarin Code(s): S30.1XXA - CONTUSION OF ABDOMINAL WALL, INITIAL ENCOUNTER (4) Obesity, Class III, BMI 40-49.9 (morbid obesity) Current Visit: Yes Status: Chronic Assessment & Plan: - Advised diet and exercise control Code(s): E66.01 - MORBID (SEVERE) OBESITY DUE TO EXCESS CALORIES (5) Anemia Current Visit: Yes Status: Acute Qualifiers: Anemia type: other cause Assessment & Plan: - acute 2:2 elevated PT/INR, hematoma, CKD - 2 units PRBC ordered in ER - Type and screen done in ER - Hgb 7.0- trend - Tele Code(s): D64.9 - ANEMIA, UNSPECIFIED (6) Chronic anticoagulation Current Visit: Yes Status: Acute Assessment & Plan: - For repeat blood clots in legs - Warfarin- held - PT 36.8, INR 3.68 - VItamin K gave in ER - pharmacy to dose - trend labs daily Code(s): Z79.01 - FPC (CURRENT) USE OF ANTICOAGULANTS (7) Acute on chronic renal failure Current Visit: Yes Status: Acute Assessment & Plan: - IVF started in ER NS @ 125ml/hr - near baseline creat Code(s): N17.9 - ACUTE KIDNEY FAILURE, UNSPECIFIED; N18.9 - CHRONIC KIDNEY DISEASE, UNSPECIFIED (8) Weakness Current Visit: Yes Status: Acute Assessment & Plan: - PT/OT eval - 2:2 anemia and RSV - Consider rehab Code(s): R53.1 - WEAKNESS (9) Elevated troponin Current Visit: Yes Status: Acute Assessment & Plan: - trop 0.045- trend - denies CP - EKG reviewed will repeat in AM VTE: SCD PPI: pantoprazole Next of Kin: Spouse, Anthony Crespo [phone] Code status: SCO/ DNR Code(s): R79.89 - OTHER SPECIFIED ABNORMAL FINDINGS OF BLOOD CHEMISTRY
[2023-08-14] MEDS ORDERED: PHARMACY DOSING REQUEST MC ONE ×2 (17:43→18:42)
[2023-08-14] MEDS ORDERED: Zofran 4 MG/2 ML VIAL IV PRN (17:50)
[2023-08-14] MEDS ORDERED: TYLENOL 325 MG PO PRN (17:50)
[2023-08-14] MEDS: DUONEB 0.5-3 MG/3 ml Neb IH SCH (18:42)
[2023-08-14] MEDS ORDERED: NON-FORMULARY ITEM (Alendronate Sodium [Alendronate Sodium] 35 MG Tablet) PO SCH (18:45)
[2023-08-14] MEDS ORDERED: ANTIVERT 25 MG PO PRN (18:45)
[2023-08-14] MEDS ORDERED: NON-FORMULARY ITEM (Cetirizine Hcl [Zyrtec] 10 MG Capsule) PO PRN (18:45)
[2023-08-14] MEDS: ADVAIR 500-50 DISKUS IH SCH (20:23)
[2023-08-14] MEDS ORDERED: CEPACOL SORE THROAT LOZENGE PO PRN (20:33)
[2023-08-14] MEDS ORDERED: Coumadin 2 MG PO SCH (20:45)
[2023-08-14] MEDS ORDERED: COUMADIN PO ONE (21:00)
[2023-08-14] MEDS ORDERED: MELATONIN PO ONE (21:32)
[2023-08-14] MEDS ORDERED: Zocor 10MG ONE (21:33)
[2023-08-14] MEDS: Zocor 10MG PO SCH (21:55)
[2023-08-14] MEDS: Neurontin PO SCH (21:56)
[2023-08-14] MEDS ORDERED: VENTOLIN COMMON CANISTER IH SCH (22:00)
[2023-08-14] MEDS ORDERED: NON-FORMULARY ITEM (Atorvastatin Calcium [Atorvastatin Calcium] 10 MG Tablet) PO SCH (22:00)
[2023-08-14] MEDS ORDERED: NON-FORMULARY ITEM (Melatonin [Melatonin] 10 MG Tablet) PO SCH (22:00)
[2023-08-14] MEDS: MELATONIN PO SCH (22:33)
[2023-08-15] MEDS: DUONEB 0.5-3 MG/3 ml Neb IH SCH ×4 (00:58→19:10)
[2023-08-15 05:14] LABS: Hematocrit 29.3 % (35-47); Hemoglobin 8.9 g/dL (12.0-16.0); Mean Cell Volume 88.3 fL (78-100); Mean Corpuscular Hemoglobin 26.8 pg (26-32); Mean Corpuscular Hgb Concent. 30.4 g/dL (32-36); Mean Platelet Volume 9.9 fL (7.5-11.0); Platelet Count 321 x10^3/uL (150-450); Red Blood Count 3.32 x10^6/uL (4.1-5.4); White Blood Count 9.2 x10^3/uL (4.0-10.5)
[2023-08-15 05:36] LABS: INR 1.54 (0.8-3.0); PROTIME 16.3 SECONDS (9.4-12.5)
[2023-08-15 05:39] LABS: ALBUMIN 2.9 g/dL (3.5-5.0); ANION GAP 8.6 MEQ/L (5-15); BILIRUBIN,TOTAL 0.7 mg/dL (0.2-1.3); Calcium 8.2 mg/dL (8.4-10.2); Creatinine 1 1.07 mg/dL (0.52-1.04); EST GLOMERULAR FILTRATION RATE 56.6 ML/MIN; Potassium 3.7 mmol/L (3.5-5.1)
[2023-08-15] MEDS: ADVAIR 500-50 DISKUS IH SCH (07:00)
[2023-08-15] MEDS ORDERED: DUONEB 0.5-3 MG/3 ml Neb IH ONE (07:14)
[2023-08-15] MEDS ORDERED: CLARITIN 10 MG PO PRN (07:20)
[2023-08-15] MEDS ORDERED: LASIX 20 MG PO SCH (10:00)
[2023-08-15] MEDS ORDERED: NON-FORMULARY ITEM (Hydroxychloroquine Sulfate [Plaquenil] 200 MG Tablet) PO SCH (10:00)
[2023-08-15] MEDS ORDERED: BENAZEPRIL HCL 5 MG PO SCH (10:00)
[2023-08-15] MEDS ORDERED: NON-FORMULARY ITEM (Calcium Carbonate [Calcium] 600 MG Tablet) PO SCH (10:00)
[2023-08-15] MEDS: VITAMIN D PO SCH (10:43)
[2023-08-15] MEDS: Klor Con PO SCH (10:44)
[2023-08-15] MEDS: Neurontin PO SCH ×3 (10:44→23:03)
[2023-08-15] MEDS: Cymbalta 30 MG Capsule PO SCH (10:44)
[2023-08-15] MEDS: Protonix 40MG Tablet PO SCH (10:44)
[2023-08-15] MEDS: Calcium 500MG W/Vit D Tablet PO SCH (10:44)
[2023-08-15] MEDS: Lasix 40 MG PO SCH (10:45)
[2023-08-15] MEDS: MAG-OX 400 PO SCH (10:45)
[2023-08-15] MEDS: NON-FORMULARY ITEM PO SCH (10:45)
[2023-08-15] MEDS: SYNTHROID 88 MCG PO SCH (10:46)
[2023-08-15] MEDS: solu-MEDROL 40 MG, Sterile H2O 10 ml 1 ML IV SCH ×4 (10:46→23:03)
[2023-08-15] MEDS: Lotensin PO SCH (11:31)
[2023-08-15] MEDS: Toprol-Xl 25MG Tablets PO SCH (11:32)
--- NOTE | 2023-08-15 12:33 | PCM.NOTE ---
Date and Time: 08/15/23 1220 Subjective Assessment: 08/14/23 is a 67 year old female with PMHX of HTN, COPD, OA, Fibromyalgia, chronic morbid obesity, chronic headaches, RA, anxiety, Stage 3 CKD, spondylosis, and O2 2LNC at [facility]. Pt came in to the ER with complaints of increased SOB, generalized weakness, fatigue and tiredness since Friday. She gets short of breath with minimal activity. Patient also reports increasing pain on the right side of her belly with a bruising. No nausea or vomiting reported. Denies any hemoptysis/hematochezia/hematemesis. No fever or chills reported. Reports having wheezing which is a little worse than usual. Feeling lightheaded with standing. Patient was seen in ER Friday and dx with RSV, Bronchitis, Sinusitis and prescribed sterioids, nebulizer and atbx. Hgb was found to be 7.0 and blood transfusion ordered in ER. It is thought to be r/t elevated PT/INR on warfarin and hematoma she obatined when being transferred to cot Friday in radiology. Will keep pt overnight and most likely d/c tomorrow. She is on RA at 97%. Will continue IVF, breathing txs, abd finish blood products. 08/15/23 Pt resting in bed. She was able to get up with PT in the room and walk and did well. She has increased wheezing today. Will start steroids and antibiotics for COPD exacerbation. She has some diarrhea today will test for c-diff d/t recent antibiotic use. Will start probiotics. Hgb is stable at 8.9 after 2 units of PRBC yesterday. Will continue to monitor hgb. Pharmacy managing warfarin and discussed with Dr. Nascimento her PCP as he manages this OP. He advised to continue to hold for now and monitor HGB. However this will need to be restarted to her hx of multiple blood clots in legs. Pt wanting to d/c but explained she should at least wait one more day. She denies CP, N/V. - Review of Systems Constitutional: No Fever, No Chills Eyes: No Symptoms Ears, Nose, & Throat: No Symptoms Respiratory: Cough, Short Of Breath, Wheezing Cardiac: No Chest Pain, No Edema, No Syncope Abdominal/Gastrointestinal: Abdominal Pain, Other ((at site of hematoma),), No Nausea, No Vomiting, No Diarrhea Genitourinary Symptoms: No Dysuria Musculoskeletal: No Back Pain, No Neck Pain Skin: No Rash Neurological: No Dizziness, No Focal Weakness, No Sensory Changes Psychological: No Symptoms Endocrine: No Symptoms Hematologic/Lymphatic: No Symptoms Immunological/Allergic: No Symptoms Objective Exam General Appearance: no apparent distress, alert, obese Neurologic Exam: alert, oriented x 3, cooperative, normal mood/affect, nml cerebellar function, sensation nml, No motor deficits Skin Exam: normal color, warm, dry Eye Exam: PERRL, EOMI, eyes nml inspection Ears, Nose, Throat Exam: normal ENT inspection, pharynx normal, moist mucous membranes Neck Exam: normal inspection, non-tender, supple, full range of motion Respiratory Exam: wheezing, No respiratory distress Cardiovascular Exam: regular rate/rhythm, normal heart sounds Gastrointestinal/Abdomen Exam: soft, tenderness ((at site of hematoma),), No mass Extremity Exam: normal inspection, normal range of motion Back Exam: normal inspection, normal range of motion, No CVA tenderness, No vertebral tenderness Pelvic Exam: deferred Rectal Exam: deferred OBJECTIVE DATA Vital Signs: Vital Signs - 24 hr Temp Pulse Resp BP BP Pulse Ox 08/15/23 10:41 97.4 F 83 14 124/58 97 08/15/23 09:30 96 08/15/23 07:19 96.7 F 87 18 121/60 94 L 08/15/23 04:00 97.8 F 76 21 110/55 96 08/15/23 01:08 83 18 98 08/15/23 00:20 65 18 107/55 99 08/14/23 23:47 97.3 F 70 24 112/54 95 08/14/23 21:30 97.8 F 70 16 106/55 98 08/14/23 20:00 97.9 F 83 24 113/56 98 08/14/23 19:59 72 18 96 08/14/23 19:56 96 08/14/23 17:57 98.3 F 91 H 18 138/73 99 08/14/23 17:00 116/63 98 08/14/23 16:54 96 08/14/23 16:31 108/55 99 08/14/23 16:01 97 08/14/23 15:31 95/46 98 08/14/23 14:30 110/70 97 08/14/23 14:00 79 17 119/65 96 08/14/23 13:31 78 10 L 95/66 98 08/14/23 13:29 82 25 H 95 08/14/23 12:57 97.8 F 88 28 H 124/62 97 Pain Assessment - Last Documented Pain Intensity 5 Pain Scale Used 0-10 Pain Scale Intake and Output: Intake & Output 08/13/23 08/14/23 08/15/23 08/16/23 11:59 11:59 11:59 11:59 Intake Total 1362 Balance 1362 Weight 119.8 kg Lab Results: Lab Results-Last 24 Hours 08/14/23 08/14/23 08/14/23 Range/Units 05:00 13:25 13:40 WBC 12.1 H (4.0-10.5) x10^3/uL RBC 2.52 L (4.1-5.4) x10^6/uL Hgb 7.0 L* (12.0-16.0) g/dL Hct 22.9 L (35-47) % MCV 90.9 (78-100) fL MCH 27.8 (26-32) pg MCHC 30.6 L (32-36) g/dL RDW 13.5 (11.5-14.0) % Plt Count 383 (150-450) x10^3/uL MPV 10.1 (7.5-11.0) fL Gran % 58.2 (36.0-66.0) % Immature Gran % (Auto) 2.3 H (0.00-0.4) % Nucleat RBC Rel Count 3.4 H (0.00-0.1) % Eos # (Auto) 0.19 (0-0.5) x10^3/uL Immature Gran # (Auto) 0.28 H (0.00-0.03) x10^3u/L Absolute Lymphs (auto) 3.50 (1.0-4.6) x10^3/uL Absolute Monos (auto) 1.04 (0.0-1.3) x10^3/uL Absolute Nucleated RBC 0.41 H (0.00-0.01) x10^3u/L Lymphocytes % 28.9 (24.0-44.0) % Monocytes % 8.6 (0.0-12.0) % Eosinophils % 1.6 (0.00-5.0) % Basophils % 0.4 (0.0-0.4) % Absolute Granulocytes 7.05 H (1.4-6.9) x10^3/uL Segmented Neutrophils 78 H (36.0-66.0) % Lymphocytes (Manual) 14 L (24-44) % Monocytes (Manual) 8 (0.0-12.0) % Basophils # 0.05 (0-0.4) x10^3/uL Nucleated RBCs 2 % Hypochromia 1+ Platelet Estimate NORMAL (NORMAL) RBC Morphology ABNORMAL Polychromasia 1+ Anisocytosis 1+ Microcytosis 1+ PT (9.4-12.5) SECONDS INR (0.8-3.0) Sodium (137-145) mmol/L Potassium (3.5-5.1) mmol/L Chloride (98-107) mmol/L Carbon Dioxide (22-30) mmol/L Anion Gap (5-15) MEQ/L BUN (7-17) mg/dL Creatinine (0.52-1.04) mg/dL Estimated GFR ML/MIN Glucose (74-106) mg/dL Lactic Acid 2.5 H (0.4-2.0) Calcium (8.4-10.2) mg/dL Magnesium (1.6-2.3) mg/dL Total Bilirubin (0.2-1.3) mg/dL AST (14-36) U/L ALT (0-35) U/L Alkaline Phosphatase (38-126) U/L Troponin I 0.041 H* (0.000-0.034) ng/mL NT-Pro-B Natriuret Pep (<300) pg/mL Serum Total Protein (6.3-8.2) g/dL Albumin (3.5-5.0) g/dL Influenza Type A Ag (NEGATIVE) Influenza Type B Ag (NEGATIVE) RSV (PCR) (NEGATIVE) SARS-CoV-2 (PCR) (NEGATIVE) ABO Group Rh Factor Antibody Screen (NEGATIVE) Crossmatch (COMPATIBLE) 08/14/23 08/14/23 08/14/23 Range/Units 13:40 13:40 13:44 WBC (4.0-10.5) x10^3/uL RBC (4.1-5.4) x10^6/uL Hgb (12.0-16.0) g/dL Hct (35-47) % MCV (78-100) fL MCH (26-32) pg MCHC (32-36) g/dL RDW (11.5-14.0) % Plt Count (150-450) x10^3/uL MPV (7.5-11.0) fL Gran % (36.0-66.0) % Immature Gran % (Auto) (0.00-0.4) % Nucleat RBC Rel Count (0.00-0.1) % Eos # (Auto) (0-0.5) x10^3/uL Immature Gran # (Auto) (0.00-0.03) x10^3u/L Absolute Lymphs (auto) (1.0-4.6) x10^3/uL Absolute Monos (auto) (0.0-1.3) x10^3/uL Absolute Nucleated RBC (0.00-0.01) x10^3u/L Lymphocytes % (24.0-44.0) % Monocytes % (0.0-12.0) % Eosinophils % (0.00-5.0) % Basophils % (0.0-0.4) % Absolute Granulocytes (1.4-6.9) x10^3/uL Segmented Neutrophils (36.0-66.0) % Lymphocytes (Manual) (24-44) % Monocytes (Manual) (0.0-12.0) % Basophils # (0-0.4) x10^3/uL Nucleated RBCs % Hypochromia Platelet Estimate (NORMAL) RBC Morphology Polychromasia Anisocytosis Microcytosis PT 36.8 H (9.4-12.5) SECONDS INR 3.68 H (0.8-3.0) Sodium 136 L (137-145) mmol/L Potassium 4.0 (3.5-5.1) mmol/L Chloride 106 (98-107) mmol/L Carbon Dioxide 23 (22-30) mmol/L Anion Gap 11.1 (5-15) MEQ/L BUN 12 (7-17) mg/dL Creatinine 1.13 H (0.52-1.04) mg/dL Estimated GFR 53.0 ML/MIN Glucose 94 (74-106) mg/dL Lactic Acid (0.4-2.0) Calcium 8.4 (8.4-10.2) mg/dL Magnesium 2.0 (1.6-2.3) mg/dL Total Bilirubin 0.70 (0.2-1.3) mg/dL AST 54 H (14-36) U/L ALT 18 (0-35) U/L Alkaline Phosphatase 60 (38-126) U/L Troponin I 0.045 H* (0.000-0.034) ng/mL NT-Pro-B Natriuret Pep 1540 (<300) pg/mL Serum Total Protein 6.4 (6.3-8.2) g/dL Albumin 3.3 L (3.5-5.0) g/dL Influenza Type A Ag (NEGATIVE) Influenza Type B Ag (NEGATIVE) RSV (PCR) (NEGATIVE) SARS-CoV-2 (PCR) (NEGATIVE) ABO Group Rh Factor Antibody Screen (NEGATIVE) Crossmatch (COMPATIBLE) 08/14/23 08/14/23 08/14/23 Range/Units 13:44 15:26 16:00 WBC (4.0-10.5) x10^3/uL RBC (4.1-5.4) x10^6/uL Hgb (12.0-16.0) g/dL Hct (35-47) % MCV (78-100) fL MCH (26-32) pg MCHC (32-36) g/dL RDW (11.5-14.0) % Plt Count (150-450) x10^3/uL MPV (7.5-11.0) fL Gran % (36.0-66.0) % Immature Gran % (Auto) (0.00-0.4) % Nucleat RBC Rel Count (0.00-0.1) % Eos # (Auto) (0-0.5) x10^3/uL Immature Gran # (Auto) (0.00-0.03) x10^3u/L Absolute Lymphs (auto) (1.0-4.6) x10^3/uL Absolute Monos (auto) (0.0-1.3) x10^3/uL Absolute Nucleated RBC (0.00-0.01) x10^3u/L Lymphocytes % (24.0-44.0) % Monocytes % (0.0-12.0) % Eosinophils % (0.00-5.0) % Basophils % (0.0-0.4) % Absolute Granulocytes (1.4-6.9) x10^3/uL Segmented Neutrophils (36.0-66.0) % Lymphocytes (Manual) (24-44) % Monocytes (Manual) (0.0-12.0) % Basophils # (0-0.4) x10^3/uL Nucleated RBCs % Hypochromia Platelet Estimate (NORMAL) RBC Morphology Polychromasia Anisocytosis Microcytosis PT (9.4-12.5) SECONDS INR (0.8-3.0) Sodium (137-145) mmol/L Potassium (3.5-5.1) mmol/L Chloride (98-107) mmol/L Carbon Dioxide (22-30) mmol/L Anion Gap (5-15) MEQ/L BUN (7-17) mg/dL Creatinine (0.52-1.04) mg/dL Estimated GFR ML/MIN Glucose (74-106) mg/dL Lactic Acid 1.9 (0.4-2.0) Calcium (8.4-10.2) mg/dL Magnesium (1.6-2.3) mg/dL Total Bilirubin (0.2-1.3) mg/dL AST (14-36) U/L ALT (0-35) U/L Alkaline Phosphatase (38-126) U/L Troponin I (0.000-0.034) ng/mL NT-Pro-B Natriuret Pep (<300) pg/mL Serum Total Protein (6.3-8.2) g/dL Albumin (3.5-5.0) g/dL Influenza Type A Ag NEGATIVE (NEGATIVE) Influenza Type B Ag NEGATIVE (NEGATIVE) RSV (PCR) POSITIVE (NEGATIVE) SARS-CoV-2 (PCR) NEGATIVE (NEGATIVE) ABO Group O Rh Factor POSITIVE Antibody Screen NEGATIVE (NEGATIVE) Crossmatch (COMPATIBLE) 08/14/23 08/14/23 08/14/23 Range/Units 16:00 16:00 18:20 WBC (4.0-10.5) x10^3/uL RBC (4.1-5.4) x10^6/uL Hgb (12.0-16.0) g/dL Hct (35-47) % MCV (78-100) fL MCH (26-32) pg MCHC (32-36) g/dL RDW (11.5-14.0) % Plt Count (150-450) x10^3/uL MPV (7.5-11.0) fL Gran % (36.0-66.0) % Immature Gran % (Auto) (0.00-0.4) % Nucleat RBC Rel Count (0.00-0.1) % Eos # (Auto) (0-0.5) x10^3/uL Immature Gran # (Auto) (0.00-0.03) x10^3u/L Absolute Lymphs (auto) (1.0-4.6) x10^3/uL Absolute Monos (auto) (0.0-1.3) x10^3/uL Absolute Nucleated RBC (0.00-0.01) x10^3u/L Lymphocytes % (24.0-44.0) % Monocytes % (0.0-12.0) % Eosinophils % (0.00-5.0) % Basophils % (0.0-0.4) % Absolute Granulocytes (1.4-6.9) x10^3/uL Segmented Neutrophils (36.0-66.0) % Lymphocytes (Manual) (24-44) % Monocytes (Manual) (0.0-12.0) % Basophils # (0-0.4) x10^3/uL Nucleated RBCs % Hypochromia Platelet Estimate (NORMAL) RBC Morphology Polychromasia Anisocytosis Microcytosis PT (9.4-12.5) SECONDS INR (0.8-3.0) Sodium (137-145) mmol/L Potassium (3.5-5.1) mmol/L Chloride (98-107) mmol/L Carbon Dioxide (22-30) mmol/L Anion Gap (5-15) MEQ/L BUN (7-17) mg/dL Creatinine (0.52-1.04) mg/dL Estimated GFR ML/MIN Glucose (74-106) mg/dL Lactic Acid (0.4-2.0) Calcium (8.4-10.2) mg/dL Magnesium (1.6-2.3) mg/dL Total Bilirubin (0.2-1.3) mg/dL AST (14-36) U/L ALT (0-35) U/L Alkaline Phosphatase (38-126) U/L Troponin I 0.041 H* (0.000-0.034) ng/mL NT-Pro-B Natriuret Pep (<300) pg/mL Serum Total Protein (6.3-8.2) g/dL Albumin (3.5-5.0) g/dL Influenza Type A Ag (NEGATIVE) Influenza Type B Ag (NEGATIVE) RSV (PCR) (NEGATIVE) SARS-CoV-2 (PCR) (NEGATIVE) ABO Group Rh Factor Antibody Screen (NEGATIVE) Crossmatch COMPATIBLE COMPATIBLE (COMPATIBLE) 08/15/23 08/15/23 08/15/23 Range/Units 04:49 04:49 04:49 WBC 9.2 (4.0-10.5) x10^3/uL RBC 3.32 L (4.1-5.4) x10^6/uL Hgb 8.9 L D (12.0-16.0) g/dL Hct 29.3 L (35-47) % MCV 88.3 (78-100) fL MCH 26.8 (26-32) pg MCHC 30.4 L (32-36) g/dL RDW 15.0 H (11.5-14.0) % Plt Count 321 (150-450) x10^3/uL MPV 9.9 (7.5-11.0) fL Gran % (36.0-66.0) % Immature Gran % (Auto) (0.00-0.4) % Nucleat RBC Rel Count (0.00-0.1) % Eos # (Auto) (0-0.5) x10^3/uL Immature Gran # (Auto) (0.00-0.03) x10^3u/L Absolute Lymphs (auto) (1.0-4.6) x10^3/uL Absolute Monos (auto) (0.0-1.3) x10^3/uL Absolute Nucleated RBC (0.00-0.01) x10^3u/L Lymphocytes % (24.0-44.0) % Monocytes % (0.0-12.0) % Eosinophils % (0.00-5.0) % Basophils % (0.0-0.4) % Absolute Granulocytes (1.4-6.9) x10^3/uL Segmented Neutrophils (36.0-66.0) % Lymphocytes (Manual) (24-44) % Monocytes (Manual) (0.0-12.0) % Basophils # (0-0.4) x10^3/uL Nucleated RBCs % Hypochromia Platelet Estimate (NORMAL) RBC Morphology Polychromasia Anisocytosis Microcytosis PT 16.3 H (9.4-12.5) SECONDS INR 1.54 D (0.8-3.0) Sodium 135 L (137-145) mmol/L Potassium 3.7 (3.5-5.1) mmol/L Chloride 109 H (98-107) mmol/L Carbon Dioxide 22 (22-30) mmol/L Anion Gap 8.6 (5-15) MEQ/L BUN 9 (7-17) mg/dL Creatinine 1.07 H (0.52-1.04) mg/dL Estimated GFR 56.6 ML/MIN Glucose 96 (74-106) mg/dL Lactic Acid (0.4-2.0) Calcium 8.2 L (8.4-10.2) mg/dL Magnesium (1.6-2.3) mg/dL Total Bilirubin 0.70 (0.2-1.3) mg/dL AST 47 H (14-36) U/L ALT 18 (0-35) U/L Alkaline Phosphatase 66 (38-126) U/L Troponin I (0.000-0.034) ng/mL NT-Pro-B Natriuret Pep (<300) pg/mL Serum Total Protein 6.0 L (6.3-8.2) g/dL Albumin 2.9 L (3.5-5.0) g/dL Influenza Type A Ag (NEGATIVE) Influenza Type B Ag (NEGATIVE) RSV (PCR) (NEGATIVE) SARS-CoV-2 (PCR) (NEGATIVE) ABO Group Rh Factor Antibody Screen (NEGATIVE) Crossmatch (COMPATIBLE) Radiology Exams: Radiology Procedures Category Date Time Status ABDOMEN AND PELVIS W/0 CONTRAS [CT] Stat Exams 08/14/23 13:18 Completed CHEST WITHOUT CONTRAST [CT] Stat Exams 08/14/23 13:17 Completed Multi-Disciplinary Progress Notes: Multi-Disciplinary Progress Notes 08/15/23 11:51 Pharmacy Note by Malik Hernandez Pharmacy to Manage Warfarin Discussed case with Dr. Nascimento. Patient is sporadic in getting INR checked with MD office. No level checked in all of 2022 Due to pt hematoma and drop in hemoglobin and vitamin k administration.. decided to hold warfarin 1 more day to make sure there is no further bleeding since hemoglobin only increased to 8.9. Per Beckie Patient had missed 3 doses of warfarin last week and has only taken 2 doses this week before coming to hospital .. patient non-compliance. Hold coumadin x 1 more day... recheck hemoglobin in AM ... restart warfarin if hemoglobin returning towards normal. Pharmacy to manage Per Dr. Nascimento we will also try to convince patient to come to [facility]. Joseph LewisPh. Initialized on 08/15/23 11:51 - END OF NOTE 08/15/23 11:15 Case Management Note by Alie Castillo [facility]- PATIENT HAS OXYGEN THRU [facility] THAT WAS ORDERED FOR 2L/NC AT HS ONLY. IF PATIENT NEEDS 24 HR O2 AT DC THIS WILL NEED ORDERED THRU [facility]. ORDER FORM PLACED ON CHART FOR WEEKEND USE. Initialized on 08/15/23 11:15 - END OF NOTE Assessment/Plan (1) RSV bronchiolitis Current Visit: Yes Status: Acute Code(s): J21.0 - ACUTE BRONCHIOLITIS DUE TO RESPIRATORY SYNCYTIAL VIRUS (2) Elevated INR Current Visit: Yes Status: Acute Code(s): R79.1 - ABNORMAL COAGULATION PROFILE (3) Hematoma of abdominal wall Current Visit: Yes Status: Acute Code(s): S30.1XXA - CONTUSION OF ABDOMINAL WALL, INITIAL ENCOUNTER (4) Obesity, Class III, BMI 40-49.9 (morbid obesity) Current Visit: Yes Status: Chronic Code(s): E66.01 - MORBID (SEVERE) OBESITY DUE TO EXCESS CALORIES (5) Anemia Current Visit: Yes Status: Acute Qualifiers: Anemia type: other cause Code(s): D64.9 - ANEMIA, UNSPECIFIED (6) Chronic anticoagulation Current Visit: Yes Status: Acute Code(s): Z79.01 - JAIL (CURRENT) USE OF ANTICOAGULANTS (7) Acute on chronic renal failure Current Visit: Yes Status: Acute Code(s): N17.9 - ACUTE KIDNEY FAILURE, UNSPECIFIED; N18.9 - CHRONIC KIDNEY DISEASE, UNSPECIFIED (8) Weakness Current Visit: Yes Status: Acute Code(s): R53.1 - WEAKNESS (9) Elevated troponin Current Visit: Yes Status: Acute Code(s): R79.89 - OTHER SPECIFIED ABNORMAL FINDINGS OF BLOOD CHEMISTRY (10) COPD exacerbation Current Visit: Yes Status: Acute Code(s): J44.1 - CHRONIC OBSTRUCTIVE PULMONARY DISEASE W (ACUTE) EXACERBATION (11) Diarrhea Current Visit: Yes Status: Acute Assessment & Plan: (1) RSV bronchiolitis Current Visit: Yes Status: Acute Assessment & Plan: - Chest CT Impression: No change compared to ER CT chest exam 3 days ago. Again chronic findings including hiatal hernia with partial intrathoracic stomach, arteriosclerotic disease, degenerative spondylosis, and old granulomatous disease. No new/acute findings on this noncontrast exam. - Azeb, adv - RA 98% - IVF - supportive care - IS - Cough drops - RT eval and treat 1/5 - on 2lNC at 94% - increased SOB and wheezing, steriods and antibiotics added Code(s): J21.0 - ACUTE BRONCHIOLITIS DUE TO RESPIRATORY SYNCYTIAL VIRUS (2) Elevated INR Current Visit: Yes Status: Acute Assessment & Plan: - warfarin held - VItamin K gave in ER - pharmacy in combination with Dr. Nascimento to manage. -PT 16.3, INR 1.54 Code(s): R79.1 - ABNORMAL COAGULATION PROFILE (3) Hematoma of abdominal wall Current Visit: Yes Status: Acute Assessment & Plan: - CT abd. 08/14/23: Impression: 1. New right flank subcutaneous fluid collection as detailed presumed known hematoma. Inflammatory/infectious process not completely excluded on this noncontrast exam. 2. Again chronic findings including arteriosclerotic disease, chronic bony findings, and old granulomatous disease. - Hold warfarin Code(s): S30.1XXA - CONTUSION OF ABDOMINAL WALL, INITIAL ENCOUNTER (4) Obesity, Class III, BMI 40-49.9 (morbid obesity) Current Visit: Yes Status: Chronic Assessment & Plan: - Advised diet and exercise control Code(s): E66.01 - MORBID (SEVERE) OBESITY DUE TO EXCESS CALORIES (5) Anemia Current Visit: Yes Status: Acute Qualifiers: Anemia type: other cause Assessment & Plan: - acute 2:2 elevated PT/INR, hematoma, CKD - 2 units PRBC ordered in ER - Type and screen done in ER - Hgb 7.0- trend - Tele 08/15/23 - Hgb stable 8.9 - H&H Q8 Code(s): D64.9 - ANEMIA, UNSPECIFIED (6) Chronic anticoagulation Current Visit: Yes Status: Acute Assessment & Plan: - For repeat blood clots in legs - Dr. Nascimento manages OP - Warfarin- held - PT 36.8, INR 3.68 - VItamin K gave in ER - pharmacy to dose - trend labs daily Code(s): Z79.01 - SURVEYOR HELPER (CURRENT) USE OF ANTICOAGULANTS (7) Acute on chronic renal failure Current Visit: Yes Status: Acute Assessment & Plan: - IVF started in ER NS @ 125ml/hr - near baseline creat 08/15 - at baseline Code(s): N17.9 - ACUTE KIDNEY FAILURE, UNSPECIFIED; N18.9 - CHRONIC KIDNEY DISEASE, UNSPECIFIED (8) Weakness Current Visit: Yes Status: Acute Assessment & Plan: - PT/OT eval - 2:2 anemia and RSV / - sxs improved today Code(s): R53.1 - WEAKNESS (9) Elevated troponin Current Visit: Yes Status: Acute Assessment & Plan: - trop 0.045, 0.045, 0.041 - denies CP - EKG reviewed will repeat in AM - lielky demand ischemia 10. COPD exacerbation J44.1 - steroids, antibiotics 11. Diarrhea R29.7 - Stool for c-diff sent - Probiotics started VTE: SCD PPI: pantoprazole Next of Kin: Spouse, Anthony Crespo [phone] Code status: SCO/ DNR Code(s): R79.89 - OTHER SPECIFIED ABNORMAL FINDINGS OF BLOOD CHEMISTRY Code(s): R19.7 - DIARRHEA, UNSPECIFIED
[2023-08-15] MEDS: ROCEPHIN 1 Gm-D5w 50 ml Bag** 1 G/50 ML IVPB IV SCH (13:14)
[2023-08-15] MEDS: Acidophilus TABLET PO SCH (13:19)
[2023-08-15 13:27] LABS: Hematocrit 33.8 % (35-47); Hemoglobin 10.1 g/dL (12.0-16.0)
[2023-08-15] MEDS ORDERED: Robitussin-Dm Syrup PO PRN (13:46)
[2023-08-15 20:00] LABS: Hematocrit 30.5 % (35-47); Hemoglobin 9.7 g/dL (12.0-16.0)
[2023-08-15] MEDS ORDERED: MELATONIN PO SCH (22:00)
[2023-08-15] MEDS ORDERED: solu-MEDROL ONE (22:23)
[2023-08-15] MEDS: Zocor 10MG PO SCH (23:03)
[2023-08-15] MEDS: MELATONIN PO SCH (23:05)
[2023-08-16] MEDS: DUONEB 0.5-3 MG/3 ml Neb IH SCH ×2 (01:00→07:25)
[2023-08-16 06:09] LABS: Hematocrit 29.8 % (35-47); Hemoglobin 9.4 g/dL (12.0-16.0); Mean Cell Volume 87.9 fL (78-100); Mean Corpuscular Hemoglobin 27.7 pg (26-32); Mean Corpuscular Hgb Concent. 31.5 g/dL (32-36); Mean Platelet Volume 9.7 fL (7.5-11.0); Platelet Count 375 x10^3/uL (150-450); Red Blood Count 3.39 x10^6/uL (4.1-5.4); Red Cell Distribution Width 15.9 % (11.5-14.0); White Blood Count 9.6 x10^3/uL (4.0-10.5)
[2023-08-16 06:24] LABS: INR 1.1 (0.8-3.0); PROTIME 11.9 SECONDS (9.4-12.5)
[2023-08-16 06:31] LABS: ALBUMIN 3.4 g/dL (3.5-5.0); ANION GAP 10.1 MEQ/L (5-15); BILIRUBIN,TOTAL 0.8 mg/dL (0.2-1.3); Calcium 8.3 mg/dL (8.4-10.2); Creatinine 1 0.88 mg/dL (0.52-1.04); EST GLOMERULAR FILTRATION RATE 71.5 ML/MIN; Potassium 4.2 mmol/L (3.5-5.1); Total Protein 6.7 g/dL (6.3-8.2)
[2023-08-16] MEDS: Cymbalta 30 MG Capsule PO SCH (09:44)
[2023-08-16] MEDS: Calcium 500MG W/Vit D Tablet PO SCH (09:45)
[2023-08-16] MEDS: MAG-OX 400 PO SCH (09:45)
[2023-08-16] MEDS: Lasix 40 MG PO SCH (09:45)
[2023-08-16] MEDS: Neurontin PO SCH (09:45)
[2023-08-16] MEDS: VITAMIN D PO SCH (09:45)
[2023-08-16] MEDS: Acidophilus TABLET PO SCH (09:46)
[2023-08-16] MEDS: ROCEPHIN 1 Gm-D5w 50 ml Bag** 1 G/50 ML IVPB IV SCH (09:46)
[2023-08-16] MEDS: Klor Con PO SCH (09:46)
[2023-08-16] MEDS: Protonix 40MG Tablet PO SCH (09:46)
[2023-08-16] MEDS: solu-MEDROL 40 MG, Sterile H2O 10 ml 1 ML IV SCH ×2 (09:47)
[2023-08-16] MEDS: NON-FORMULARY ITEM PO SCH (09:47)
[2023-08-16] MEDS: SYNTHROID 88 MCG PO SCH (09:48)
[2023-08-16] MEDS: Lotensin PO SCH (09:58)
--- NOTE | 2023-08-16 12:24 | PCM.DS ---
Discharge Summary Date of Admission: 08/14/23 17:12 Date of Discharge: 08/16/23 Admitting Physician: LINDSEY MONGE MD Primary Care Provider: JACKY MARIA Allergies Allergies Latex, Natural Rubber Allergy (Intermediate, Verified 08/20/22 16:34) methotrexate Allergy (Intermediate, Verified 08/20/22 16:34) Hospital Summary - Hospital Course Hospital Course: 08/14/23 is a 67 year old female with PMHX of HTN, COPD, OA, Fibromyalgia, chronic morbid obesity, chronic headaches, RA, anxiety, Stage 3 CKD, spondylosis, and O2 2LNC at [facility]. Pt came in to the ER with complaints of increased SOB, generalized weakness, fatigue and tiredness since Friday. She gets short of breath with minimal activity. Patient also reports increasing pain on the right side of her belly with a bruising. No nausea or vomiting reported. Denies any hemoptysis/hematochezia/hematemesis. No fever or chills reported. Reports having wheezing which is a little worse than usual. Feeling lightheaded with standing. Patient was seen in ER Friday and dx with RSV, Bro nchitis, Sinusitis and prescribed sterioids, nebulizer and atbx. Hgb was found to be 7.0 and blood transfusion ordered in ER. It is thought to be r/t elevated PT/INR on warfarin and hematoma she obatined when being transferred to cot Friday in radiology. Will keep pt overnight and most likely d/c tomorrow. She is on RA at 97%. Will continue IVF, breathing txs, abd finish blood products. 08/15/23 Pt resting in bed. She was able to get up with PT in the room and walk and did well. She has increased wheezing today. Will start steroids and antibiotics for COPD exacerbation. She has some diarrhea today will test for c-diff d/t recent antibiotic use. Will start probiotics. Hgb is stable at 8.9 after 2 units of PRBC yesterday. Will continue to monitor hgb. Pharmacy managing warfarin and discussed with Dr. Maria her PCP as he manages this OP. He advised to continue to hold for now and monitor HGB. However this will need to be restarted to her hx of multiple blood clots in legs. Pt wanting to d/c but explained she should at least wait one more day. She denies CP, N/V. 08/16/23 Pt resting in bed. She is feeling much stronger today. Lung sounds have improved since yesterday. She is no longer SOB. YURIY has resolved. Diarrhea has stopped. Hgb is stable. Coumadin to be restarted today. She is agreeable to f/u with the coumadin clinic here at the hospital. They will call her for for an appointment. She is wanting to go home today. - Vitals & Intake/Output Vital Signs: Vital Signs Temperature 97.3 F 08/16/23 07:26 Pulse Rate 83 08/16/23 09:58 Respiratory Rate 18 08/16/23 07:31 Blood Pressure 111/57 08/16/23 09:58 O2 Sat by Pulse Oximetry 97 08/16/23 07:31 Intake & Output: Intake & Output 08/14/23 08/15/23 08/16/23 08/17/23 11:59 11:59 11:59 11:59 Intake Total 1362 1380 Balance 1362 1380 Weight 119.8 kg - Lab Result Diagrams: 08/16/23 05:30 08/16/23 05:30 Lab Results-Last 24 Hrs: Lab Results-Last 24 Hours 08/15/23 08/15/23 08/15/23 Range/Units 12:30 12:32 16:24 WBC (4.0-10.5) x10^3/uL RBC (4.1-5.4) x10^6/uL Hgb 10.1 L (12.0-16.0) g/dL Hct 33.8 L (35-47) % MCV (78-100) fL MCH (26-32) pg MCHC (32-36) g/dL RDW (11.5-14.0) % Plt Count (150-450) x10^3/uL MPV (7.5-11.0) fL PT (9.4-12.5) SECONDS INR (0.8-3.0) Sodium (137-145) mmol/L Potassium (3.5-5.1) mmol/L Chloride (98-107) mmol/L Carbon Dioxide (22-30) mmol/L Anion Gap (5-15) MEQ/L BUN (7-17) mg/dL Creatinine (0.52-1.04) mg/dL Estimated GFR ML/MIN Glucose (74-106) mg/dL POC Glucometer 97 154 H (74 to 106) mg/dL Calcium (8.4-10.2) mg/dL Total Bilirubin (0.2-1.3) mg/dL AST (14-36) U/L ALT (0-35) U/L Alkaline Phosphatase (38-126) U/L Serum Total Protein (6.3-8.2) g/dL Albumin (3.5-5.0) g/dL 08/15/23 08/16/23 08/16/23 Range/Units 19:55 05:30 05:30 WBC 9.6 (4.0-10.5) x10^3/uL RBC 3.39 L (4.1-5.4) x10^6/uL Hgb 9.7 L 9.4 L (12.0-16.0) g/dL Hct 30.5 L 29.8 L (35-47) % MCV 87.9 (78-100) fL MCH 27.7 (26-32) pg MCHC 31.5 L (32-36) g/dL RDW 15.9 H (11.5-14.0) % Plt Count 375 (150-450) x10^3/uL MPV 9.7 (7.5-11.0) fL PT (9.4-12.5) SECONDS INR (0.8-3.0) Sodium 135 L (137-145) mmol/L Potassium 4.2 (3.5-5.1) mmol/L Chloride 106 (98-107) mmol/L Carbon Dioxide 23 (22-30) mmol/L Anion Gap 10.1 (5-15) MEQ/L BUN 11 (7-17) mg/dL Creatinine 0.88 (0.52-1.04) mg/dL Estimated GFR 71.5 ML/MIN Glucose 149 H (74-106) mg/dL POC Glucometer (74 to 106) mg/dL Calcium 8.3 L (8.4-10.2) mg/dL Total Bilirubin 0.80 (0.2-1.3) mg/dL AST 45 H (14-36) U/L ALT 21 (0-35) U/L Alkaline Phosphatase 73 (38-126) U/L Serum Total Protein 6.7 (6.3-8.2) g/dL Albumin 3.4 L (3.5-5.0) g/dL 08/16/23 08/16/23 08/16/23 Range/Units 05:30 07:19 12:03 WBC (4.0-10.5) x10^3/uL RBC (4.1-5.4) x10^6/uL Hgb (12.0-16.0) g/dL Hct (35-47) % MCV (78-100) fL MCH (26-32) pg MCHC (32-36) g/dL RDW (11.5-14.0) % Plt Count (150-450) x10^3/uL MPV (7.5-11.0) fL PT 11.9 (9.4-12.5) SECONDS INR 1.10 D (0.8-3.0) Sodium (137-145) mmol/L Potassium (3.5-5.1) mmol/L Chloride (98-107) mmol/L Carbon Dioxide (22-30) mmol/L Anion Gap (5-15) MEQ/L BUN (7-17) mg/dL Creatinine (0.52-1.04) mg/dL Estimated GFR ML/MIN Glucose (74-106) mg/dL POC Glucometer 146 H 166 H (74 to 106) mg/dL Calcium (8.4-10.2) mg/dL Total Bilirubin (0.2-1.3) mg/dL AST (14-36) U/L ALT (0-35) U/L Alkaline Phosphatase (38-126) U/L Serum Total Protein (6.3-8.2) g/dL Albumin (3.5-5.0) g/dL Micro Results-Entire Visit: Microbiology 08/14/23 13:54 Blood Culture - Preliminary Blood 08/14/23 13:44 Blood Culture - Preliminary Blood 08/15/23 Unknown Stool Culture Result 1 - Final Stool Not Reportable Stool Culture Result 2 - Final Not Reportable Stool Culture Result 3 - Final Not Reportable Stool Culture Result 4 - Final Not Reportable Stool Culture Organism Suscept - Final Not Reportable Campylobacter Result 1 - Final Not Reportable Campylobacter Result 2 - Final Not Reportable Campylobactor Result 3 - Final Not Reportable Campylobacter Result 4 - Final Not Reportable Campylobactor Susceptibility - Final Not Reportable Accuchecks Date 08/16/23 Date 08/15/23 Time 07:26 Time 17:02 - Radiology Exams Ordered Rad Exams-Entire Visit: Radiology Procedures Category Date Time Status ABDOMEN AND PELVIS W/0 CONTRAS [CT] Stat Exams 08/14/23 13:18 Completed CHEST WITHOUT CONTRAST [CT] Stat Exams 08/14/23 13:17 Completed - Procedures and Test Procedures and Tests throughout Hospitalization: Therapy Orders & Screens 08/14/23 13:28 Respiratory Therapy Assessment DAILY Comment: 08/14/23 17:12 Oxygen Nasal Cannula 2 lpm Comment: Respiratory Therapy Consult ONCE Comment: Reason For Exam: 08/14/23 17:35 Respiratory Therapy Assessment DAILY Comment: Diagnosis: bronchitis 08/14/23 17:47 EKG REPEAT IN AM Comment: Diagnosis: bronchitis 08/14/23 17:50 Incentive Spirometry UD Comment: Diagnosis: bronchitis 08/14/23 18:15 RT Screen per Nursing Assess ONCE Comment: Protocol Order Physician Instructions: Greater than 3 points order RT Admission Screen Reason For Exam: Triggered on Admission Diagnosis: bronchitis Diagnosis: bronchitis Pneumonia: No Home O2: Yes Asthma: No CHF: No Home CPAP/BIPAP: No Home Nebs/MDI: Yes Total Points: 10 08/14/23 18:43 PT Eval & Treat (MD Order) ONCE Reason for Eval:: weakness Diagnosis: bronchitis OT Eval and Treat (MD Order) ONCE Comment: Physician Instructions: Reason For Exam: Diagnosis: bronchitis 08/14/23 18:48 Respiratory MDI BID Comment: Diagnosis: bronchitis 08/14/23 18:58 Oxygen Nasal Cannula 2 lpm Comment: at bedtime- this is pt's baseline O2 Diagnosis: bronchitis Discharge Exam General Appearance: no apparent distress, alert Neurologic Exam: alert, oriented x 3, cooperative, normal mood/affect, nml cerebellar function, sensation nml, No motor deficits Eye Exam: PERRL, EOMI, eyes nml inspection Ears, Nose, Throat Exam: normal ENT inspection, pharynx normal, moist mucous membranes Neck Exam: normal inspection, non-tender, supple, full range of motion Respiratory Exam: normal breath sounds, lungs clear, wheezing, No respiratory distress Cardiovascular Exam: regular rate/rhythm, normal heart sounds Gastrointestinal/Abdomen Exam: soft, No tenderness, No mass Pelvic Exam: deferred Rectal Exam: deferred Back Exam: normal inspection, normal range of motion, No CVA tenderness, No vertebral tenderness Extremity Exam: normal inspection, normal range of motion Skin Exam: normal color, warm, dry Final Diagnosis/Problem List - Final Discharge Diagnosis/Problem (1) RSV bronchiolitis Current Visit: Yes Status: Acute Assessment & Plan: - Chest CT Impression: No change compared to ER CT chest exam 3 days ago. Again chronic findings including hiatal hernia with partial intrathoracic stomach, arteriosclerotic disease, degenerative spondylosis, and old granulomatous disease. No new/acute findings on this noncontrast exam. - Duonebs, advair - RA 98% - IVF - supportive care - IS - Cough drops for cough - RT eval and treat 1/5 - on 2lNC at 94% - increased SOB and wheezing, steriods and antibiotics added /6 - On BL 2 LNC at noc only - SOB and wheezing improved Code(s): J21.0 - ACUTE BRONCHIOLITIS DUE TO RESPIRATORY SYNCYTIAL VIRUS (2) Elevated INR Current Visit: Yes Status: Acute Assessment & Plan: - warfarin held - VItamin K gave in ER - pharmacy in combination with Dr. Maria to manage. -PT 16.3, INR 1.54 1/6 - PT 11.9, INR 1.10 - pharmacy to restart Coumadin today - hgb stable Code(s): R79.1 - ABNORMAL COAGULATION PROFILE (3) Hematoma of abdominal wall Current Visit: Yes Status: Acute Assessment & Plan: - CT abd. 08/14/23: Impression: 1. New right flank subcutaneous fluid collection as detailed presumed known hematoma. Inflammatory/infectious process not completely excluded on this noncontrast exam. 2. Again chronic findings including arteriosclerotic disease, chronic bony findings, and old granulomatous disease. - Hold warfarin Code(s): S30.1XXA - CONTUSION OF ABDOMINAL WALL, INITIAL ENCOUNTER (4) Obesity, Class III, BMI 40-49.9 (morbid obesity) Current Visit: Yes Status: Chronic Assessment & Plan: - Advised diet and exercise control Code(s): E66.01 - MORBID (SEVERE) OBESITY DUE TO EXCESS CALORIES (5) Anemia Current Visit: Yes Status: Acute Assessment & Plan: - acute 2:2 elevated PT/INR, hematoma, CKD - 2 units PRBC ordered in ER - Type and screen done in ER - Hgb 7.0- trend - Tele 08/15/23 - Hgb stable 8.9 - H&H Q8 08/16/23 - Hgb stable at 9.4 Code(s): D64.9 - ANEMIA, UNSPECIFIED (6) Chronic anticoagulation Current Visit: Yes Status: Acute Assessment & Plan: 08/15 - For repeat blood clots in legs - Dr. Maria manages OP - Warfarin- held - PT 36.8, INR 3.68 - VItamin K gave in ER - pharmacy to dose - trend labs daily 08/16 - resume Coumadin at home dose per pharmacy - they will call her for Op appointment at Coumadin clinic - PT 11.9, INR 1.10 - Hgb stable 9.4 Code(s): Z79.01 - SNF (CURRENT) USE OF ANTICOAGULANTS (7) Acute on chronic renal failure Current Visit: Yes Status: Acute Assessment & Plan: - IVF started in ER NS @ 125ml/hr - near baseline creat 08/15 - at baseline Code(s): N17.9 - ACUTE KIDNEY FAILURE, UNSPECIFIED; N18.9 - CHRONIC KIDNEY DISEASE, UNSPECIFIED (8) Weakness Current Visit: Yes Status: Acute Assessment & Plan: - PT/OT eval - 2:2 anemia and RSV 08/15 - sxs improved today 08/16 - resolved Code(s): R53.1 - WEAKNESS (9) Elevated troponin Current Visit: Yes Status: Acute Assessment & Plan: - trop 0.045, 0.045, 0.041 - denies CP - EKG reviewed - likely demand ischemia Code(s): R79.89 - OTHER SPECIFIED ABNORMAL FINDINGS OF BLOOD CHEMISTRY (10) COPD exacerbation Current Visit: Yes Status: Acute Assessment & Plan: - steroids, antibiotics - on 2LNC BL at noc Code(s): J44.1 - CHRONIC OBSTRUCTIVE PULMONARY DISEASE W (ACUTE) EXACERBATION (11) Diarrhea Current Visit: Yes Status: Acute Assessment & Plan: - Stool for c-diff was not sent- per nursing unable to obatin sample - Probiotics started - diarrhea stopped Code(s): R19.7 - DIARRHEA, UNSPECIFIED - Discharge Discharge Date: 08/16/23 Disposition: Home, Self-Care Condition: Fair Prescriptions: New Prednisone 20 mg [Deltasone 20 mg] 20 mg PO BID 5 Days #10 tablet Cefuroxime Axetil 500 mg [Ceftin 500 mg] 500 mg PO BID 5 Days #10 tablet Continue Alendronate Sodium 35 mg PO WEEKLY Furosemide 20 mg [Lasix 20 mg] 40 mg PO DAILY Potassium Chloride Tab* [Klor Con] 20 meq PO QAM Gabapentin [Neurontin ] 800 mg PO TID Warfarin Sodium [Coumadin] 4 mg PO DAILY Duloxetine HCl 60 mg PO QAM Atorvastatin Calcium 10 mg PO QPM PANTOPRAZOLE 40 mg Tablet [Protonix 40MG Tablet] 80 mg PO DAILY Albuterol Sulfate 1 neb IH Q6H Albuterol Sulfate [Albuterol Sulfate Hfa] 2 puff IH QID Cholecalciferol (Vitamin D3) [Vitamin D] 3,000 tab PO DAILY Magnesium Oxide 400 mg [Mag-Ox 400] 400 mg PO DAILY Semaglutide [Ozempic] 0.5 mg SQ WEEKLY Metoprolol Succinate 25 mg Xl* [Toprol-Xl 25MG Tablets] 25 mg PO DAILY Melatonin 10 mg PO HS Meclizine HCl 25 mg [Antivert 25 mg] 25 mg PO TIDPRN PRN PRN Reason: Dizziness Levothyroxine Sodium 88 Mcg [Synthroid 88 Mcg] 88 mcg PO DAILY Hydroxychloroquine Sulfate [Plaquenil] 200 mg PO DAILY Calcium Carbonate [Calcium] 1,200 mg PO DAILY Benazepril HCl 5 mg PO DAILY Cetirizine HCl [Zyrtec] 10 mg PO DAILY PRN PRN PRN Reason: Allergies Additional Instructions: Take Coumadin as you were starting with tonights dose. They will call you with a date and time for the coumadin clinic appointment. You can take OTC probiotics for diarrhea if needed since they were helpful. Follow up with: JACKY MARIA [Primary Care Provider] -
[2023-08-16 13:17] VITALS: BP 128/59; PULSE 89; RESP 17; TEMP 97
[2023-08-16] MEDS: Toprol-Xl 25MG Tablets PO SCH (13:55)
[2023-08-16] MEDS ORDERED: Coumadin 2 MG PO SCH (18:00)
[2023-08-16 20:33] VITALS: O2SAT 96
[2023-08-17] MEDS ORDERED: Fosamax 70 MG PO SCH (06:00)
[2023-08-18] MEDS ORDERED: Coumadin 3 MG PO SCH (18:00)
== END 2023-08-16 13:47 | disposition home or self-care (01) ==
LOC: ED 12:52 → MED SURG 17:12
PROVIDERS: ADMIT Internal Medicine; ATTEND Internal Medicine
DX: J21.0 Acute bronchiolitis due to respiratory syncytial virus (principal); R79.1 Abnormal coagulation profile; S30.1XXA Contusion of abdominal wall, initial encounter; E66.01 Morbid (severe) obesity due to excess calories; D64.9 Anemia, unspecified; Z79.01 Long term (current) use of anticoagulants; N17.9 Acute kidney failure, unspecified; I12.9 Hypertensive chronic kidney disease with stage 1 through stage 4 chronic kidney disease, or unspecified chronic kidney disease; N18.30 Chronic kidney disease, stage 3 unspecified; R53.1 Weakness; R79.89 Other specified abnormal findings of blood chemistry; J44.1 Chronic obstructive pulmonary disease with (acute) exacerbation; R19.7 Diarrhea, unspecified; Z79.899 Other long term (current) drug therapy; Z20.828 Contact with and (suspected) exposure to other viral communicable diseases
CPT/HCPCS: 0241U; 36000; 36140; 36415; 36430; 71250; 74176; 80053; 82947; 83605; 83735; 83880; 84484; 85014; 85018; 85025; 85027; 85610; 86850; 86900; 86901; 86922; 87040; 93005; 93041; 94640; 94760; 94762; 97161; 99284; P9016; Q3014; 93268; J0696; J2920; J3430; A9270-GY; G0378